=== PATIENT | female | born 1940 | race Caucasian/White ===

== ENCOUNTER 2016-04-27 07:32 | Inpatient (IN) | payer MEDICARE ==
[~2016-04-27] VITALS: Ht 157.5 cm; Wt 103.9 kg
[2016-05-04] MEDS ORDERED: ZOVI400T PO (11:19)
[2016-05-04] MEDS ORDERED: FLUO40CA PO (11:19)
[2016-05-04] MEDS ORDERED: FOLI1TAB4 PO (11:19)
--- NOTE | 2016-05-04 11:35 | MH ---
cc: Siria JAIN M.D. DATE OF ADMISSION: 05/09/2016 ADMITTING DIAGNOSIS Osteoarthritic degeneration, left knee. HISTORY OF PRESENT ILLNESS This pleasant 75-year-old diabetic, morbidly obese female is being admitted today for left total knee arthroplasty due to severe painful osteoarthritic degeneration left knee. PAST MEDICAL HISTORY 1. She recently underwent a right total knee in October. 2. History of anemia. 3. Anesthetic problems. 4. Depression. 5. Diabetes. 6. Emphysema. MEDICATIONS Current medications include: 1. Some skin creams. 2. Welchol. 3. Prempro. 4. Benicar. 5. p.o. glitazone. 6. Mercaptopurine. 7. Fluoxetine. 8. Bydureon. 9. Valacyclovir. REVIEW OF SYSTEMS Noncontributory. FAMILY HISTORY Noncontributory. PAST SURGICAL HISTORY Other surgeries include: 1. Carpal tunnel release. 2. Meniscal surgery. 3. Cholecystectomy. 4. Left ankle fracture surgery. SOCIAL HISTORY She does not smoke or drink. ALLERGIES No known allergies. PHYSICAL EXAMINATION GENERAL: We find a 75-year-old female well-developed, well-nourished, oriented x3, complaining of pain in her left knee. VITAL SIGNS: Blood pressure 122/78, pulse 78 and regular, respirations 18, temperature 97.7, pulse oximetry 97% on room air. HEENT: Eyes PERRLA, EOMI. Ears, nose and mouth clear. NECK: Supple. LUNGS: Clear. HEART: Regular rate. ABDOMEN: Soft. Positive bowel sounds. Nontender. EXTREMITIES: The left knee is tender with crepitance on range of motion. Neurovascularly intact to her toes. IMPRESSION The impression at this time is severe painful osteoarthritic degeneration, left knee. PLAN Admission for a left total knee arthroplasty today. The patient was given a prescription for postoperative pain and anticoagulation control in the office and understands to use the Hibiclens scrub and Bactroban preoperatively. MD MIRELLA Rice/ZOILA /2:33 PM /11:29 AM
[2016-05-04] MEDS ORDERED: MERC50TA PO (12:14)
[2016-05-04] MEDS ORDERED: PIOG30TA4 PO (12:19)
[2016-05-04] MEDS ORDERED: COLE1PAK PO (12:19)
[2016-05-04] MEDS ORDERED: EXEN1INJ SQ (12:19)
[2016-05-04] MEDS ORDERED: BENI40TA7 PO (12:19)
[2016-05-09] VITALS (7 sets, daily range): BP systolic 118–142; BP diastolic 49–63; PULSE 76–97; RESP 16–18; TEMP 96–99.6; O2SAT 96–98
[2016-05-09] MEDS ORDERED: LACTATED RINGER'S 1000 ML IV SCH (06:00)
[2016-05-09] MEDS ORDERED: INSULIN HUMAN REGULAR 1,000 UNITS/10 ML VIAL SQ PRN (06:00)
[2016-05-09] MEDS ORDERED: METOPROLOL TARTRATE 25 MG TAB PO PRN (06:00)
[2016-05-09] MEDS ORDERED: SODIUM CHLORID 0.9% 500 ML IV SCH (06:00)
[2016-05-09] MEDS ORDERED: VANCOMYCIN HCL 1000 MG VIAL ONE (06:06)
[2016-05-09] MEDS ORDERED: SODIUM CHLOR 0.9% 250 ML INJ 250 ML ONE (06:06)
[2016-05-09] MEDS ORDERED: VALA1TAB PO (06:07)
[2016-05-09 06:14] LABS: AUTOMATED NEUTROPHIL # 3.9 TH/MM3 (1.8-7.7); BASOPHIL # 0.1 TH/MM3 (0-0.2); BASOPHIL % 1.2 % (0.0-2.0); EOSINOPHIL # 0.1 TH/MM3 (0-0.4); EOSINOPHIL % 2.4 % (0.0-4.0); HEMO FLAGS DIFF FINAL; LYMPH % 23.4 % (9.0-44.0); LYMPHOCYTE # 1.4 TH/MM3 (1.0-4.8); MEAN CORPUSCULAR HEMOGLOBIN 34.4 PG (27.0-34.0); MEAN CORPUSCULAR HGB CONC 34.4 % (32.0-36.0); MONO % 8.2 % (0.0-8.0); NEUT % 64.8 % (16.0-70.0); PLATELET COUNT 241 TH/MM3 (150-450); RED CELL DISTRIBUTION WIDTH 16.2 % (11.6-17.2)
[2016-05-09] MEDS ORDERED: ceFAZolin 2 GM PREMIX 50 ML IV SCH (06:15)
[2016-05-09] MEDS ORDERED: CHLORHEXIDINE GLUCONATE 4% SOLN 120 ML BTL TOP SCH (06:15)
[2016-05-09] MEDS: TRANEXAMIC ACID IV SCH ×2 (06:15→08:26)
[2016-05-09] MEDS: SODIUM CHLORIDE 0.9% IV SCH ×2 (06:15→08:26)
[2016-05-09] MEDS ORDERED: VANCOMYCIN 1000 MG/NS 250 ML (for <70 kg) IV SCH ×2 (06:15)
[2016-05-09 06:24] LABS: BLOOD, URINE NEG (NEG); GLUCOSE,URINE NEG (NEG); GRANULAR CAST, URINE 1 /lpf; KETONE, URINE NEG (NEG); NITRITE,URINE NEG (NEG); SQUAMOUS EPITHELIAL CELL URINE <1 /hpf (0-5); TRANSITIONAL EPI CELLS, URINE 1 /hpf; URINE COLOR YELLOW (YELLW/STRAW)
[2016-05-09 06:31] LABS: ALKALINE PHOSPHATASE 75 U/L (45-117); TOTAL BILIRUBIN ADULT 0.3 MG/DL (0.2-1.0)
[2016-05-09 06:32] LABS: COMMENT (UR) CATH-CULT NOT IND; CULTURE IF INDICATED CATH CULTURE NOT IND
[2016-05-09 06:32] LABS: ALT (GPT) 26 U/L (10-53); ANION GAP 8 MEQ/L (5-15); AST (GOT) 26 U/L (15-37); BICARBONATE 23.3 MEQ/L (21.0-32.0); BLOOD UREA NITROGEN 25 MG/DL (7-18); CHLORIDE 109 MEQ/L (98-107); GLOMERULAR FILTRATION RATE 53 ML/MIN (>89); POTASSIUM 4.7 MEQ/L (3.5-5.1); SODIUM (NA) 140 MEQ/L (136-145)
[2016-05-09 06:36] LABS: APTT (PATIENT) 26.4 SEC (24.3-30.1); INTERNATIONAL NORMALIZED RATIO 0.9 RATIO; PROTHROMBIN TIME - PATIENT 9.9 SEC (9.8-11.6)
[2016-05-09] MEDS ORDERED: METOCLOPRAMIDE HCL 10 MG/2 ML VIAL ONE (07:12)
[2016-05-09] MEDS ORDERED: DEXAMETHASONE SOD PHOS 4 MG/ML VIAL ONE (07:12)
[2016-05-09] MEDS ORDERED: FAMOTIDINE 20 MG/2 ML VIAL ONE (07:12)
[2016-05-09] MEDS ORDERED: MIDAZOLAM HCL 5 MG/5 ML VIAL ONE (07:12)
[2016-05-09] MEDS: BUPIVACAINE LIPOSO PF 1.3% INJ 20 ML, BUPIVACAINE PF 0.25% INJ 20 ML in SODIUM CHLORIDE... P-ARTICULR SCH ×2 (07:30→10:10)
[2016-05-09] MEDS ORDERED: TOBRAMYCIN SULFATE 1200 MG VIAL ONE (08:32)
--- NOTE | 2016-05-09 08:43 | HHI.FF ---
Face to Face Verification Diagnosis: (1) Total knee replacement status Physical Therapy Gait training Knee: Total knee, Protocol: Left, Full weight bearing Canvas Knee Splint: When in bed & 2 pillows btw thighs Nursing RN: 3 days/week x 2 weeks Nursing: Ramila teaching, Dressing changes Dressing Changes: Daily dressing change, 4x4s, Gauze, Paper tape I have seen patient Sweta Dawson on 05/09/16. My clinical findings support the need for the requested home health care services because: Limited ability to care for self Infection w/ risk of complications I certify that my clinical findings support that this patient is homebound because: Unsteady gait/balance Siria Rios MD May 09, 2016 08:43
[2016-05-09] MEDS ORDERED: TEMAZEPAM 15 MG CAP PO PRN (08:45)
[2016-05-09] MEDS ORDERED: NALOXONE HCL 0.4 MG/ML AMP IV PRN (08:45)
[2016-05-09] MEDS ORDERED: TRANEXAMIC ACID INJ 0 MG in SODIUM CHLORIDE 0.9% INJ 100 ML IV SCH (08:45)
[2016-05-09] MEDS ORDERED: diphenhydrAMINE HCL 50 MG/ML VIAL IV PRN (08:45)
[2016-05-09] MEDS ORDERED: ACETAMINOPHEN 325 MG TAB PO PRN (08:45)
[2016-05-09] MEDS ORDERED: SODIUM CHLORIDE 0.9% FLUSH 5 ML FLUSH IVF PRN (08:45)
[2016-05-09] MEDS ORDERED: ACETAMINOPHEN/HYDROcodone 325 MG/7.5 MG TAB PO PRN (08:45)
[2016-05-09] MEDS: SODIUM CHLORIDE 0.9% FLUSH 5 ML FLUSH IVF SCH ×2 (09:00→21:39)
[2016-05-09] MEDS: MERCAPTOPURINE 50 MG TAB PO SCH (09:00)
[2016-05-09] MEDS ORDERED: ceFAZolin INJ 1,000 MG VIAL XX ONE (09:00)
[2016-05-09] MEDS ORDERED: SODIUM CHLORIDE 0.9% IV SCH (09:00)
[2016-05-09] MEDS ORDERED: NON-FORMULARY DRUG (Olmesartan-Hydrochlorothiazide (Benicar Hct) 1 TAB) PO SCH (09:00)
[2016-05-09] MEDS: valACYclovir HCL 500 MG TAB PO SCH (09:00)
[2016-05-09] MEDS: FOLIC ACID 1 MG TAB PO SCH (09:00)
[2016-05-09] MEDS: PIOGLITAZONE HCL 30 MG TAB PO SCH (09:00)
[2016-05-09] MEDS ORDERED: TRANEXAMIC ACID IV SCH (09:00)
[2016-05-09] MEDS: COLESEVELAM HCL 625 MG TAB PO SCH (09:00)
[2016-05-09] MEDS ORDERED: TOBRAMYCIN SULFATE 1200 MG VIAL OTHER ONE ×2 (09:28→10:04)
--- NOTE | 2016-05-09 09:32 | PD.CONS ---
HPI Service [facility] Consult Requested By Dr Rios Reason for Consult medical management Primary Care Physician Taco Jaramillo Diagnoses: (1) Diabetes (2) Emphysema of lung (3) Anemia (4) Osteoarthritis of knee (5) Total knee replacement status History of Present Illness Pleasant 75-year-old female with past medical history of diabetes mellitus, morbidly obese with BMI of 41.9, hypertension, depression, osteoarthritis. Patient today for left total knee arthroplasty due to severe painful osteoarthritic degeneration left knee. Patient was seen later after surgery. She has no pain currentl o home health occupational therapist pump. In the chair, Appears in nad. No cp, sob, n/v/d/c. She complaints of rash in her groin worse on the right inguinal area, says is painful. 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 She also has a h/o Chrons and follows with [facility]. Review of Systems Constitutional: DENIES: Fever, Chills, Change in appetite Endocrine: DENIES: Heat/cold intolerance Eyes: DENIES: Blurred vision, Eye pain Ears, nose, mouth, throat: DENIES: Tinnitus, Hearing loss, Vertigo, Nasal discharge, Oral lesions, Throat pain, Hoarseness, Ear Pain, Running Nose, Epistaxis, Sinus Pain, Toothache, Odynophagia Respiratory: DENIES: Apneas, Cough, Snoring, Wheezing, Hemoptysis, Sputum production, Shortness of breath Cardiovascular: DENIES: Chest pain, Palpitations, Syncope, Dyspnea on Exertion , PND, Lower Extremity Edema, Orthopnea, Claudication Gastrointestinal: DENIES: Abdominal pain, Black stools, Bloody stools, Constipation, Diarrhea, Nausea, Vomiting, Difficulty Swallowing, Anorexia Genitourinary: DENIES: Urinary frequency, Urinary incontinence, Urgency Musculoskeletal: COMPLAINS OF: Joint pain Integumentary: COMPLAINS OF: Rash Neurologic: DENIES: Abnormal gait, Headache, Localized weakness, Paresthesias, Seizures, Speech Problems, Tremor, Poor Balance Psychiatric: DENIES: Anxiety, Depression Past Family Social History Allergies: Coded Allergies: No Known Allergies (Verified , 09/13/07) Past Medical History Diabetes mellitus, hypertension, morbidly obese BMI 41.9, osteoarthritis, anemia , depression, emphysema Past Surgical History Status post recent right total knee arthroplasty Carpal tunnel release Meniscal surgery Cholecystectomy Left ankle fracture surgery Reported Medications Reported Meds & Active Scripts Active Reported Valacyclovir (Valacyclovir HCl) 1 Gm Tab 1,000 Mg PO DAILY Welchol (Colesevelam HCl) 3.75 Gm Pkt 3.75 Gm PO DAILY Bydureon Pen Inj (Exenatide) 2 Mg Pfpen 2 Mg SQ Q7D Pioglitazone (Pioglitazone HCl) 30 Mg Tab 30 Mg PO DAILY Benicar Hct (Olmesartan-Hydrochlorothiazide) 40-25 mg Tab 1 Tab PO DAILY Mercaptopurine 50 Mg Tab 100 Mg PO DAILY Folate (Folic Acid) 1 Mg Tab 1 Mg PO DAILY Fluoxetine (Fluoxetine HCl) 40 Mg Cap 40 Cap PO DAILY Family History Coronary artery disease, diabetes and stroke runs in family Social History Denies alcohol use, illicit drug use or tobacco use. Physical Exam Vital Signs Vital Signs Date Time Temp Pulse Resp B/P Pulse Ox O2 Delivery O2 Flow Rate FiO2 05/09/16 05:57 97.1 76 18 118/60 96 Physical Exam GENERAL: This is a well-nourished, well-developed patient, in no apparent distress. SKIN: Intertriginous red beefy rash in the groin bilaterally worse on the right inguinal area. HEAD: Atraumatic. Normocephalic. No temporal or scalp tenderness. EYES: Pupils equal round and reactive. Extraocular motions intact. No scleral icterus. No injection or drainage. ENT: Nose without bleeding, purulent drainage or septal hematoma. Throat without erythema, tonsillar hypertrophy or exudate. Uvula midline. Airway patent. NECK: Trachea midline. No JVD or lymphadenopathy. Supple, nontender, no meningeal signs. CARDIOVASCULAR: Regular rate and rhythm without murmurs, gallops, or rubs. RESPIRATORY: Clear to auscultation. Breath sounds equal bilaterally. No wheezes , rales, or rhonchi. GASTROINTESTINAL: Abdomen soft, non-tender, nondistended. No hepato-splenomegaly , or palpable masses. No guarding. MUSCULOSKELETAL: Extremities without clubbing, cyanosis, or edema. No calf tenderness. SCDs in place. NEUROLOGICAL: Awake and alert. Cranial nerves II through XII intact. Motor and sensory grossly within normal limits. Five out of 5 muscle strength in all muscle groups. Normal speech. Laboratory Laboratory Tests Test 05/09/16 05/09/16 05:58 06:00 Urine Color YELLOW Urine Turbidity CLEAR Urine pH 5.0 Urine Specific [place] 1.019 Urine Protein TRACE Urine Glucose (UA) NEG Urine Ketones NEG Urine Occult Blood NEG Urine Nitrite NEG Urine Bilirubin NEG Urine Urobilinogen LESS THAN 2.0 Urine Leukocyte Esterase TRACE Urine RBC LESS THAN 1 Urine WBC 1 Urine Squamous Epithelial <1 Cells Urine Transitional Epithelial 1 Cells Urine Granular Casts 1 Microscopic Urinalysis Comment CATH-CULT NOT IND White Blood Count 6.0 Red Blood Count 3.50 Hemoglobin 12.1 Hematocrit 35.0 Mean Corpuscular Volume 100.0 Mean Corpuscular Hemoglobin 34.4 Mean Corpuscular Hemoglobin 34.4 Concent Red Cell Distribution Width 16.2 Platelet Count 241 Mean Platelet Volume 9.5 Neutrophils (%) (Auto) 64.8 Lymphocytes (%) (Auto) 23.4 Monocytes (%) (Auto) 8.2 Eosinophils (%) (Auto) 2.4 Basophils (%) (Auto) 1.2 Neutrophils # (Auto) 3.9 Lymphocytes # (Auto) 1.4 Monocytes # (Auto) 0.5 Eosinophils # (Auto) 0.1 Basophils # (Auto) 0.1 CBC Comment DIFF FINAL Differential Comment Prothrombin Time 9.9 Prothromb Time International 0.9 Ratio Activated Partial 26.4 Thromboplast Time Sodium Level 140 Potassium Level 4.7 Chloride Level 109 Carbon Dioxide Level 23.3 Anion Gap 8 Blood Urea Nitrogen 25 Creatinine 1.02 Estimat Glomerular Filtration 53 Rate Random Glucose 137 Calcium Level 8.5 Total Bilirubin 0.3 Aspartate Amino Transf 26 (AST/SGOT) Alanine Aminotransferase 26 (ALT/SGPT) Alkaline Phosphatase 75 Total Protein 6.7 Albumin 3.1 Blood Type O POSITIVE Antibody Screen NEGATIVE Blood Bank Comment Result Diagram: 05/09/16 0600 05/09/16 0600 Imaging Last Impressions Knee X-Ray 05/09/16 0839 Signed Impressions: Service Date/Time: Monday, May 09, 2016 11:27 - CONCLUSION: 1. Postoperative left total knee replacement. No complications identified. Michael De La Garza MD Assessment and Plan Assessment and Plan Pleasant 75-year-old female with past medical history of diabetes mellitus, morbidly obese with BMI of 41.9, hypertension, also osteoarthritis. Patient today for left total knee arthroplasty due to severe painful osteoarthritic degeneration left knee. Severe OA S/P left total knee arthroplasty Management per surgeon Dr Rios DVT ppx per surgeon Rash, intertriginous areas. Patient has a h/o HSV , continue valtrex. Will add nystatin/triamcinolone cream bid topical. HTN : continue Olmesartan-Hydrochlorothiazide 40-25 mg daily DM2 continue home meds , monitor BS Depression: continue Fluoxetine 40 Mg daily Chron's disease continue home meds. Follows with Dr Lamar LUJAN as OP Code Status full Discussed Condition With Patient, nurse Georgie Gil MD May 09, 2016 09:32
[2016-05-09] MEDS ORDERED: LACTATED RINGER'S 1000 ML INJ 1,000 ML IV ONE (10:35)
[2016-05-09] MEDS ORDERED: ONDANSETRON HCL 4 MG/2 ML VIAL IV PUSH ONE (10:35)
[2016-05-09] MEDS ORDERED: PROPOFOL 200 MG/20 ML AMP IV ONE (10:35)
[2016-05-09] MEDS ORDERED: COMMODE 3-IN-11 MIS (10:45)
[2016-05-09] MEDS ORDERED: CPMMACHINE (10:45)
[2016-05-09] MEDS ORDERED: WALKER WHEELS/F1 MIS (10:45)
[2016-05-09] MEDS ORDERED: DO NOT ADM ANY ANTICOAGULANT DRUGS XX PRN (11:15)
[2016-05-09] MEDS ORDERED: Post-op Orders (for Pharmacy) MISC XX ONE (11:15)
[2016-05-09] MEDS ORDERED: fentaNYL CITRATE 250 MCG/5 ML AMP ONE (11:19)
[2016-05-09] MEDS ORDERED: *morphine SULFATE 8 MG/ML PERIprocedure ONLY ONE (11:23)
[2016-05-09] MEDS: LACTATED RINGER'S 1000 ML INJ 1,000 ML IV SCH ×2 (11:50→21:39)
--- NOTE | 2016-05-09 11:53 | RADRPT ---
EXAM DATE/TIME: 05/09/2016 11:27 [facility] COMPARISON: No previous studies available for comparison. INDICATIONS : Post op left knee surgery. MEDICAL HISTORY : None. SURGICAL HISTORY : None. ENCOUNTER: Initial ACUITY: 1 day PAIN SCORE: 4/10 LOCATION: Left knee FINDINGS: Two view examination of the left knee demonstrates postoperative left total knee replacement. Normal alignment. Air in soft tissues. CONCLUSION: 1. Postoperative left total knee replacement. No complications identified. Michael De La Garza MD on May 09, 2016 at 11:51 Board Certified Radiologist. This report was verified electronically.
--- NOTE | 2016-05-09 12:00 | MP ---
cc: Siria RIOS M.D. DATE OF SURGERY 05/09/2016 PREOPERATIVE DIAGNOSIS Osteoarthritic degeneration left knee. POSTOPERATIVE DIAGNOSIS Osteoarthritic degeneration left knee. SURGERY PERFORMED Left total knee arthroplasty using Consensus components with pre-made cutting jigs, size 3 femur, 1 tibia, 12 insert and #1 patella with two batches of antibiotic impregnated cobalt blue cement. SURGEON Dr. Rios SUPERINTENDENT MEASUREMENT Malcom Tran, [employer] ANESTHESIA General intubation and block. PROCEDURE After successful induction of anesthesia, the patient is placed on the operating room table in the supine position. The knee is prepped and draped in the usual manner. A tourniquet is inflated at the upper thigh and set to 300 mmHg pressure after exsanguination of the lower extremity. A longitudinal incision is made extending from 3 inches proximal to the superior pole of the patella, across the patella in longitudinal fashion, and down past the insertion of the tibial tubercle into the proximal tibia. The incision is carried down through subcutaneous tissue along the medial aspect of the patella and retinaculum, down through the capsule to expose the knee joint. The patella and patellar tendon are freed up enough to allow the patella to be inverted and retracted off the lateral side of the knee joint. The knee joint is left exposed. Small osteophytes are removed. All soft tissue is removed to allow proper position of the femoral and tibial cutting jig guide. The first femoral jig is then inserted along the distal end of the femur after first measuring to decide whether this is a small, medium, or large component. The notch is then drilled and the tibial cutting guide inserted into the femoral cutting guide, along with the ankle brace to allow for proper measurement of the tibial cutting surface that needed to be resected. Pins are inserted into the tibial cutting jig and femoral cutting jig to hold them in place. An oscillating saw is then used to resect the surface of the tibia. The surface of the tibia is then completely removed using sharp and blunt dissection. The anterior and posterior cuts of the femur are then made as well using an oscillating saw through the cutting guide. All guides are then removed and the varus/valgus angulation cutting guide applied to the femur for proper measurement of the proper amount of valgus. The anterior cutting guide for the femur is then inserted at the anterior femoral cuts made. Next, the first block trial is inserted into the femur to allow for proper condyle drill holes to be made which are then made followed by removal of the bone between the condyles using an oscillating saw as well as the bone removed at the most posterior surface of the condyle. After this, this guide is removed and the chamfer cuts made using the chamfer cutting guide from both anterior and posterior. Next, the femoral trial is then inserted, the tibial surface reflected anterior to expose the tibial surface and a tibial stem guide is inserted after first measuring for a standard, standard plus, large, or large plus surface to be used. After the stem is impacted the trial tibial surface is applied followed by the trial meniscal components. After full range of motion is found with the appropriate length meniscal components varying the patella is prepared by resecting the posterior aspect of the patella using an oscillating saw, inserting a trial. The trial is then removed and the cruciate cutting guide applied using the bur to cut the cruciate cuts. After cruciate cuts are made all trials are removed. The wound is irrigated copiously with antibiotic solution and Water Pik and the actual components inserted into place using Consensus components with pre-made cutting jigs, size 3 femur, 1 tibia, 12 insert and #1 patella with two batches of antibiotic impregnated cobalt blue cement. After the cement has hardened and the components are found to have full range of motion with no instability, the tourniquet is deflated, total tourniquet time being 60 minutes at 300 mmHg pressure. 120 cc of Exparel used around the knee for extra pain control. The wound again is irrigated copiously with antibiotic solution, meticulous hemostasis achieved. The deep fascia approximated with running #2 Quill, the subcutaneous tissue approximated using interrupted and running 2-0 and 3-0 Monocryl sutures, and Steri-Strips and sterile dressing and knee immobilizer applied. DRAINS No drain utilized. ESTIMATED BLOOD LOSS 200 cc. COUNTS Sponge and suture counts were correct. The patient tolerated the procedure well and left the operating in satisfactory condition. J. MD MIRELLA Forbes/SSB /10:41 AM /11:51 AM
[2016-05-09] MEDS ORDERED: BUPIVACAINE HCL PF 0.25% 30 ML VIAL NB ONE (12:02)
[2016-05-09] MEDS ORDERED: BUPIVACAINE HCL PF 0.5% 30 ML VIAL NB ONE (12:02)
[2016-05-09] MEDS: MORPHINE SULFATE 30 MG/30 ML PCA IV SCH (12:21)
[2016-05-09] MEDS: PCA - TOTAL MG MORPHINE DELIVERED PER SHIFT SCH ×2 (14:00→21:39)
[2016-05-09] MEDS: NYSTATIN/TRIAMCINOLONE CREAM 15 GM TOPICAL SCH (21:00)
[2016-05-10] MEDS: MORPHINE SULFATE 30 MG/30 ML PCA IV SCH (01:56)
[2016-05-10 04:00] VITALS: BP 127/60; PULSE 110; RESP 17; TEMP 98.2; O2SAT 90
[2016-05-10] MEDS: PCA - TOTAL MG MORPHINE DELIVERED PER SHIFT SCH (06:00)
[2016-05-10 08:00] VITALS: BP 109/48; PULSE 109; RESP 19; TEMP 98.4; O2SAT 96
[2016-05-10 08:02] LABS: HEMATOCRIT 33.3 % (35.0-46.0); REVIEW FLAG FINAL
--- NOTE | 2016-05-10 08:18 | PD.ORT.PN ---
Subjective Subjective Remarks pt comfortable today. No complaints. Objective Vitals Vital Signs Date Time Temp Pulse Resp B/P Pulse Ox O2 Delivery O2 Flow Rate FiO2 05/10/16 04:00 98.2 110 17 127/60 90 05/09/16 23:59 99.6 97 16 139/62 96 05/09/16 23:00 97 Nasal Cannula 2.00 05/09/16 19:53 Nasal Cannula 2.00 05/09/16 19:00 98.4 92 16 122/49 96 05/09/16 16:36 98 Nasal Cannula 2.00 05/09/16 16:22 96.0 93 16 131/60 96 05/09/16 12:50 98.3 95 17 142/63 96 05/09/16 12:30 90 16 127/65 97 Nasal Cannula 2 05/09/16 12:21 15 05/09/16 12:15 92 16 128/60 97 Nasal Cannula 2 05/09/16 12:00 92 16 120/60 97 Nasal Cannula 2 05/09/16 11:45 90 16 129/62 98 Nasal Cannula 2 05/09/16 11:30 88 16 104/43 97 Nasal Cannula 2 05/09/16 11:15 97.7 88 16 142/65 98 Nasal Cannula 2 I/O 05/09/16 05/09/16 05/09/16 05/10/16 05/10/16 05/10/16 07:00 15:00 23:00 07:00 15:00 23:00 Intake Total 100 ml 1364 ml 1174 ml Output Total 100 ml 300 ml 350 ml Balance 0 ml 1064 ml 824 ml Intake Oral 480 ml 480 ml IV Total 100 ml 884 ml 694 ml Output Urine Total 100 ml 300 ml 350 ml # Bowel Movements 0 0 Result Diagram: 05/09/16 0600 05/09/16 0600 Imaging Last 24 hours Impressions Knee X-Ray 05/09/16 0839 Signed Impressions: Service Date/Time: Monday, May 09, 2016 11:27 - CONCLUSION: 1. Postoperative left total knee replacement. No complications identified. Michael De La Garza MD Objective Remarks Dressing dry and intact. Block still working. No calf tenderness. Assessment & Plan Ortho Post Op Day #: 1 Problem List: Assessment and Plan OOB, PT, watch rash in groin - medical management. Siria Rios MD May 10, 2016 08:18
[2016-05-10] MEDS: PIOGLITAZONE HCL 30 MG TAB PO SCH (09:12)
[2016-05-10] MEDS: FOLIC ACID 1 MG TAB PO SCH (09:13)
[2016-05-10] MEDS: SODIUM CHLORIDE 0.9% FLUSH 5 ML FLUSH IVF SCH ×2 (09:13→21:48)
[2016-05-10] MEDS: HYDROCHLOROTHIAZIDE 25 MG TAB PO SCH (09:13)
[2016-05-10] MEDS: LOSARTAN 50 MG TAB PO SCH (09:13)
[2016-05-10] MEDS: MERCAPTOPURINE 50 MG TAB PO SCH (09:19)
[2016-05-10] MEDS: valACYclovir HCL 500 MG TAB PO SCH (09:20)
[2016-05-10] MEDS: NYSTATIN/TRIAMCINOLONE CREAM 15 GM TOPICAL SCH ×2 (09:20→21:47)
[2016-05-10] MEDS: COLESEVELAM HCL 625 MG TAB PO SCH (09:20)
[2016-05-10] MEDS: ENOXAPARIN SODIUM 30 MG/0.3 ML SYRINGE SQ SCH ×2 (09:33→21:47)
[2016-05-10] MEDS: LACTATED RINGER'S 1000 ML INJ 1,000 ML IV SCH ×2 (09:36→21:49)
[2016-05-10] MEDS ORDERED: PNEUMOCOCCAL POLYVALENT INJ 25 MCG/0.5 ML SYR IM ONE (10:00)
[2016-05-10 12:00] VITALS: BP 113/48; PULSE 98; RESP 18; TEMP 98.1; O2SAT 96
[2016-05-10] MEDS: ACETAMINOPHEN/HYDROcodone 325 MG/7.5 MG TAB PO PRN ×3 (12:11→21:48)
[2016-05-10] MEDS: FLUoxetine HCL 20 MG CAP PO SCH (12:14)
--- NOTE | 2016-05-10 12:53 | HHI.PR ---
Subjective Remarks pain controlled very motivated with physical therapy good IS effort Objective Vitals Vital Signs Date Time Temp Pulse Resp B/P Pulse Ox O2 Delivery O2 Flow Rate FiO2 05/10/16 08:00 98.4 109 19 109/48 96 05/10/16 04:00 98.2 110 17 127/60 90 05/09/16 23:59 99.6 97 16 139/62 96 05/09/16 23:00 97 Nasal Cannula 2.00 05/09/16 19:53 Nasal Cannula 2.00 05/09/16 19:00 98.4 92 16 122/49 96 05/09/16 16:36 98 Nasal Cannula 2.00 05/09/16 16:22 96.0 93 16 131/60 96 I/O 05/09/16 05/09/16 05/09/16 05/10/16 05/10/16 05/10/16 06:59 14:59 22:59 06:59 14:59 22:59 Intake Total 100 ml 1364 ml 1174 ml Output Total 100 ml 300 ml 350 ml Balance 0 ml 1064 ml 824 ml Intake Oral 480 ml 480 ml IV Total 100 ml 884 ml 694 ml Output Urine Total 100 ml 300 ml 350 ml # Bowel Movements 0 0 Result Diagram: 05/10/16 0705 05/09/16 0600 Imaging Last Impressions Knee X-Ray 05/09/16 0839 Signed Impressions: Service Date/Time: Monday, May 09, 2016 11:27 - CONCLUSION: 1. Postoperative left total knee replacement. No complications identified. Michael De La Garza MD Objective Remarks GENERAL: awake and alert, oriented x 3 SKIN: Warm and dry. EYES: No scleral icterus. No injection or drainage. NECK: Supple, trachea midline. No JVD or lymphadenopathy. CARDIOVASCULAR: Regular rate and rhythm without murmurs, gallops, or rubs. RESPIRATORY: Breath sounds equal bilaterally. No accessory muscle use. GASTROINTESTINAL: Abdomen soft, non-tender, nondistended. MUSCULOSKELETAL: No cyanosis, or edema. left knee- post op dressing in place Procedures left total knee arthroplasty Urinary Catheter: Yes Assessment to: Continue Tsang insert reason: Surgical/Invasive Proced Date of Insertion: May 09, 2016 A/P Problem List: (1) Diabetes ICD Code: E11.9 Status: Acute (2) Emphysema of lung ICD Code: J43.9 Status: Acute (3) Anemia ICD Code: D64.9 Status: Acute (4) Osteoarthritis of knee ICD Code: M17.9 Status: Acute (5) Total knee replacement status ICD Code: Z96.659 Status: Acute Assessment and Plan Pleasant 75-year-old female with past medical history of diabetes mellitus, morbidly obese with BMI of 41.9, hypertension, also osteoarthritis. Patient today for left total knee arthroplasty due to severe painful osteoarthritic degeneration left knee. Severe OA S/P left total knee arthroplasty pain Management per surgeon Dr Gabriel Mcgrath for DVT ppx per surgeon Rash, intertriginous areas. Patient has a h/o HSV , continue valtrex. HTN : continue Olmesartan-Hydrochlorothiazide 40-25 mg daily DM2 continue home meds , monitor BS Depression: continue Fluoxetine 40 Mg daily Chron's disease continue home meds. Follows with Dr Lamar LUJAN as OP CM ff along with DC planning- she prefers to go home wiht home PT Vishnu Gunter MD May 10, 2016 12:53
[2016-05-10 16:00] VITALS: BP 107/46; PULSE 91; RESP 18; TEMP 96.8; O2SAT 95
[2016-05-10] MEDS: ONDANSETRON HCL 4 MG/2 ML VIAL IVP PRN (16:42)
[2016-05-10 18:27] VITALS: O2SAT 95
[2016-05-10 20:00] VITALS: BP 125/54; PULSE 98; RESP 18; TEMP 99.4; O2SAT 95
[2016-05-10] MEDS: DOCUSATE SODIUM 100 MG CAP PO SCH (21:47)
[2016-05-10] MEDS: MULTIVITAMINS/MINERALS THERAPEUTIC TAB PO SCH (21:47)
[2016-05-11] VITALS (7 sets, daily range): BP systolic 107–129; BP diastolic 50–62; PULSE 92–112; RESP 18–19; TEMP 96.6–99.4; O2SAT 92–95
[2016-05-11] MEDS: ACETAMINOPHEN/HYDROcodone 325 MG/7.5 MG TAB PO PRN ×3 (05:52→19:24)
[2016-05-11 07:21] LABS: HEMATOCRIT 29.5 % (35.0-46.0); REVIEW FLAG FINAL
[2016-05-11] MEDS ORDERED: PT OWN MED: Exenatide Pen Inj (Bydureon Pen Inj) 2 MG SQ SCH (09:00)
[2016-05-11] MEDS: COLESEVELAM HCL 625 MG TAB PO SCH (09:54)
[2016-05-11] MEDS: DOCUSATE SODIUM 100 MG CAP PO SCH ×2 (09:57→19:51)
[2016-05-11] MEDS: FLUoxetine HCL 20 MG CAP PO SCH (09:57)
[2016-05-11] MEDS: FOLIC ACID 1 MG TAB PO SCH (09:58)
[2016-05-11] MEDS: valACYclovir HCL 500 MG TAB PO SCH (09:58)
[2016-05-11] MEDS: SODIUM CHLORIDE 0.9% FLUSH 5 ML FLUSH IVF SCH ×2 (09:58→19:51)
[2016-05-11] MEDS: HYDROCHLOROTHIAZIDE 25 MG TAB PO SCH (09:58)
[2016-05-11] MEDS: MULTIVITAMINS/MINERALS THERAPEUTIC TAB PO SCH ×2 (09:59→19:50)
[2016-05-11] MEDS: LOSARTAN 50 MG TAB PO SCH (09:59)
[2016-05-11] MEDS: PIOGLITAZONE HCL 30 MG TAB PO SCH (09:59)
[2016-05-11] MEDS: MERCAPTOPURINE 50 MG TAB PO SCH (10:05)
[2016-05-11] MEDS: NYSTATIN/TRIAMCINOLONE CREAM 15 GM TOPICAL SCH ×2 (10:06→19:52)
[2016-05-11] MEDS: ENOXAPARIN SODIUM 30 MG/0.3 ML SYRINGE SQ SCH ×2 (10:07→19:51)
[2016-05-11] MEDS ORDERED: BACITRACIN OINT 0.9 GM PKT TOP PRN (10:15)
[2016-05-11] MEDS: LACTATED RINGER'S 1000 ML INJ 1,000 ML IV SCH ×2 (10:39→20:15)
--- NOTE | 2016-05-11 10:48 | HHI.PR ---
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 500 mg daily since July 2015 at one point was on Acycolvir history of anal vaginal fistula 1989 Objective Vitals Vital Signs Date Time Temp Pulse Resp B/P Pulse Ox O2 Delivery O2 Flow Rate FiO2 05/11/16 08:00 98.8 110 19 120/50 93 05/11/16 07:41 Room Air 05/11/16 04:00 99.4 112 18 129/62 93 05/11/16 00:00 99.1 108 18 114/56 92 05/10/16 20:00 99.4 98 18 125/54 95 05/10/16 18:27 95 Nasal Cannula 2.00 05/10/16 16:00 96.8 91 18 107/46 95 05/10/16 13:25 Room Air 05/10/16 12:00 98.1 98 18 113/48 96 I/O 05/10/16 05/10/16 05/10/16 05/11/16 05/11/16 05/11/16 06:59 14:59 22:59 06:59 14:59 22:59 Intake Total 1174 ml 1260 ml 360 ml 240 ml Output Total 350 ml 400 ml 750 ml 1050 ml Balance 824 ml 860 ml -390 ml -810 ml Intake Oral 480 ml 1260 ml 360 ml 240 ml IV Total 694 ml Output Urine Total 350 ml 400 ml 750 ml 1050 ml # Bowel Movements 0 0 0 0 Result Diagram: 05/11/16 0644 05/09/16 0600 Imaging Last Impressions Knee X-Ray 05/09/16 0839 Signed Impressions: Service Date/Time: Monday, May 09, 2016 11:27 - CONCLUSION: 1. Postoperative left total knee replacement. No complications identified. Michael De La Garza MD Objective Remarks GENERAL: awake and alert, oriented x 3 SKIN: Warm and dry. EYES: No scleral icterus. No injection or drainage. NECK: Supple, trachea midline. No JVD or lymphadenopathy. CARDIOVASCULAR: Regular rate and rhythm without murmurs, gallops, or rubs. RESPIRATORY: Breath sounds equal bilaterally. No accessory muscle use. GASTROINTESTINAL: Abdomen soft, non-tender, nondistended. vaginal exam- labial folds raw, no vaginal discharge MUSCULOSKELETAL: No cyanosis, or edema. left knee- post op dressing in place Procedures left total knee arthroplasty Urinary Catheter: Yes Date of Insertion: May 09, 2016 A/P Problem List: (1) Diabetes ICD Code: E11.9 Status: Acute (2) Emphysema of lung ICD Code: J43.9 Status: Acute (3) Anemia ICD Code: D64.9 Status: Acute (4) Osteoarthritis of knee ICD Code: M17.9 Status: Acute (5) Total knee replacement status ICD Code: Z96.659 Status: Acute Assessment and Plan Pleasant 75-year-old female with past medical history of diabetes mellitus, morbidly obese with BMI of 41.9, hypertension, also osteoarthritis. Patient today for left total knee arthroplasty due to severe painful osteoarthritic degeneration left knee. Severe OA S/P left total knee arthroplasty pain Management per surgeon Dr Gabriel Mcgrath for DVT ppx per surgeon Dipti salazar. Nystatin h/o HSV , continue valtrex. will consult ID for recommendation for both above HTN : continue Olmesartan-Hydrochlorothiazide 40-25 mg daily DM2 continue home meds , monitor BS Depression: continue Fluoxetine 40 Mg daily Chron's disease continue home meds. Follows with Dr Lamar LUJAN as OP CM ff along with DC planning- - now agreeable to [facility] Vishnu Gunter MD May 11, 2016 10:48
[2016-05-11] MEDS ORDERED: ENOX30P SQ (11:05)
--- NOTE | 2016-05-11 11:20 | PD.ORT.PN ---
Subjective Subjective Remarks pt comfortable today. No complaints at moment. Refused class yesterday. Objective Vitals Vital Signs Date Time Temp Pulse Resp B/P Pulse Ox O2 Delivery O2 Flow Rate FiO2 05/11/16 08:00 98.8 110 19 120/50 93 05/11/16 07:41 Room Air 05/11/16 04:00 99.4 112 18 129/62 93 05/11/16 00:00 99.1 108 18 114/56 92 05/10/16 20:00 99.4 98 18 125/54 95 05/10/16 18:27 95 Nasal Cannula 2.00 05/10/16 16:00 96.8 91 18 107/46 95 05/10/16 13:25 Room Air 05/10/16 12:00 98.1 98 18 113/48 96 I/O 05/10/16 05/10/16 05/10/16 05/11/16 05/11/16 05/11/16 06:59 14:59 22:59 06:59 14:59 22:59 Intake Total 1174 ml 1260 ml 360 ml 240 ml Output Total 350 ml 400 ml 750 ml 1050 ml Balance 824 ml 860 ml -390 ml -810 ml Intake Oral 480 ml 1260 ml 360 ml 240 ml IV Total 694 ml Output Urine Total 350 ml 400 ml 750 ml 1050 ml # Bowel Movements 0 0 0 0 Result Diagram: 05/11/16 0644 05/09/16 0600 Imaging Last 24 hours Impressions Knee X-Ray 05/09/16 0839 Signed Impressions: Service Date/Time: Monday, May 09, 2016 11:27 - CONCLUSION: 1. Postoperative left total knee replacement. No complications identified. Michael De La Garza MD Objective Remarks Dressing dry and intact. No calf tenderness. Assessment & Plan Ortho Post Op Day #: 2 Problem List: Assessment and Plan OOB, PT, watch rash in groin - medical management. SNF for rehab possibly tomorrow. Siria Rios MD May 11, 2016 11:20
[2016-05-11] MEDS ORDERED: MAGNESIUM HYDROXIDE SUSP 30 ML CUP PO PRN (22:00)
[2016-05-12] VITALS: BP_SYST 125; BP_SYST 144; BP_DIAS 56; BP_DIAS 66; PULSE 54; PULSE 94; RESP 18; TEMP 98.5; O2SAT 93; O2SAT 96
[2016-05-12] MEDS: ACETAMINOPHEN/HYDROcodone 325 MG/7.5 MG TAB PO PRN ×3 (03:42→13:04)
[2016-05-12] MEDS: ONDANSETRON HCL 4 MG/2 ML VIAL IVP PRN (03:44)
[2016-05-12 08:00] VITALS: BP 95/49; PULSE 94; RESP 18; TEMP 96.2; O2SAT 94
[2016-05-12] MEDS: PIOGLITAZONE HCL 30 MG TAB PO SCH (08:47)
[2016-05-12] MEDS: LOSARTAN 50 MG TAB PO SCH (08:47)
[2016-05-12] MEDS: ENOXAPARIN SODIUM 30 MG/0.3 ML SYRINGE SQ SCH (08:47)
[2016-05-12] MEDS: valACYclovir HCL 500 MG TAB PO SCH (08:49)
[2016-05-12] MEDS: MERCAPTOPURINE 50 MG TAB PO SCH (08:49)
[2016-05-12] MEDS: COLESEVELAM HCL 625 MG TAB PO SCH (08:49)
[2016-05-12] MEDS: MULTIVITAMINS/MINERALS THERAPEUTIC TAB PO SCH (08:49)
[2016-05-12] MEDS: FLUoxetine HCL 20 MG CAP PO SCH (08:50)
[2016-05-12] MEDS: FOLIC ACID 1 MG TAB PO SCH (08:50)
[2016-05-12] MEDS: DOCUSATE SODIUM 100 MG CAP PO SCH (08:51)
[2016-05-12] MEDS: SODIUM CHLORIDE 0.9% FLUSH 5 ML FLUSH IVF SCH (08:51)
[2016-05-12] MEDS: HYDROCHLOROTHIAZIDE 25 MG TAB PO SCH (08:55)
[2016-05-12] MEDS: NYSTATIN/TRIAMCINOLONE CREAM 15 GM TOPICAL SCH (09:00)
--- NOTE | 2016-05-12 09:31 | PD.ORT.PN ---
Subjective Subjective Remarks pt comfortable today. No complaints at moment. Objective Vitals Vital Signs Date Time Temp Pulse Resp B/P Pulse Ox O2 Delivery O2 Flow Rate FiO2 05/12/16 08:00 96.2 94 18 95/49 94 05/12/16 00:00 98.5 94 18 125/56 93 05/11/16 20:00 97.8 102 18 114/53 94 05/11/16 15:44 97.4 95 18 107/52 95 05/11/16 13:23 93 21 05/11/16 12:00 96.6 92 18 121/51 93 I/O 05/11/16 05/11/16 05/11/16 05/12/16 05/12/16 05/12/16 07:00 15:00 23:00 07:00 15:00 23:00 Intake Total 240 ml 1200 ml 480 ml 240 ml Output Total 1050 ml 700 ml Balance -810 ml 500 ml 480 ml 240 ml Intake Oral 240 ml 1200 ml 480 ml 240 ml Output Urine Total 1050 ml 700 ml # Voids 2 4 # Bowel Movements 0 0 1 0 Result Diagram: 05/11/16 0644 05/09/16 0600 Imaging Last 24 hours Impressions Knee X-Ray 05/09/16 0839 Signed Impressions: Service Date/Time: Monday, May 09, 2016 11:27 - CONCLUSION: 1. Postoperative left total knee replacement. No complications identified. Michael De La Garza MD Objective Remarks Dressing dry and intact. No calf tenderness. Sitting up in chair. Assessment & Plan Ortho Post Op Day #: 3 Problem List: Assessment and Plan OOB, PT, watch rash in groin - medical management. Ok for DC to rehab unit today. Siria Rios MD May 12, 2016 09:31
--- NOTE | 2016-05-12 09:39 | HHI.DS ---
Discharge Summary Admission Date May 09, 2016 at 05:27 Discharge Date: May 12, 2016 Admitting Diagnosis osteoarthritic degeneration left knee. Diagnosis: (1) Total knee replacement status Diagnosis: Principal Brief History This is a 75 year old female patient CBC/BMP: 05/11/16 0644 05/09/16 0600 Significant Findings Laboratory Tests Test 05/10/16 05/11/16 07:05 06:44 Hemoglobin 11.1 GM/DL 10.2 GM/DL (11.6-15.3) (11.6-15.3) Hematocrit 33.3 % 29.5 % (35.0-46.0) (35.0-46.0) PE at Discharge Dressing dry and intact. No calf tenderness. Sitting up in chair. Hospital Course pt underwent left total knee arthroplasty on day of admission. She received a course of prophylactic IV antibiotics and started on anticoagulation therapy. She remained afebrile with stable vital signs. She tolerated food and fluids well and began OOB and had PT twice daily. She was discharged on POD #3 in good condition to [facility] for continuation of care tolerating PO pain meds. Pt Condition on Discharge: Good Discharge Disposition: Rehab Inpatient Discharge Instructions Diet Instructions: Diabetic Diet Activities You Can Perform: Weight Bearing as Deepika, Shower Only-No Bath Activities to Avoid: Bathing, Driving Siria Rios MD May 12, 2016 09:39
[2016-05-12] MEDS ORDERED: HYDR-3580 PO (09:40)
--- NOTE | 2016-05-12 10:05 | HHI.PR ---
Subjective Remarks very motivated with physical therapy pain controlled Objective Vitals Vital Signs Date Time Temp Pulse Resp B/P Pulse Ox O2 Delivery O2 Flow Rate FiO2 05/12/16 08:00 96.2 94 18 95/49 94 05/12/16 00:00 98.5 94 18 125/56 93 05/11/16 20:00 97.8 102 18 114/53 94 05/11/16 15:44 97.4 95 18 107/52 95 05/11/16 13:23 93 21 05/11/16 12:00 96.6 92 18 121/51 93 I/O 05/11/16 05/11/16 05/11/16 05/12/16 05/12/16 05/12/16 07:00 15:00 23:00 07:00 15:00 23:00 Intake Total 240 ml 1200 ml 480 ml 240 ml Output Total 1050 ml 700 ml Balance -810 ml 500 ml 480 ml 240 ml Intake Oral 240 ml 1200 ml 480 ml 240 ml Output Urine Total 1050 ml 700 ml # Voids 2 4 # Bowel Movements 0 0 1 0 Result Diagram: 05/11/16 0644 05/09/16 0600 Imaging Last Impressions Knee X-Ray 05/09/16 0839 Signed Impressions: Service Date/Time: Monday, May 09, 2016 11:27 - CONCLUSION: 1. Postoperative left total knee replacement. No complications identified. Michael De La Garza MD Objective Remarks GENERAL: awake and alert, oriented x 3 SKIN: Warm and dry. EYES: No scleral icterus. No injection or drainage. NECK: Supple, trachea midline. No JVD or lymphadenopathy. CARDIOVASCULAR: Regular rate and rhythm without murmurs, gallops, or rubs. RESPIRATORY: Breath sounds equal bilaterally. No accessory muscle use. GASTROINTESTINAL: Abdomen soft, non-tender, nondistended. bilateral groin area- raw surface, mild erythema MUSCULOSKELETAL: No cyanosis, or edema. left knee- post op dressing in place Procedures left total knee arthroplasty Date of Insertion: May 09, 2016 Date of Removal: May 11, 2016 A/P Problem List: (1) Diabetes ICD Code: E11.9 Status: Acute (2) Emphysema of lung ICD Code: J43.9 Status: Acute (3) Anemia ICD Code: D64.9 Status: Acute (4) Osteoarthritis of knee ICD Code: M17.9 Status: Acute (5) Total knee replacement status ICD Code: Z96.659 Status: Acute Assessment and Plan Pleasant 75-year-old female with past medical history of diabetes mellitus, morbidly obese with BMI of 41.9, hypertension, also osteoarthritis. Patient today for left total knee arthroplasty due to severe painful osteoarthritic degeneration left knee. Severe OA S/P left total knee arthroplasty pain Management per surgeon Dr Gabriel Mcgrath for DVT ppx per surgeon Dipti salazar. Nystatin/steroids for 5 days. Monitor h/o HSV , continue valtrex. ID consulted for recommendation for both above HTN : continue Olmesartan-Hydrochlorothiazide 40-25 mg daily DM2 continue home meds , monitor BS Depression: continue Fluoxetine 40 Mg daily Chron's disease continue home meds. Follows with Dr Lamar LUJAN as OP CM ff along with DC planning SNF today if arranged- Vishnu Posadas MD May 12, 2016 10:04
[2016-05-12] MEDS ORDERED: NYSTCRE29 TOPICAL (10:13)
[2016-05-12 12:00] VITALS: BP 106/49; PULSE 93; RESP 18; TEMP 96.6; O2SAT 97
[2016-05-22] MEDS ORDERED: TEMA7.5C9 PO (10:39)
[2016-05-22] MEDS ORDERED: ACTO30TA10 PO (10:39)
[2016-05-22] MEDS ORDERED: PANT40TA3 PO (10:39)
[2016-05-22] MEDS ORDERED: ZINC20OI TOPICAL (10:39)
[2016-05-22] MEDS ORDERED: HYDR-3580 PO ×2 (10:39)
[2016-05-22] MEDS ORDERED: DOCU1CAP39 PO (10:39)
[2016-05-22] MEDS ORDERED: MERC50TA PO (10:39)
[2016-05-22] MEDS ORDERED: VALT500T PO (10:39)
[2016-05-22] MEDS ORDERED: FLUO20CA4 PO (10:39)
[2016-05-22] MEDS ORDERED: FOLI1TAB4 PO (10:39)
== END 2016-05-12 14:16 | DRG 470 ==
LOC: HSDI 05-09 05:27 → N06B 05-09 12:45
PROVIDERS: ADMIT Surgery; ATTEND Surgery
PROC: 3E0T3CZ (ICD-10-PCS; 2016-05-09)
PROC: 0SRD0J9 Replacement of Left Knee Joint with Synthetic Substitute, Cemented, Open Approach (ICD-10-PCS; principal; 2016-05-09 08:06)
DX: M17.12 Unilateral primary osteoarthritis, left knee (principal); K50.90 Crohn's disease, unspecified, without complications; Z68.41 Body mass index [BMI] 40.0-44.9, adult; E11.9 Type 2 diabetes mellitus without complications; E66.01 Morbid (severe) obesity due to excess calories; B00.9 Herpesviral infection, unspecified; J43.9 Emphysema, unspecified; F32.9 Major depressive disorder, single episode, unspecified; I10 Essential (primary) hypertension; B35.6 Tinea cruris; D64.9 Anemia, unspecified; Z23 Encounter for immunization
CPT/HCPCS: 73560; 80053; 81001; 85014; 85018; 85025; 85610; 85730; 86850; 86900; 86901; 90471; 90732; 94150; C1776; C9290; G0009; J0690; J1100; J1650; J2250; J2270; J2405; J2765; J3010; J3260; J3370; J7050; J7120; L1830

== ENCOUNTER 2016-05-23 12:33 | Inpatient (IN) | payer MEDICARE ==
[2016-05-23] VITALS (18 sets, daily range): BP systolic 107–203; BP diastolic 57–118; PULSE 80–135; RESP 16–28; TEMP 97.9–99.6; O2SAT 96–100
[~2016-05-23] VITALS: Ht 157.5 cm; Wt 99.6 kg
[~2016-05-23 12:33] MED LIST: ACTO30TA10 PO; COLE1PAK PO; COMMODE 3-IN-11 MIS; CPMMACHINE; DOCU1CAP39 PO; ENOX30P SQ; EXEN1INJ SQ; FLUO20CA4 PO; FOLI1TAB4 PO; HYDR-3580 PO; MERC50TA PO; NYSTCRE29 TOPICAL; PANT40TA3 PO; TEMA7.5C9 PO; VALA1TAB PO; VALT500T PO; WALKER WHEELS/F1 MIS; ZINC20OI TOPICAL
[2016-05-23] MEDS ORDERED: SODIUM CHLORIDE 0.9% FLUSH 5 ML FLUSH IVF PRN ×3 (12:45→14:45)
[2016-05-23] MEDS ORDERED: methylPREDNISolone SOD SUCC 125 MG/2 ML VIAL IVP ONE (12:45)
[2016-05-23 13:00] LABS: BASOPHIL # 0.1 TH/MM3 (0-0.2); BASOPHIL % 0.8 % (0.0-2.0); EOSINOPHIL % 0.4 % (0.0-4.0); HEMATOCRIT 35.4 % (35.0-46.0); HEMO FLAGS DIFF FINAL; LYMPH % 15.8 % (9.0-44.0); LYMPHOCYTE # 1.6 TH/MM3 (1.0-4.8); MEAN CELL VOLUME 104.5 FL (80.0-100.0); MEAN CORPUSCULAR HEMOGLOBIN 34.9 PG (27.0-34.0); MEAN CORPUSCULAR HGB CONC 33.4 % (32.0-36.0); MONO % 5.3 % (0.0-8.0); NEUT % 77.7 % (16.0-70.0); PLATELET COUNT 733 TH/MM3 (150-450); RED BLOOD COUNT 3.39 MIL/MM3 (4.00-5.30); RED CELL DISTRIBUTION WIDTH 17.8 % (11.6-17.2); WHITE BLOOD COUNT 10.3 TH/MM3 (4.0-11.0)
[2016-05-23] MEDS: RESP: ALBUTEROL 2.5 MG/IPRATROPIUM 0.5 MG NEB (SCH) INH ×3 (13:00→13:24)
--- NOTE | 2016-05-23 13:21 | PD ---
HPI Chief Complaint: Respiratory Distress Time Seen by Provider: 13:08 Travel History International Travel<30 days: No Contact w/Intl Traveler<30days: No Traveled to known affect area: No History of Present Illness HPI This is a 75-year-old female who recently had a hip replacement was discharged from rehabilitation yesterday who presents to the emergency department in severe respiratory distress. She says that around midnight last night she started to have difficulty breathing and ever since then it's gotten worse. She denies a history of congestive heart failure or COPD. She's not been having any trouble breathing prior to this. She denies any fevers or chills. She has had some chest tightness in the center of her chest. PFSH Past Medical History Arthritis: Yes Asthma: No Autoimmune Disease: No Anxiety: No Depression: No Heart Rhythm Problems: No Cancer: No Cardiovascular Problems: Yes (HTN) High Cholesterol: Yes Chemotherapy: No Chest Pain: No Congestive Heart Failure: No COPD: No Cerebrovascular Accident: No Diabetes: Yes Patient Takes Glucophage: No Endocrine: No Genitourinary: No Hepatitis: No Hiatal Hernia: No Immune Disorder: No Musculoskeletal: Yes (arthritis / left ankle fx rtk/ltk / left hand surgery) Neurologic: No Psychiatric: No Reproductive: No Respiratory: No Migraines: No Radiation Therapy: No Seizures: No Sleep Apnea: No Thyroid Disease: No ?: Not Past Surgical History Abdominal Surgery: Yes (Cholestectomy) AICD: No Arteriovenous Shunt: No Body Medical Devices: n/a Cardiac Surgery: No Ear Surgery: No Endocrine Surgery: No Eye Surgery: No Genitourinary Surgery: No Gynecologic Surgery: No Insulin Pump: No Joint Replacement: Yes (LTK) Oral Surgery: No Pacemaker: No Thoracic Surgery: No Social History Alcohol Use: No Tobacco Use: No Substance Use: No Allergies-Medications (Allergen,Severity, Reaction): Coded Allergies: No Known Allergies (Verified , 05/23/16) Reported Meds & Prescriptions Reported Meds & Active Scripts Active Zinc Oxide (Zinc Oxide (Topical)) 20 % Oin 1 Applic TOPICAL BID PRN 10 Days Valtrex (Valacyclovir HCl) 500 Mg Tab 1,000 Mg PO DAILY 10 Days Restoril (Temazepam) 7.5 Mg Cap 7.5 Mg PO HS PRN 10 Days Actos (Pioglitazone HCl) 30 Mg Tab 30 Mg PO DAILY 10 Days Pantoprazole (Pantoprazole Sodium) 40 Mg Tab 40 Mg PO Q12HR 10 Days Mercaptopurine 50 Mg Tab 100 Mg PO DAILY 10 Days Hydrocodone-Acetaminophen 7.5-325 mg Tab 2 Tab PO Q6H PRN Hydrocodone-Acetaminophen 7.5-325 mg Tab 1 Tab PO Q4H PRN Folate (Folic Acid) 1 Mg Tab 1 Mg PO DAILY 30 Days Fluoxetine (Fluoxetine HCl) 20 Mg Cap 20 Mg PO DAILY 30 Days Dok (Docusate Sodium) 100 Mg Cap 100 Mg PO BID PRN 10 Days Nystatin-Triamcinolone 100,000-0.1 Unit/Gm Cream 1 Applic TOPICAL Q12HR 5 Days Reported Lovenox Inj (Enoxaparin Sodium) 30 Mg/0.3 Ml Syr 30 Mg SQ BID Valacyclovir (Valacyclovir HCl) 1 Gm Tab 1,000 Mg PO DAILY Welchol (Colesevelam HCl) 3.75 Gm Pkt 3.75 Gm PO DAILY Bydureon Pen Inj (Exenatide) 2 Mg Pfpen 2 Mg SQ Q7D Review of Systems ROS Limitations: Clinical Condition Physical Exam Narrative GENERAL: Unwell-appearing, severe respiratory distress SKIN: Diaphoretic well healing incision left lower extremity HEAD: Atraumatic. Normocephalic. EYES: Pupils equal and round. No injection or drainage. ENT: Moist mucous membranes NECK: Trachea midline. CARDIOVASCULAR: Tachycardic. No murmur appreciated. 2+ bilateral lower extremity edema. RESPIRATORY: Diffuse wheezing bilaterally with poor air movement, accessory muscle use, speaking 1-2 words GASTROINTESTINAL: Abdomen soft, non-tender, nondistended. MUSCULOSKELETAL: No obvious deformities. NEUROLOGICAL: Awake and alert. No obvious cranial nerve deficits. Moving all extremities. PSYCHIATRIC: Appropriate mood and affect; insight and judgment normal. Data Data Last Documented VS Vital Signs Date Time Temp Pulse Resp B/P Pulse Ox O2 Delivery O2 Flow Rate FiO2 05/23/16 14:10 99 100 05/23/16 14:06 103 28 151/58 BiPAP 05/23/16 12:53 97.9 05/23/16 12:44 15 Orders Complete Blood Count With Diff (05/23/16 12:39) Comprehensive Metabolic Panel (05/23/16 12:39) B-Type Natriuretic Peptide (05/23/16 12:39) D-Dimer (05/23/16 12:39) Act Partial Throm Time (Ptt) (05/23/16 12:39) Prothrombin Time / Inr (Pt) (05/23/16 12:39) Magnesium (Mg) (05/23/16 12:39) Ckmb (Isoenzyme) Profile (05/23/16 12:39) Troponin I (05/23/16 12:39) Arterial Blood Gas (Abg) (05/23/16 12:39) Iv Access Insert/Monitor (05/23/16 12:39) Electrocardiogram (05/23/16 12:39) Ecg Monitoring (05/23/16 12:39) Oximetry (05/23/16 12:39) Oxygen Administration (05/23/16 12:39) Chest, Single Ap (05/23/16 12:39) Sodium Chloride 0.9% Flush (Ns Flush) (05/23/16 12:45) Methylprednisolone So Succ Inj (Solumedr (05/23/16 12:45) Albuterol-Ipratropium Neb (Duoneb Neb) (05/23/16 12:45) Resp Bipap / Cpap Non Invas Vt (05/23/16 12:39) Arterial Blood Gas (Abg) (05/23/16 ) Furosemide Inj (Lasix Inj) (05/23/16 13:30) Nitroglycerin-Dextrose Inj (Nitroglyceri (05/23/16 13:30) Diltiazem Inj (Cardizem Inj) (05/23/16 13:30) CKMB (05/23/16 12:45) CKMB% (05/23/16 12:45) Ct Pulmonary Angiogram (05/23/16 ) Electrocardiogram (05/23/16 13:42) Troponin I (05/23/16 13:42) Heparin Infusion LUKE.Q1H (05/23/16 13:43) Heparin Inj (Heparin Inj) (05/23/16 13:45) Heparin-D5w Inj (Heparin-D5w Inj) (05/23/16 13:45) Cbc No Diff, Includes Plts (05/26/16 06:00) Act Partial Throm Time (Ptt) (05/23/16 20:43) Occult Blood (Hemoccult) Stool (05/23/16 13:43) Succinylcholine Inj (Quelicin Inj) (05/23/16 14:00) Etomidate Inj (Amidate Inj) (05/23/16 14:00) Chest, Single Ap (05/23/16 ) Propofol 1000 Mg/100 Ml Inj (Diprivan 10 (05/23/16 14:21) Hydromorphone Pf Inj (Dilaudid Pf Inj) (05/23/16 14:30) Etomidate Inj (Amidate Inj) (05/23/16 14:30) Succinylcholine Inj (Quelicin Inj) (05/23/16 14:30) Sodium Chloride 0.9% Flush (Ns Flush) (05/23/16 14:30) Restraints Non-Violent LUKE.Q3H (05/23/16 14:21) Insert Ng Tube (05/23/16 14:21) Labs Laboratory Tests Test 05/23/16 05/23/16 05/23/16 05/23/16 12:45 13:30 13:40 13:49 White Blood Count 10.3 TH/MM3 Red Blood Count 3.39 MIL/MM3 Hemoglobin 11.8 GM/DL Hematocrit 35.4 % Mean Corpuscular Volume 104.5 FL Mean Corpuscular Hemoglobin 34.9 PG Mean Corpuscular Hemoglobin 33.4 % Concent Red Cell Distribution Width 17.8 % Platelet Count 733 TH/MM3 Mean Platelet Volume 8.4 FL Neutrophils (%) (Auto) 77.7 % Lymphocytes (%) (Auto) 15.8 % Monocytes (%) (Auto) 5.3 % Eosinophils (%) (Auto) 0.4 % Basophils (%) (Auto) 0.8 % Neutrophils # (Auto) 8.0 TH/MM3 Lymphocytes # (Auto) 1.6 TH/MM3 Monocytes # (Auto) 0.5 TH/MM3 Eosinophils # (Auto) 0.0 TH/MM3 Basophils # (Auto) 0.1 TH/MM3 CBC Comment DIFF FINAL Differential Comment Sodium Level 141 MEQ/L Potassium Level 4.7 MEQ/L Chloride Level 104 MEQ/L Carbon Dioxide Level 26.6 MEQ/L Anion Gap 10 MEQ/L Blood Urea Nitrogen 18 MG/DL Creatinine 1.08 MG/DL Estimat Glomerular Filtration 50 ML/MIN Rate Random Glucose 160 MG/DL Calcium Level 9.0 MG/DL Magnesium Level 2.1 MG/DL Total Bilirubin 0.7 MG/DL Aspartate Amino Transf 66 U/L (AST/SGOT) Alanine Aminotransferase 55 U/L (ALT/SGPT) Alkaline Phosphatase 106 U/L Total Creatine Kinase 174 U/L Creatine Kinase MB 4.2 NG/ML Troponin I 0.78 NG/ML 0.81 NG/ML B-Type Natriuretic Peptide 1574 PG/ML Total Protein 7.6 GM/DL Albumin 2.9 GM/DL Blood Gas Puncture Site LT RADIAL Blood Gas Patient Temperature 98.6 Blood Gas HCO3 22 mmol/L Blood Gas Base Excess -3.6 mmol/L Blood Gas Oxygen Saturation 96 % Arterial Blood pH 7.28 Arterial Blood Partial 48 mmHg Pressure CO2 Arterial Blood Partial 224 mmHG Pressure O2 Arterial Blood Oxygen Content 15.6 Vol % Arterial Blood 2.0 % Carboxyhemoglobin Arterial Blood Methemoglobin 1.6 % Blood Gas Hemoglobin 11.2 G/DL Oxygen Delivery Device BiPAP Blood Gas Ventilator Setting IPAP 12 EPAP 5 Blood Gas Inspired Oxygen 80 % Prothrombin Time 11.0 SEC Prothromb Time International 1.0 RATIO Ratio Activated Partial 22.0 SEC Thromboplast Time D-Dimer Quantitative (PE/DVT) 6.10 MG/L FEU [facility] Medical Decision Making Medical Screen Exam Complete: Yes Emergency Medical Condition: Yes Interpretation(s) EKG: Narrow complex tachycardia No leukocytosis Macrocytosis Thrombocytosis Electrolytes are reassuring Troponin is 0.78 BNP is 1574 ABG: Respiratory acidosis D-dimer is 6 Differential Diagnosis pulmonary embolism, congestive heart failure, myocardial infarction, COPD exacerbation, pneumonia Narrative Course This is a 75-year-old female who recently had a hip replacement who presents to the emergency department with severe shortness of breath. On arrival the patient was in severe respiratory distress. She was placed on BiPAP. Labs were obtained which demonstrate an elevated troponin of 0.7. Patient was placed on heparin. Chest x-ray demonstrated pulmonary congestion. She was initially treated with serial DuoNeb's and steroids, subsequently with chest x- ray findings she was given Lasix, started on a nitroglycerin infusion and given a dose of diltiazem for her heart rate. She continued to deteriorate with increased work of breathing. Decision was made to intubate the patient. Patient was intubated without complication. CT demonstrates edema with no pulmonary embolus. Patient will be admitted to the intensive care unit for further management. Critical Care Narrative Aggregate critical care time was 70 minutes. Time to perform other separately billable procedures was not included in the critical care time. My time did not include minutes spent treating any other patients simultaneously or on activities that did not directly contribute to the patient's treatment. The services I provided to this patient were to treat and/or prevent clinically significant deterioration that could result in: Disability, I provided critical care services requiring my management, as noted below: Chart data review, documentation time, medication orders and management, vital sign assessments/reviewing monitor data, ordering and reviewing lab tests, ordering and interpreting/reviewing x-rays and diagnostic studies, care of the patient and discussion of the patient with the admitting physicians. Procedures Procedure Narrative After the risks and benefits were discussed the following procedure was performed: INTUBATION: The patient was put in optimal position for the procedure. Rapid sequence intubation was initiated by me using 30 milligrams of etomidate IV and 120 milligrams of succinylcholine IV. The patient was intubated with a 7.5 cuffed endotracheal tube. Tube placement was confirmed by visualization of the tube and balloon passing through the cords, capnometry and subsequent chest x- ray. Breath sounds were equal and well aerated bilaterally postintubation. No breath sounds over stomach. Patient tolerated procedure well. Physician Communication Physician Communication Discussed with Dr. De La O Diagnosis Primary Impression: Pulmonary edema Qualified Code: J81.0 - Acute pulmonary edema Admitting Information Admitting Physician Requests: Admit Elvira Zhou MD May 23, 2016 13:20
[2016-05-23 13:29] LABS: ALKALINE PHOSPHATASE 106 U/L (45-117); ALT (GPT) 55 U/L (10-53); ANION GAP 10 MEQ/L (5-15); AST (GOT) 66 U/L (15-37); BICARBONATE 26.6 MEQ/L (21.0-32.0); BLOOD UREA NITROGEN 18 MG/DL (7-18); CHLORIDE 104 MEQ/L (98-107); CREATINE KINASE 174 U/L (26-192); GLOMERULAR FILTRATION RATE 50 ML/MIN (>89); MAGNESIUM 2.1 MG/DL (1.5-2.5); SODIUM (NA) 141 MEQ/L (136-145); TOTAL BILIRUBIN ADULT 0.7 MG/DL (0.2-1.0)
[2016-05-23] MEDS ORDERED: NITROGLYCERIN-DEXTROSE INJ 250 ML IV ONE (13:30)
[2016-05-23] MEDS ORDERED: DILTIAZEM HCL 25 MG/5 ML VIAL IV ONE (13:30)
[2016-05-23] MEDS ORDERED: FUROSEMIDE 40 MG/4 ML VIAL IV PUSH ONE ×2 (13:30→17:00)
[2016-05-23 13:31] LABS: POTASSIUM 4.7 MEQ/L (3.5-5.1)
[2016-05-23] MEDS ORDERED: HEPARIN SODIUM - IV 10,000 UNITS/10 ML VIAL IV ONE (13:45)
[2016-05-23 13:47] LABS: CKMB 4.2 NG/ML (0.5-3.6)
[2016-05-23] MEDS ORDERED: ETOMIDATE 20 MG/10 ML VIAL IV PUSH ONE (14:00)
[2016-05-23] MEDS ORDERED: SUCCINYLCHOLINE CHLORIDE 200 MG/10 ML VIAL IV PUSH ONE (14:00)
[2016-05-23] MEDS ORDERED: PROPOFOL 1000 MG/100 ML INJ 100 ML ONE (14:21)
[2016-05-23] MEDS ORDERED: SUCCINYLCHOLINE CHLORIDE 200 MG/10 ML VIAL IVP ONE (14:30)
[2016-05-23] MEDS ORDERED: ETOMIDATE 20 MG/10 ML VIAL IVP ONE (14:30)
[2016-05-23] MEDS ORDERED: HYDROmorphone HCL PF 1 MG/ML VIAL IV PUSH ONE (14:30)
[2016-05-23 14:43] LABS: BLOOD GAS BASE EXCESS -3.6 mmol/L (-2-2); BLOOD GAS HCO3 22 mmol/L (22-26); BLOOD GAS METHEMOGLOBIN 1.6 % (0-2); BLOOD GAS O2 HGB SATURATION 96 % (90-100); BLOOD GAS OXYGEN CONTENT 15.6 Vol % (12.0-20.0); BLOOD GAS PCO2 48 mmHg (38-42); BLOOD GAS PO2 224 mmHG (61-120); BLOOD GAS TOTAL HGB 11.2 G/DL (12.0-16.0); CRITICAL VALUE YES; TEMP CORR TO 98.6
[2016-05-23 14:44] LABS: DRAW SITE LT RADIAL; FIO2 80 %; NUMBER OF ARTERIAL PUNCTURES 1; OXYGEN DEVICE BiPAP; STAT YES; ULNAR PULSE Y; VENT SETTINGS IPAP 12 EPAP 5
[2016-05-23] MEDS ORDERED: CHLORHEXIDINE GLUCONATE 2 % 1 PACK (2 CLOTHS) TOP PRN (14:45)
[2016-05-23] MEDS ORDERED: ASPIRIN 300 MG SUPP RECTAL ONE (14:45)
[2016-05-23] MEDS ORDERED: MISCELLANEOUS NURSING INFORMATION XX SCH (14:45)
[2016-05-23] MEDS ORDERED: PROPOFOL 1000 MG/100 ML INJ 100 ML IV SCH (14:45)
[2016-05-23] MEDS ORDERED: fentaNYL DRIP 250 ML IV SCH (14:45)
--- NOTE | 2016-05-23 15:04 | RADRPT ---
EXAM DATE/TIME: 05/23/2016 13:13 [place] COMPARISON: No previous studies available for comparison. INDICATIONS : Shortness of breath. MEDICAL HISTORY : Hypertension. Hypercholesterolemia. Crohn's disease. Diabetes. SURGICAL HISTORY : Cholecystectomy. ENCOUNTER: Initial ACUITY: 1 day PAIN SCORE: 5/10 LOCATION: Bilateral chest FINDINGS: The heart size is enlarged. The lungs demonstrate diffuse mixed interstitial and alveolar consolidat ion. A significant effusion is not seen. CONCLUSION: Diffuse pulmonary edema. Jairon Vega MD on May 23, 2016 at 14:56 Board Certified Radiologist. This report was verified electronically.
[2016-05-23] MEDS: HEPARIN-D5W INJ 250 ML IV SCH (15:22)
[2016-05-23] MEDS: RESP: ALBUTEROL 2.5 MG/IPRATROPIUM 0.5 MG NEB (SCH) NEB ×2 (15:24→23:32)
--- NOTE | 2016-05-23 15:34 | HHI.HP ---
[facility] Service Critical Care Medicine Primary Care Physician Unknown Admission Diagnosis respiratory failure Diagnosis: (1) Acute hypoxemic respiratory failure Diagnosis: Principal (2) NSTEMI (non-ST elevated myocardial infarction) Diagnosis: Principal (3) Pulmonary edema Diagnosis: Principal (4) Diabetes Diagnosis: Secondary (5) Emphysema of lung Diagnosis: Secondary (6) Anemia Diagnosis: Secondary (7) Crohns disease Diagnosis: Secondary Chief Complaint: Acute hpoxemic respiratory failure Travel History International Travel<30 Days: No Contact w/Intl Traveler <30 Da: No Traveled to Known Affected Are: No Sepsis Criteria SIRS Criteria (2 or more): Heart rate over 90, RR > 20 or PaCO2 < 32 History of Present Illness Sweta Dawson is a 75 year old female, with history of Osteoarthritis, morbid obesity, anemia, depression, DM2, Crohns Disease, and emphysema, who underwent left total knee replacement by Dr. Rios on 05/09/16. Subsequently was discharged to rehabilitation on 05/12/16 and home yesterday 05/22/16. She presented to the emergency department in severe respiratory distress which started around midnight last night. (Patient was discharged home on Lovenox 30 mg subcutaneous twice a day for DVT prophylaxis) She was profoundly hypoxemic in the ED, chest x-ray showed pulmonary edema. Patient was placed on BiPAP but due to inadequate improvement patient was intubated by Dr. Zhou. Initial troponin was 0.78 without acute EKG changes, BNP was 1574. With troponin elevation and recent knee surgery patient was empirically placed on IV heparin and 1 dose of aspirin was given. A CT angiogram is pending at this time. However PE seems unlikely given the chest x-ray finding of pulmonary edema and troponin elevation, and patient was getting DVT prophylaxis-hypoxemic respiratory failure most likely secondary to cardiogenic pulmonary edema I evaluated the patient in the ED. She is intubated but wakes up easily follows commands. Patient had been started on scheduled aspirin and beta blockers and statins, cardiology consulted and have also added Lasix 20 mg 1 and every 12. 2-D echo is pending at this time. I have updated the at the bedside Review of Systems ROS Limitations: Intubated Past Family Social History Allergies: Coded Allergies: No Known Allergies (Verified , 05/23/16) Past Medical History Osteoarthritis Morbid obesity Anemia, depression, DM2 Crohns Disease Emphysema Past Surgical History Cholecystectomy Left total knee replacement by Dr. Rios on 05/09/16 Right total knee replacement October 2015 Carpal tunnel release Reported Medications Zinc Oxide (Zinc Oxide (Topical)) 20 % Oin 1 Applic TOPICAL BID PRN 10 Days Valtrex (Valacyclovir HCl) 500 Mg Tab 1,000 Mg PO DAILY 10 Days Restoril (Temazepam) 7.5 Mg Cap 7.5 Mg PO HS PRN 10 Days Actos (Pioglitazone HCl) 30 Mg Tab 30 Mg PO DAILY 10 Days Pantoprazole (Pantoprazole Sodium) 40 Mg Tab 40 Mg PO Q12HR 10 Days Mercaptopurine 50 Mg Tab 100 Mg PO DAILY 10 Days Hydrocodone-Acetaminophen 7.5-325 mg Tab 2 Tab PO Q6H PRN Hydrocodone-Acetaminophen 7.5-325 mg Tab 1 Tab PO Q4H PRN Folate (Folic Acid) 1 Mg Tab 1 Mg PO DAILY 30 Days Fluoxetine (Fluoxetine HCl) 20 Mg Cap 20 Mg PO DAILY 30 Days Dok (Docusate Sodium) 100 Mg Cap 100 Mg PO BID PRN 10 Days Nystatin-Triamcinolone 100,000-0.1 Unit/Gm Cream 1 Applic TOPICAL Q12HR 5 Days Lovenox Inj (Enoxaparin Sodium) 30 Mg/0.3 Ml Syr 30 Mg SQ BID Valacyclovir (Valacyclovir HCl) 1 Gm Tab 1,000 Mg PO DAILY Welchol (Colesevelam HCl) 3.75 Gm Pkt 3.75 Gm PO DAILY Bydureon Pen Inj (Exenatide) 2 Mg Pfpen 2 Mg SQ Q7D Active Ordered Medications Reviewed Family History Reviewed Social History Quit smoking 7 years ago Physical Exam Vital Signs Vital Signs Date Time Temp Pulse Resp B/P Pulse Ox O2 Delivery O2 Flow Rate FiO2 05/23/16 15:11 92 19 176/100 100 Ventilator 05/23/16 14:06 103 28 151/58 100 BiPAP 05/23/16 13:51 100 16 187/118 100 BiPAP 05/23/16 13:38 97 80 05/23/16 13:07 130 28 165/79 100 BiPAP 05/23/16 12:54 134 28 203/97 100 BiPAP 05/23/16 12:53 97.9 100 BiPAP 05/23/16 12:53 100 BiPAP 05/23/16 12:44 135 28 186/79 97 BiPAP 05/23/16 12:44 Non-Rebreather 15 05/23/16 12:41 133 28 186/79 96 Physical Exam GENERAL: Acutely ill morbidly obese female who is intubated sedated with propofol SKIN: Well healing incision left lower extremity HEAD: Atraumatic. Normocephalic. EYES: Pupils equal and round. No injection or drainage. ENT: Moist mucous membranes. Orotracheally intubated NECK: Trachea midline. CARDIOVASCULAR: S1-S2 normal. No murmur appreciated. 2+ bilateral lower extremity edema. RESPIRATORY: Diffuse wheezing bilaterally with poor air movement, bibasilar coarse crackles GASTROINTESTINAL: Abdomen soft, non-tender, nondistended. Obese MUSCULOSKELETAL: No obvious deformities. 2+ pedal edema well healing left incision NEUROLOGICAL: Intubated sedated. But wakes up easily and follows commands. No focal deficits Laboratory Laboratory Tests Test 05/23/16 05/23/16 05/23/16 05/23/16 12:45 13:30 13:40 13:49 White Blood Count 10.3 Red Blood Count 3.39 Hemoglobin 11.8 Hematocrit 35.4 Mean Corpuscular Volume 104.5 Mean Corpuscular Hemoglobin 34.9 Mean Corpuscular Hemoglobin 33.4 Concent Red Cell Distribution Width 17.8 Platelet Count 733 Mean Platelet Volume 8.4 Neutrophils (%) (Auto) 77.7 Lymphocytes (%) (Auto) 15.8 Monocytes (%) (Auto) 5.3 Eosinophils (%) (Auto) 0.4 Basophils (%) (Auto) 0.8 Neutrophils # (Auto) 8.0 Lymphocytes # (Auto) 1.6 Monocytes # (Auto) 0.5 Eosinophils # (Auto) 0.0 Basophils # (Auto) 0.1 CBC Comment DIFF FINAL Differential Comment Sodium Level 141 Potassium Level 4.7 Chloride Level 104 Carbon Dioxide Level 26.6 Anion Gap 10 Blood Urea Nitrogen 18 Creatinine 1.08 Estimat Glomerular Filtration 50 Rate Random Glucose 160 Calcium Level 9.0 Magnesium Level 2.1 Total Bilirubin 0.7 Aspartate Amino Transf 66 (AST/SGOT) Alanine Aminotransferase 55 (ALT/SGPT) Alkaline Phosphatase 106 Total Creatine Kinase 174 Creatine Kinase MB 4.2 Troponin I 0.78 0.81 B-Type Natriuretic Peptide 1574 Total Protein 7.6 Albumin 2.9 Blood Gas Puncture Site LT RADIAL Blood Gas Patient Temperature 98.6 Blood Gas HCO3 22 Blood Gas Base Excess -3.6 Blood Gas Oxygen Saturation 96 Arterial Blood pH 7.28 Arterial Blood Partial 48 Pressure CO2 Arterial Blood Partial 224 Pressure O2 Arterial Blood Oxygen Content 15.6 Arterial Blood 2.0 Carboxyhemoglobin Arterial Blood Methemoglobin 1.6 Blood Gas Hemoglobin 11.2 Oxygen Delivery Device BiPAP Blood Gas Ventilator Setting IPAP 12 EPAP 5 Blood Gas Inspired Oxygen 80 Prothrombin Time 11.0 Prothromb Time International 1.0 Ratio Activated Partial 22.0 Thromboplast Time D-Dimer Quantitative (PE/DVT) 6.10 Result Diagram: 05/23/16 1245 05/23/16 1245 Imaging Chest x-ray shows pulmonary edema Assessment and Plan Problem List: (1) Acute hypoxemic respiratory failure ICD Code: J96.01 Status: Acute (2) Pulmonary edema ICD Code: J81.1 Status: Acute (3) NSTEMI (non-ST elevated myocardial infarction) ICD Code: I21.4 Status: Acute (4) COPD with acute exacerbation ICD Code: J44.1 Status: Acute (5) Probable healthcare associated pneumonia Status: Acute (6) Crohns disease ICD Code: K50.90 Status: Chronic (7) Diabetes ICD Code: E11.9 Status: Chronic (8) Emphysema of lung ICD Code: J43.9 Status: Chronic (9) Anemia ICD Code: D64.9 Status: Chronic (10) Osteoarthritis of knee ICD Code: M17.9 Status: Chronic Assessment and Plan NEURO: -Propofol for sedation and ventilator synchrony -When necessary fentanyl for pain -Start sedation vacation in 24 hours RESP: Acute hypoxemic respiratory failure Pulmonary edema Acute COPD exacerbation Probable pneumonia -Intubated and placed on mechanical ventilation ACV 16/550/10/70% -IV Solu-Medrol 60 every 12, DuoNeb every 6 hours scheduled and when necessary -Ventilator bundle, head of bed elevation 30 -Broad spectrum antibiotics -CT pulmonary angiogram to rule out acute pulmonary embolus CV: NSTEMI Acute pulmonary edema /congestive heart failure -Cardiology consulted, 2d echo pending. -Currently on IV heparin, received aspirin. Continue aspirin placed on Coreg and statins -Trend cardiac enzymes -IV Lasix 20 mg 1 and 20 twice a day GI: -Nothing by mouth, IV Protonix : -Monitor renal function closely. Tsang catheter. IV Lasix as above ID: Possible healthcare associated pneumonia -Check sputum culture, IV vancomycin x 1 dose. Cefepime 2 gm IV q8 HEME: -Monitor CBC, CMP, coags -Monitor closely for bleeding when on IV heparin ENDO: Hyperglycemia Type 2 diabetes -Sliding-scale insulin, electrolyte replacement protocol PROPH: -Bilateral lower extremity SCDs. iv Heparin. IV Protonix LINES: -Utilize peripheral IVs, central line if needed CC time 70 min Code Status Full Problem Qualifiers (1) Pulmonary edema: Qualified Code: J81.0 - Acute pulmonary edema (2) Diabetes: (3) Anemia: Bambi De La O MD May 23, 2016 15:34
--- NOTE | 2016-05-23 15:59 | RADRPT ---
EXAM DATE/TIME: 05/23/2016 14:18 [facility] COMPARISON: CHEST SINGLE AP, May 23, 2016, 13:13. INDICATIONS : Post Intubation. MEDICAL HISTORY : None. SURGICAL HISTORY : left knee 2 weeks ago. ENCOUNTER: Initial ACUITY: 1 day PAIN SCORE: Non-responsive. LOCATION: Bilateral chest FINDINGS: A single view of the chest demonstrates extensive prominent interstitial markings throughout both yamini gs., Right greater than left. Findings are characteristic of significant pulmonary edema. No associat ed effusion. Interval placement of an endotracheal tube with the tip appropriately seated position ap proximately 2.5-3 cm above the carley.. CONCLUSION: 1. Pulmonary edema/CHF, unchanged. 2. Interval placement of an endotracheal tube with the tip appropriately positioned above the carley. Doe Broussard MD on May 23, 2016 at 15:53 Board Certified Radiologist. This report was verified electronically.
[2016-05-23] MEDS ORDERED: DOCUSATE SODIUM 100 MG CAP PO PRN (16:15)
[2016-05-23] MEDS ORDERED: IOHEXOL 350 MG/ML 10 ML VIAL (for RAD DIAG) IV ONE (17:14)
[2016-05-23] MEDS ORDERED: SODIUM PHOSPHATE INJ 30 MMOL in SODIUM CHLOR 0.9% 250 ML INJ 240 ML IV PRN (17:15)
[2016-05-23] MEDS ORDERED: MAGNESIUM SULFATE INJ 4 GM in SODIUM CHLORIDE 0.9% INJ 92 ML IV PRN (17:15)
[2016-05-23] MEDS ORDERED: MAGNESIUM SULFATE INJ 2 GM in SODIUM CHLORIDE 0.9% INJ 96 ML IV PRN (17:15)
[2016-05-23] MEDS ORDERED: POTASSIUM CHLOR 40 MEQ PREMIX 100 ML IV PRN ×2 (17:15)
[2016-05-23] MEDS ORDERED: POTASSIUM CHLOR 20 MEQ PREMIX 100 ML IV PRN ×2 (17:15)
[2016-05-23] MEDS ORDERED: POTASSIUM PHOSPHATE MONOBASIC 500 MG TAB PO PRN (17:15)
[2016-05-23] MEDS ORDERED: MAGNESIUM OXIDE 400 MG TAB PO PRN (17:15)
[2016-05-23] MEDS ORDERED: POTASSIUM PHOSPHATE MONOBASIC 500 MG TAB PO/TUBE PRN (17:15)
[2016-05-23] MEDS ORDERED: POTASSIUM CL 40 MEQ/30 ML LIQ UDC PO/TUBE PRN ×2 (17:15)
[2016-05-23] MEDS ORDERED: POTASSIUM PHOSPHATE INJ 30 MMOL in SODIUM CHLOR 0.9% 250 ML INJ 250 ML IV PRN (17:15)
--- NOTE | 2016-05-23 17:39 | RADRPT ---
EXAM DATE/TIME: 05/23/2016 16:59 [facility] COMPARISON: CHEST SINGLE AP, May 23, 2016, 14:18. INDICATIONS : Shortness of breath and respiratory distress. IV CONTRAST: 70 cc Omnipaque 350 (iohexol) IV RADIATION DOSE: 43.14 CTDIvol (mGy) MEDICAL HISTORY : Hypertension. Irritable bowel syndrome. Diabetes mellitus type 1. SURGICAL HISTORY : Cholecystectomy. ENCOUNTER: Initial ACUITY: 1 day PAIN SCALE: Non-responsive LOCATION: Chest TECHNIQUE: Volumetric scanning of the chest was performed using a pulmonary embolism protocol MIP images were reconstructed. Using automated exposure control and adjustment of the mA and/or kV acco rding to patient size, radiation dose was kept as low as reasonably achievable to obtain optimal diag nostic quality images. FINDINGS: No pulmonary embolus is identified. There are mild bilateral pleural effusions. There is ground glass opacity seen throughout the lungs. There is some dependent atelectasis or consolidation seen in the posterior lower lobes bilaterally. Significant areas of adenopathy are not seen. There is an ET tube, and an NG tube in place. There a re some mild coronary artery calcifications present. CONCLUSION: 1. No pulmonary embolus. 2. Ground glass opacity throughout the lungs which may represent processes such as edema. 3. Mild bilateral pleural effusions. Jairon Vega MD on May 23, 2016 at 17:21 Board Certified Radiologist. This report was verified electronically.
[2016-05-23] MEDS: PROPOFOL 1000 MG/100 ML INJ 100 ML IV SCH (17:59)
[2016-05-23] MEDS ORDERED: VANCOMYCIN INJ 1,250 MG in SODIUM CHLOR 0.9% 250 ML INJ 250 ML IV ONE (18:00)
[2016-05-23] MEDS: CEFEPIME INJ 2,000 MG in SODIUM CHLORIDE 0.9% INJ 100 ML IV SCH (18:00)
[2016-05-23] MEDS ORDERED: DEXTROSE 50% IN WATER 50 ML VIAL(D50) IV PUSH PRN (19:30)
[2016-05-23] MEDS ORDERED: GLUCAGON 1 MG/ML VIAL OTHER PRN (19:30)
[2016-05-23] MEDS ORDERED: CHLORHEXIDINE 0.12% (ORAL KIT) 15 ML CUP MT SCH (20:00)
[2016-05-23] MEDS: INSULIN ASPART SUPPLEMENTAL SCALE SQ SCH (20:47)
[2016-05-23] MEDS: CARVEDILOL 6.25 MG TAB PO SCH (20:48)
[2016-05-23] MEDS: methylPREDNISolone SOD SUCC 125 MG/2 ML VIAL IV PUSH SCH (20:48)
[2016-05-23] MEDS: SODIUM CHLORIDE 0.9% FLUSH 5 ML FLUSH IVF SCH (20:48)
[2016-05-23] MEDS: ATORVASTATIN 10 MG TAB PO SCH (20:48)
[2016-05-23] MEDS: FUROSEMIDE 20 MG/2 ML VIAL IV PUSH SCH (20:48)
[2016-05-23] MEDS: CHLORHEXIDINE 0.12% (ORAL KIT) 15 ML CUP MT SCH (20:50)
[2016-05-23] MEDS: NYSTATIN/TRIAMCINOLONE CREAM 15 GM TOPICAL SCH (21:00)
--- NOTE | 2016-05-23 21:02 | EC ---
Study Study Date:05/23/2016 STUDY CONCLUSIONS SUMMARY - Left ventricle: The cavity size was normal. Wall thickness was normal. Systolic function was mildly reduced. The estimated ejection fraction was in the range of 45% to 50%. Wall motion was normal; there were no regional wall motion abnormalities. - Mitral valve: Mild to moderate regurgitation. - Pulmonary arteries: PA peak pressure: 47mm Hg (S). If LV function is below 40, please consider prescribing an ACEI or ARB or document rationale for non-use. PROCEDURE DATA STUDY STATUS: Elective. Procedure: Transthoracic echocardiography. Image quality was good. Scanning was performed from the parasternal, apical, and subcostal acoustic windows. Study completion: The patient tolerated the procedure well. Transthoracic echocardiography. M-mode, complete 2D, complete spectral Doppler, and color Doppler. Patient status: Inpatient. CARDIAC ANATOMY LEFT VENTRICLE: The cavity size was normal. Wall thickness was normal. Systolic function was mildly reduced. The estimated ejection fraction was in the range of 45% to 50%. Wall motion was normal; there were no regional wall motion abnormalities. AORTIC VALVE: Trileaflet; normal thickness leaflets. Doppler: Transvalvular velocity was within the normal range. There was no stenosis. No regurgitation. AORTA: Aortic root: The aortic root was normal in size. MITRAL VALVE: Structurally normal valve. Doppler: Transvalvular velocity was within the normal range. There was no evidence for stenosis. Mild to moderate regurgitation. Peak gradient: 8mm Hg (D). LEFT ATRIUM: The atrium was normal in size. RIGHT VENTRICLE: The cavity size was normal. Wall thickness was normal. PULMONIC VALVE: Doppler: Transvalvular velocity was within the normal range. There was no evidence for stenosis. No regurgitation. TRICUSPID VALVE: Structurally normal valve. Doppler: Transvalvular velocity was within the normal range. Trace regurgitation. PULMONARY ARTERY: The main pulmonary artery was normal-sized. Systolic pressure was within the normal range. RIGHT ATRIUM: The atrium was normal in size. PERICARDIUM: There was no pericardial effusion. SYSTEMIC VEINS: Inferior vena cava: The vessel was normal in size. BASIC MEASUREMENTS ADULT Normal Left ventricle LV internal dimension, ED, chordal level, *42.1 mm 43-52 PLAX LV internal dimension, ES, chordal level, 33.8 mm 23-38 PLAX Fractional shortening, chordal level, PLAX *20 % >29 LV posterior wall thickness, ED 9.29 mm IVS/LVPW ratio, ED 1.04 <1.3 Ventricular septum Septal thickness, ED 9.68 mm Aortic valve Leaflet separation 20 mm 15-26 Left atrium Anterior-posterior dimension 36 mm Right ventricle RV internal dimension, ED, PLAX 26 mm 19-38 BASIC MEASUREMENTS ADULT Normal Aortic valve Leaflet separation 20 mm 15-26 Aorta Root diameter, ED 32 mm 20-37 DOPPLER MEASUREMENTS ADULT Normal Main pulmonary artery Pressure, S *47 mm Hg =30 Mitral valve Peak E-wave velocity 140 cm/s Peak A-wave velocity 187 cm/s Peak gradient, D 8 mm Hg Peak E/A ratio 0.7 Maximal regurgitant velocity 422 cm/s Tricuspid valve Regurgitant peak velocity 303 cm/s Peak RV-RA gradient, S 37 mm Hg Maximal regurgitant velocity 303 cm/s Systemic veins Estimated CVP 10 mm Hg Right ventricle RV pressure, S *47 mm Hg <30 LEGEND: Mean values are shown as u=mean value. Asterisk (*) villa values outside specified normal range. Prepared and signed by Lionel Johansen [id number]
[2016-05-23 21:36] LABS: CKMB 7.4 NG/ML (0.5-3.6)
[2016-05-24] VITALS (18 sets, daily range): BP systolic 91–122; BP diastolic 46–57; PULSE 85–98; RESP 16–25; TEMP 97.7–99.5; O2SAT 10–100
[2016-05-24] MEDS: PROPOFOL 1000 MG/100 ML INJ 100 ML IV SCH ×2 (00:03→04:04)
[2016-05-24] MEDS: INSULIN ASPART SUPPLEMENTAL SCALE SQ SCH ×7 (00:03→23:40)
[2016-05-24 01:27] LABS: APTT (PATIENT) 34.5 SEC (24.3-30.1)
[2016-05-24 01:39] LABS: MAGNESIUM 1.7 MG/DL (1.5-2.5)
[2016-05-24] MEDS: RESP: ALBUTEROL 2.5 MG/IPRATROPIUM 0.5 MG NEB (SCH) NEB ×4 (03:18→20:52)
[2016-05-24] MEDS: CHLORHEXIDINE GLUCONATE 2 % 1 PACK (2 CLOTHS) TOP SCH (03:37)
[2016-05-24] MEDS: CEFEPIME INJ 2,000 MG in SODIUM CHLORIDE 0.9% INJ 100 ML IV SCH ×2 (04:05→15:53)
[2016-05-24 05:41] LABS: AUTOMATED NEUTROPHIL # 8.2 TH/MM3 (1.8-7.7); BASOPHIL % 0.1 % (0.0-2.0); HEMATOCRIT 27.4 % (35.0-46.0); HEMO FLAGS DIFF FINAL; LYMPH % 3.7 % (9.0-44.0); LYMPHOCYTE # 0.3 TH/MM3 (1.0-4.8); MEAN CELL VOLUME 101.1 FL (80.0-100.0); MEAN CORPUSCULAR HEMOGLOBIN 34.4 PG (27.0-34.0); MEAN CORPUSCULAR HGB CONC 34.1 % (32.0-36.0); MONO % 2.6 % (0.0-8.0); NEUT % 93.6 % (16.0-70.0); PLATELET COUNT 483 TH/MM3 (150-450); RED BLOOD COUNT 2.71 MIL/MM3 (4.00-5.30); RED CELL DISTRIBUTION WIDTH 17.3 % (11.6-17.2); WHITE BLOOD COUNT 8.8 TH/MM3 (4.0-11.0)
[2016-05-24] MEDS: HEPARIN-D5W INJ 250 ML IV SCH (06:09)
[2016-05-24 06:42] LABS: ALKALINE PHOSPHATASE 80 U/L (45-117); ALT (GPT) 65 U/L (10-53); ANION GAP 12 MEQ/L (5-15); AST (GOT) 56 U/L (15-37); BICARBONATE 27.3 MEQ/L (21.0-32.0); BLOOD UREA NITROGEN 23 MG/DL (7-18); CHLORIDE 103 MEQ/L (98-107); GLOMERULAR FILTRATION RATE 47 ML/MIN (>89); POTASSIUM 3.3 MEQ/L (3.5-5.1); SODIUM (NA) 142 MEQ/L (136-145); TOTAL BILIRUBIN ADULT 0.5 MG/DL (0.2-1.0)
--- NOTE | 2016-05-24 07:55 | MB ---
cc: PAVITHRA MEZA MD DATE OF CONSULTATION: 05/24/2016 REASON FOR CONSULTATION [id number] NC. HISTORY OF PRESENT ILLNESS Ms. Sweta Dawson is a 75-year-old female who recently underwent a total knee replacement for severe osteoarthritis. She subsequently was discharged to rehab and discharged on home on 05/22/2016. She presented to the emergency room in severe respiratory distress and was found to be profoundly hypoxemic. The patient was placed on BiPAP and subsequently intubated. Consequently she is not able to give much of a history at this point. She does nod her head that she has had progressive shortness of breath. She denies any chest pain prior. PAST MEDICAL HISTORY 1. Morbid obesity. 2. Anemia. 3. Depression. 4. Diabetes. 5. Crohn's. 6. Emphysema. PAST SURGICAL HISTORY 1. Cholecystectomy. 2. Carpal tunnel release. 3. Right total knee replacement in 2015. 4. Left total knee replacement in May 2016. MEDICATIONS Outpatient medications reportedly include: 1. Valtrex. 2. Restoril. 3. Actos. 4. Pantoprazole. 5. Mercaptopurine. 6. Hydrocodone. 7. Folate. 8. Fluoxetine. 9. Docusate. 10. Lovenox. 11. Valacyclovir. 12. Welchol. FAMILY HISTORY Unable. REVIEW OF SYSTEMS Unable. SOCIAL HISTORY The patient is a former smoker. ALLERGIES No known drug allergies. PHYSICAL EXAMINATION VITAL SIGNS: Initial vitals were 133, 28, 186/79. Currently her vitals are 99.3, 92, 16, 115/55. GENERAL: A well-appearing female in no apparent distress on the ventilator. NECK: Free from JVD. LUNGS: Clear to auscultation. CARDIOVASCULAR: Normal S1 and S2. I did not appreciate any murmurs, rubs or gallops. ABDOMEN: Soft. EXTREMITIES: Trace to 1+ edema. ECHOCARDIOGRAM Echocardiogram shows an EF of 45-50% without any focal wall motion abnormalities. Her PA pressure is 47 and there was mild to moderate mitral regurgitation. LABORATORY Lab values show initial hemoglobin of 11.8 which has decreased to 9.3 this morning. Platelets 483. Serial troponins are 0.81/1.28/1.63, with a BNP 1574. Initial blood gas pH was 7.28. EKG EKG shows sinus tachycardia with nonspecific ST-T wave changes. IMPRESSIONS/RECOMMENDATIONS 1. [id number] NC: This is likely a secondary NC. The patient certainly does have multiple CV risk factors. Her presenting complaints were progressive shortness of breath. She was also quite hypoxic and a pH of 7.28 prior to intubation. This certainly would cause some myocardial strain. At this point as well she is fairly anemic. Thus at this point I do not think the risks/benefits are favorable for further evaluation in the label printer. I do agree with continued medical management at this time. After she is extubated we can reevaluate for further ischemic work-up. Of note the patient did have a normal nuclear stress test in August 2012 with an EF of 68%. 2. Cardiomyopathy: The patient's echo was read out at 45-50% for the EF. This as well could be either related to an ischemic insult or secondary to from the profound hypoxemia. 3. Respiratory failure: This will be managed by the primary team. 4. Anemia. Pavithra Meza M.D. ROBERTO/ZOILA /7:14 AM /7:33 AM
[2016-05-24 07:59] LABS: HDL CHOLESTEROL 58.4 MG/DL (40.0-60.0)
[2016-05-24] MEDS ORDERED: FUROSEMIDE 20 MG/2 ML VIAL IV PUSH ONE (08:15)
[2016-05-24] MEDS: POTASSIUM CL 40 MEQ/30 ML LIQ UDC PO SCH (08:23)
[2016-05-24] MEDS: CHLORHEXIDINE 0.12% (ORAL KIT) 15 ML CUP MT SCH ×2 (08:23→19:20)
[2016-05-24] MEDS: CARVEDILOL 6.25 MG TAB PO SCH ×2 (08:23→20:20)
[2016-05-24] MEDS: ASPIRIN EC 81 MG TABEC PO SCH (08:23)
[2016-05-24] MEDS: PANTOPRAZOLE SODIUM 40 MG VIAL IV SCH (08:23)
[2016-05-24] MEDS: NYSTATIN/TRIAMCINOLONE CREAM 15 GM TOPICAL SCH ×2 (08:23→20:22)
[2016-05-24] MEDS: FUROSEMIDE 20 MG/2 ML VIAL IV PUSH SCH ×2 (08:24→17:57)
[2016-05-24] MEDS: methylPREDNISolone SOD SUCC 125 MG/2 ML VIAL IV PUSH SCH ×2 (08:24→20:21)
[2016-05-24] MEDS: SODIUM CHLORIDE 0.9% FLUSH 5 ML FLUSH IVF SCH ×2 (08:25→20:21)
[2016-05-24] MEDS ORDERED: MERCAPTOPURINE 50 MG TAB PO SCH (09:00)
--- NOTE | 2016-05-24 09:15 | RADRPT ---
EXAM DATE/TIME: 05/24/2016 08:22 [facility] COMPARISON: CHEST SINGLE AP, May 23, 2016, 14:18. INDICATIONS : Evaluate heart and lungs. MEDICAL HISTORY : Respiratory Failure. SURGICAL HISTORY : None. ENCOUNTER: Subsequent ACUITY: 3 days PAIN SCORE: Non-responsive. LOCATION: chest FINDINGS: A single view of the chest demonstrates bilateral interstitial infiltrates which are mildly improved on today's examination. No significant pleural effusions. No pneumothorax. ET tube in good position. NG tube in the stomach. Heart size stable. Bony structures stable. CONCLUSION: Mild improvement in the bilateral interstitial infiltrates. Cristi Naranjo MD on May 24, 2016 at 9:11 Board Certified Radiologist. This report was verified electronically.
--- NOTE | 2016-05-24 10:44 | HHI.CCPN ---
Subjective Remarks/Hospital Course Sweta Dawson is a 75 year old female, with history of Osteoarthritis, morbid obesity, anemia, depression, DM2, Crohns Disease, and emphysema, who underwent left total knee replacement by Dr. Rios on 05/09/16. Subsequently was discharged to rehabilitation on 05/12/16 and home yesterday 05/22/16. She presented to the emergency department in severe respiratory distress which started around midnight last night. (Patient was discharged home on Lovenox 30 mg subcutaneous twice a day for DVT prophylaxis) She was profoundly hypoxemic in the ED, chest x-ray showed pulmonary edema. Patient was placed on BiPAP but due to inadequate improvement patient was intubated by Dr. Zhou. Initial troponin was 0.78 without acute EKG changes, BNP was 1574. With troponin elevation and recent knee surgery patient was empirically placed on IV heparin and 1 dose of aspirin was given. A CT angiogram is pending at this time. However PE seems unlikely given the chest x-ray finding of pulmonary edema and troponin elevation, and patient was getting DVT prophylaxis-hypoxemic respiratory failure most likely secondary to cardiogenic pulmonary edema I evaluated the patient in the ED. She is intubated but wakes up easily follows commands. Patient had been started on scheduled aspirin and beta blockers and statins, cardiology consulted and have also added Lasix 20 mg 1 and every 12. 2-D echo is pending at this time. I have updated the at the bedside SUBJECTIVE 05/24/15: Remains intubated sedated, but wakes up easily follows commands. Chest x-ray shows some interval improvement. Patient cardiology consult-further cardiac workup after extubation. 2-D echo shows EF 45-50%, mild -to-moderate MR Objective Vital Signs Date Time Temp Pulse Resp B/P Pulse Ox O2 Delivery O2 Flow Rate FiO2 05/24/16 10:00 97 05/24/16 08:44 10 35 05/24/16 08:00 99.0 18 122/57 05/23/16 16:12 Ventilator 05/23/16 12:44 15 Intake and Output 05/23/16 05/23/16 05/24/16 08:00 16:00 00:00 Intake Total 627 ml Output Total 1375 ml Balance -748 ml Result Diagram: 05/24/16 0449 05/24/16 0449 Other Results Laboratory Tests Test 05/23/16 13:30 Blood Gas Puncture Site LT RADIAL Blood Gas Patient Temperature 98.6 Blood Gas HCO3 22 mmol/L (22-26) Blood Gas Base Excess -3.6 mmol/L (-2-2) Blood Gas Oxygen Saturation 96 % (90-100) Arterial Blood pH 7.28 (7.380-7.420) Arterial Blood Partial 48 mmHg (38-42) Pressure CO2 Arterial Blood Partial 224 mmHG Pressure O2 (61-120) Arterial Blood Oxygen Content 15.6 Vol % (12.0-20.0) Arterial Blood 2.0 % (0-4) Carboxyhemoglobin Arterial Blood Methemoglobin 1.6 % (0-2) Blood Gas Hemoglobin 11.2 G/DL (12.0-16.0) Oxygen Delivery Device BiPAP Blood Gas Ventilator Setting IPAP 12 EPAP 5 Blood Gas Inspired Oxygen 80 % Imaging Chest x-ray shows pulmonary edema Objective Remarks GENERAL: Acutely ill morbidly obese female who is intubated sedated with propofol SKIN: Well healing incision left lower extremity HEAD: Atraumatic. Normocephalic. EYES: Pupils equal and round. No injection or drainage. ENT: Moist mucous membranes. Orotracheally intubated NECK: Trachea midline. CARDIOVASCULAR: S1-S2 normal. No murmur appreciated. 2+ bilateral lower extremity edema. RESPIRATORY: Mild wheezing bilaterally, bibasilar coarse crackles improving GASTROINTESTINAL: Abdomen soft, non-tender, nondistended. Obese MUSCULOSKELETAL: No obvious deformities. 2+ pedal edema well healing left incision NEUROLOGICAL: Intubated sedated. But wakes up easily and follows commands. No focal deficits Urinary Catheter: Yes Assessment to: Continue A/P Problem List: (1) Acute hypoxemic respiratory failure ICD Code: J96.01 Status: Acute (2) Pulmonary edema ICD Code: J81.1 Status: Acute (3) NSTEMI (non-ST elevated myocardial infarction) ICD Code: I21.4 Status: Acute (4) COPD with acute exacerbation ICD Code: J44.1 Status: Acute (5) Probable healthcare associated pneumonia Status: Acute (6) Crohns disease ICD Code: K50.90 Status: Chronic (7) Diabetes ICD Code: E11.9 Status: Chronic (8) Emphysema of lung ICD Code: J43.9 Status: Chronic (9) Anemia ICD Code: D64.9 Status: Chronic (10) Osteoarthritis of knee ICD Code: M17.9 Status: Chronic Assessment and Plan NEURO: -Propofol for sedation and ventilator synchrony -When necessary fentanyl for pain -Start sedation vacation RESP: Acute hypoxemic respiratory failure Pulmonary edema Acute COPD exacerbation Probable pneumonia -Intubated and placed on mechanical ventilation ACV 16/550/10/40% -Start CPAP trials for possible extubation -IV Solu-Medrol 60 every 12, DuoNeb every 6 hours scheduled and when necessary -Ventilator bundle, head of bed elevation 30 -Broad spectrum antibiotics -CT pulmonary angiogram to rule out acute pulmonary embolus CV: NSTEMI Acute pulmonary edema /congestive heart failure Cardiomyopathy probably ischemic -Cardiology Dr. Dillon 2d echo EF 45-50% no wall motion abnormalities. Mild to moderate MR -Currently on IV heparin, received aspirin. Continue aspirin Coreg and statins -Trend cardiac enzymes -IV Lasix 20 mg 1 additional dose, continue 20 mg twice a day GI: -Nothing by mouth, IV Protonix : -Monitor renal function closely. Tsang catheter. IV Lasix as above ID: Possible healthcare associated pneumonia -F/U sputum culture, IV vancomycin x 1 dose 05/23. Continue Cefepime 2 gm IV q8 HEME: -Monitor CBC, CMP, coags -Monitor closely for bleeding when on IV heparin ENDO: Hyperglycemia Type 2 diabetes -Sliding-scale insulin, electrolyte replacement protocol PROPH: -Bilateral lower extremity SCDs. iv Heparin. IV Protonix LINES: -Utilize peripheral IVs, central line if needed CC time 40 min Problem Qualifiers (1) Pulmonary edema: Qualified Code: J81.0 - Acute pulmonary edema (2) Diabetes: (3) Anemia: Bambi De La O MD May 24, 2016 10:44
[2016-05-24 11:00] LABS: APTT (PATIENT) 44.9 SEC (24.3-30.1)
[2016-05-24] MEDS ORDERED: HEPARIN-D5W INJ 250 ML IV SCH (11:00)
[2016-05-24] MEDS: COLESEVELAM HCL 625 MG TAB PO SCH (12:13)
[2016-05-24] MEDS: valACYclovir HCL 500 MG TAB PO SCH (12:13)
[2016-05-24 14:59] LABS: HEMATOCRIT 27.9 % (35.0-46.0); MEAN CELL VOLUME 104.7 FL (80.0-100.0); MEAN CORPUSCULAR HEMOGLOBIN 35.2 PG (27.0-34.0); MEAN CORPUSCULAR HGB CONC 33.6 % (32.0-36.0); PLATELET COUNT 519 TH/MM3 (150-450); RED BLOOD COUNT 2.66 MIL/MM3 (4.00-5.30); RED CELL DISTRIBUTION WIDTH 17.6 % (11.6-17.2); REVIEW FLAG FINAL; WHITE BLOOD COUNT 14.1 TH/MM3 (4.0-11.0)
[2016-05-24 15:29] LABS: APTT (PATIENT) 36.5 SEC (24.3-30.1); PROTHROMBIN TIME - PATIENT 10.7 SEC (9.8-11.6)
[2016-05-24 18:45] LABS: APTT (PATIENT) 35.1 SEC (24.3-30.1)
[2016-05-24] MEDS: ATORVASTATIN 10 MG TAB PO SCH ×2 (20:21→20:38)
--- NOTE | 2016-05-24 20:40 | EKG ---
Date Performed: 05/23/2016 Time Performed: 13:44:50 PTAGE: 75 years EKG: Sinus rhythm WITH OCCASIONAL SUPRAVENTRICULAR PREMATURE COMPLEXES NONSPECIFIC ST & T-WAVE ABNORMALITY BORDERLINE ECG PREVIOUS TRACING : 05/23/2016 12.52 Compared to the previous tracing, rate slower DOCTOR: Jaleesa Cee Interpretating Date/Time 05/24/2016 20:39:44
--- NOTE | 2016-05-24 20:46 | EKG ---
Date Performed: 05/23/2016 Time Performed: 12:52:10 PTAGE: 75 years EKG: Sinus tachycardia Poor R wave progression Slight IVCD ABNORMAL ECG PREVIOUS TRACING : 09/10/2007 08.52 Compared to prior tracing no significant change DOCTOR: Jaleesa Cee Interpretating Date/Time 05/24/2016 20:45:19
[2016-05-24] MEDS ORDERED: ZOLPIDEM TARTRATE 10 MG TAB PO ONE (21:00)
[2016-05-25] VITALS (15 sets, daily range): BP systolic 99–123; BP diastolic 49–59; PULSE 74–100; RESP 12–22; TEMP 97.5–98.4; O2SAT 94–100
[2016-05-25] MEDS: CHLORHEXIDINE GLUCONATE 2 % 1 PACK (2 CLOTHS) TOP SCH (03:05)
[2016-05-25] MEDS: RESP: ALBUTEROL 2.5 MG/IPRATROPIUM 0.5 MG NEB (SCH) NEB ×4 (04:00→22:36)
[2016-05-25] MEDS: CEFEPIME INJ 2,000 MG in SODIUM CHLORIDE 0.9% INJ 100 ML IV SCH ×2 (04:49→16:53)
[2016-05-25] MEDS: INSULIN ASPART SUPPLEMENTAL SCALE SQ SCH ×5 (04:50→20:00)
--- NOTE | 2016-05-25 06:10 | RADRPT ---
EXAM DATE/TIME: 05/25/2016 04:20 [place] COMPARISON: CHEST SINGLE AP, May 24, 2016, 8:22. INDICATIONS : Shortness of breath, possible pulmonary disease. MEDICAL HISTORY : Respiratory failure SURGICAL HISTORY : None. ENCOUNTER: Subsequent ACUITY: 4 - 6 days PAIN SCORE: Non-responsive. LOCATION: Bilateral chest FINDINGS: There has been interval extubation and removal of nasogastric tube. Continued improvement in aeration with decrease in confluence of bilateral infiltrates. Cardiac contours are stable. CONCLUSION: Extubation and improving aeration. Jairon Blount MD on May 25, 2016 at 6:08 Board Certified Radiologist. This report was verified electronically.
[2016-05-25 07:19] LABS: AUTOMATED NEUTROPHIL # 11.6 TH/MM3 (1.8-7.7); BASOPHIL % 0.1 % (0.0-2.0); HEMATOCRIT 28.9 % (35.0-46.0); HEMO FLAGS DIFF FINAL; LYMPH % 3.1 % (9.0-44.0); LYMPHOCYTE # 0.4 TH/MM3 (1.0-4.8); MEAN CELL VOLUME 101.3 FL (80.0-100.0); MEAN CORPUSCULAR HEMOGLOBIN 34.4 PG (27.0-34.0); MONO % 2.9 % (0.0-8.0); NEUT % 93.9 % (16.0-70.0); PLATELET COUNT 539 TH/MM3 (150-450); RED BLOOD COUNT 2.86 MIL/MM3 (4.00-5.30); RED CELL DISTRIBUTION WIDTH 17.1 % (11.6-17.2); WHITE BLOOD COUNT 12.4 TH/MM3 (4.0-11.0)
[2016-05-25 07:21] LABS: APTT (PATIENT) 36.6 SEC (24.3-30.1)
[2016-05-25 07:51] LABS: ANION GAP 10 MEQ/L (5-15)
--- NOTE | 2016-05-25 07:51 | PD.CARD.PN ---
Subjective Subjective Remarks Pt wants to go home Objective Medications Current Medications Medications (Trade) Dose Ordered Sig/Cr Route Start Time Stop Time Status Last Admin (NS Flush) 2 ml UNSCH PRN IVF 05/23/16 14:45 (NS Flush) 2 ml BID IVF 05/23/16 21:00 05/24/16 20:21 (Protonix Inj) 40 mg DAILY IV 05/24/16 09:00 05/24/16 08:23 Miscellaneous Information 1 Q361D XX 05/23/16 14:45 05/23/16 03:00 (Chlorhexidine 2% Cloth) 3 pack Taper DAILY@04 TOP 05/24/16 04:00 05/20/17 03:59 05/25/16 03:05 Chlorhexidine Gluconate 3 pack 3 pack UNSCH PRN TOP 05/23/16 14:45 (Diprivan 1000 Mg/100ml Inj) 100 ml @ 0 mls/hr TITRATE IV 05/23/16 14:45 05/24/16 04:04 (Colace) 100 mg BID PRN PO 05/23/16 16:15 (Purinethol) 100 mg DAILY PO 05/24/16 09:00 Hold (Mycolog Ii Cream) 1 applic Q12HR TOPICAL 05/23/16 21:00 05/24/16 08:23 (Valtrex) 1,000 mg DAILY PO 05/24/16 09:00 05/24/16 12:13 Colesevelam HCl 3750 mg 3,750 mg DAILY PO 05/24/16 09:00 05/24/16 12:13 (Maxipime Inj/NS Inj) 100 ml @ 200 mls/hr Q12H IV 05/23/16 17:00 05/25/16 04:49 (SoluMEDROL INJ) 60 mg Q12HR IV PUSH 05/23/16 21:00 05/24/16 20:21 (Lasix Inj) 20 mg BID@09,18 IV PUSH 05/23/16 18:00 05/24/16 17:57 (Ecotrin Ec) 81 mg DAILY PO 05/24/16 09:00 05/24/16 08:23 (Coreg) 6.25 mg Q12HR PO 05/23/16 21:00 05/24/16 08:23 (Lipitor) 10 mg HS PO 05/23/16 21:00 05/23/16 20:48 Insulin Aspart 1 1 Q4HR SQ 05/23/16 20:00 05/25/16 04:50 Potassium Chloride 100 ml @ 50 mls/hr Q2H PRN IV 05/23/16 17:15 (KCl 20 Meq Premix Inj) 100 ml @ 50 mls/hr Q2H PRN IV 05/23/16 17:15 Potassium Chloride 40 meq 40 meq UNSCH PRN PO/TUBE 05/23/16 17:15 Potassium Chloride 100 ml @ 25 mls/hr UNSCH PRN IV 05/23/16 17:15 Potassium Chloride 100 ml @ 50 mls/hr Q2H PRN IV 05/23/16 17:15 (Magnesium Sulfate Inj/NS Inj) 100 ml @ 50 mls/hr UNSCH PRN IV 05/23/16 17:15 Magnesium Oxide 800 mg 800 mg UNSCH PRN PO 05/23/16 17:15 (Magnesium Sulfate Inj/NS Inj) 100 ml @ 50 mls/hr UNSCH PRN IV 05/23/16 17:15 Potassium Phosphate 2000 mg 2,000 mg Q4H PRN PO 05/23/16 17:15 (Sodium Phosphate Inj/NS 250 ml Inj) 250 ml @ 42 mls/hr UNSCH PRN IV 05/23/16 17:15 (KCl 40 Meq/30 ml Liq) 40 meq UNSCH PRN PO/TUBE 05/23/16 17:15 Potassium Phosphate 2000 mg 2,000 mg UNSCH PRN PO/TUBE 05/23/16 17:15 (Potassium Phosphate Inj/NS 250 ml Inj) 260 ml @ 42 mls/hr UNSCH PRN IV 05/23/16 17:15 (Peridex 0.12% Liq) 15 ml BID@08,20 MT 05/23/16 20:00 05/24/16 08:23 (D50w (Vial) Inj) 25 ml UNSCH PRN IV PUSH 05/23/16 19:30 (Glucagon Inj) 1 mg UNSCH PRN OTHER 05/23/16 19:30 Potassium Chloride 40 meq 40 meq DAILY PO 05/24/16 09:00 05/24/16 08:23 (Heparin-D5W Inj) 250 ml @ 0 mls/hr TITRATE IV 05/24/16 11:00 05/24/16 21:37 (Reading 7.5-325 Mg) 1 tab Q4H PRN PO 05/24/16 17:30 Vital Signs / I&O Vital Signs Date Time Temp Pulse Resp B/P Pulse Ox O2 Delivery O2 Flow Rate FiO2 05/25/16 06:00 86 05/25/16 04:00 97.5 100 19 123/57 97 05/25/16 04:00 100 05/25/16 02:00 86 05/25/16 00:00 92 05/25/16 00:00 97.8 92 20 99/49 94 05/24/16 22:00 95 05/24/16 20:51 97 Nasal Cannula 2.00 05/24/16 20:00 89 05/24/16 20:00 98.2 89 25 91/48 94 05/24/16 18:00 91 05/24/16 16:00 89 21 91/46 95 05/24/16 16:00 89 05/24/16 15:53 97.7 05/24/16 14:00 93 05/24/16 12:00 98.2 88 18 116/57 95 05/24/16 12:00 96 05/24/16 10:00 97 05/24/16 09:42 96 Nasal Cannula 32 05/24/16 08:44 10 35 05/24/16 08:00 90 05/24/16 08:00 99.0 98 18 122/57 100 05/24/16 08:00 35 I/O 05/24/16 05/24/16 05/24/16 05/25/16 05/25/16 05/25/16 07:00 15:00 23:00 07:00 15:00 23:00 Intake Total 468 ml 590 ml 207 ml 94 ml Output Total 1025 ml 1400 ml 1125 ml 300 ml Balance -557 ml -810 ml -918 ml -206 ml Intake Oral 0 ml 360 ml IV Total 468 ml 230 ml 207 ml 94 ml Other 0 ml Output Urine Total 950 ml 1400 ml 1125 ml 300 ml Gastric Drainage Total 75 ml # Bowel Movements 0 1 Physical Exam GENERAL: Well developed, well nourished. No acute distress. HEENT: Jugular venous pressure is normal. CHEST: Lungs clear to auscultation bilaterally. Unlabored respiratory effort. CARDIAC: Regular rate and rhythm without S3, S4, or murmur. ABDOMEN: Soft, nontender, no hepatosplenomegaly. Bowel sounds present. EXTREMITIES: No clubbing, cyanosis, or edema. Laboratory Laboratory Tests Test 05/24/16 05/24/16 05/24/16 05/25/16 10:05 14:26 17:40 00:42 Activated Partial 44.9 SEC 36.5 SEC 35.1 SEC 35.0 SEC Thromboplast Time White Blood Count 14.1 TH/MM3 Red Blood Count 2.66 MIL/MM3 Hemoglobin 9.4 GM/DL Hematocrit 27.9 % Mean Corpuscular Volume 104.7 FL Mean Corpuscular Hemoglobin 35.2 PG Mean Corpuscular Hemoglobin 33.6 % Concent Red Cell Distribution Width 17.6 % Platelet Count 519 TH/MM3 Mean Platelet Volume 8.4 FL Prothrombin Time 10.7 SEC Prothromb Time International 1.0 RATIO Ratio Test 05/25/16 06:34 White Blood Count 12.4 TH/MM3 Red Blood Count 2.86 MIL/MM3 Hemoglobin 9.8 GM/DL Hematocrit 28.9 % Mean Corpuscular Volume 101.3 FL Mean Corpuscular Hemoglobin 34.4 PG Mean Corpuscular Hemoglobin 34.0 % Concent Red Cell Distribution Width 17.1 % Platelet Count 539 TH/MM3 Mean Platelet Volume 8.6 FL Neutrophils (%) (Auto) 93.9 % Lymphocytes (%) (Auto) 3.1 % Monocytes (%) (Auto) 2.9 % Eosinophils (%) (Auto) 0.0 % Basophils (%) (Auto) 0.1 % Neutrophils # (Auto) 11.6 TH/MM3 Lymphocytes # (Auto) 0.4 TH/MM3 Monocytes # (Auto) 0.4 TH/MM3 Eosinophils # (Auto) 0.0 TH/MM3 Basophils # (Auto) 0.0 TH/MM3 CBC Comment DIFF FINAL Differential Comment Activated Partial 36.6 SEC Thromboplast Time Imaging Last 72 hours Impressions Chest X-Ray 05/25/16 0600 Signed Impressions: Service Date/Time: May 04:20 - CONCLUSION: Extubation and improving aeration. Jairon Blount MD Chest X-Ray 05/24/16 0000 Signed Impressions: Service Date/Time: Tuesday, May 24, 2016 08:22 - CONCLUSION: Mild improvement in the bilateral interstitial infiltrates. Cristi J. Siragusa, MD Chest X-Ray 05/23/16 1239 Signed Impressions: Service Date/Time: Monday, May 23, 2016 13:13 - CONCLUSION: Diffuse pulmonary edema. Jairon Vega MD Chest X-Ray 05/23/16 0000 Signed Impressions: Service Date/Time: Monday, May 23, 2016 14:18 - CONCLUSION: 1. Pulmonary edema/CHF, unchanged. 2. Interval placement of an endotracheal tube with the tip appropriately positioned above the carley. Doe Broussard MD CT Angiography 05/23/16 0000 Signed Impressions: Service Date/Time: Monday, May 23, 2016 16:59 - CONCLUSION: 1. No pulmonary embolus. 2. Ground glass opacity throughout the lungs which may represent processes such as edema. 3. Mild bilateral pleural effusions. Jairon Vega MD Assessment and Plan Assessment and Plan NSTEMI- likely secondary to hypoxia, ECHO EF 45-50% - further evaluation for ischemia discussed nuc vs CTA vs radial cath discussed =>she requested coronary CTA, ok if Cr stable today CHF- acute diastolic dysfunction- likely secondary to HTN -BP controlled -limit fluid and salt, change to PO lasix Resp Failure- resolved off vent, pneumonia? per CCM Anemia- certainly contributes her dyspnea Knee surg- ok for knee machine from CV perspective Brooke Dillon MD May 25, 2016 07:51
[2016-05-25 07:52] LABS: ALKALINE PHOSPHATASE 89 U/L (45-117); ALT (GPT) 62 U/L (10-53); BICARBONATE 28.8 MEQ/L (21.0-32.0); BLOOD UREA NITROGEN 29 MG/DL (7-18); CHLORIDE 99 MEQ/L (98-107); GLOMERULAR FILTRATION RATE 49 ML/MIN (>89); SODIUM (NA) 138 MEQ/L (136-145); TOTAL BILIRUBIN ADULT 0.4 MG/DL (0.2-1.0)
[2016-05-25 07:53] LABS: AST (GOT) 39 U/L (15-37); POTASSIUM 3.8 MEQ/L (3.5-5.1)
[2016-05-25] MEDS: COLESEVELAM HCL 625 MG TAB PO SCH (08:49)
[2016-05-25] MEDS: POTASSIUM CL 40 MEQ/30 ML LIQ UDC PO SCH (08:49)
[2016-05-25] MEDS: SODIUM CHLORIDE 0.9% FLUSH 5 ML FLUSH IVF SCH ×2 (08:50→21:00)
[2016-05-25] MEDS: PANTOPRAZOLE SODIUM 40 MG VIAL IV SCH (08:50)
[2016-05-25] MEDS: FUROSEMIDE 20 MG TAB PO SCH ×2 (08:50→16:54)
[2016-05-25] MEDS: methylPREDNISolone SOD SUCC 125 MG/2 ML VIAL IV PUSH SCH (08:50)
[2016-05-25] MEDS: ASPIRIN EC 81 MG TABEC PO SCH (08:50)
[2016-05-25] MEDS: CARVEDILOL 6.25 MG TAB PO SCH ×2 (08:50→21:09)
[2016-05-25] MEDS: NYSTATIN/TRIAMCINOLONE CREAM 15 GM TOPICAL SCH ×2 (08:51→21:00)
[2016-05-25] MEDS: ACETAMINOPHEN/HYDROcodone 325 MG/7.5 MG TAB PO PRN ×2 (08:51→22:20)
[2016-05-25] MEDS: valACYclovir HCL 500 MG TAB PO SCH (08:51)
[2016-05-25] MEDS: CHLORHEXIDINE 0.12% (ORAL KIT) 15 ML CUP MT SCH ×2 (08:52→20:00)
--- NOTE | 2016-05-25 13:19 | HHI.CCPN ---
Subjective Remarks/Hospital Course Sweta Dawson is a 75 year old female, with history of Osteoarthritis, morbid obesity, anemia, depression, DM2, Crohns Disease, and emphysema, who underwent left total knee replacement by Dr. Rios on 05/09/16. Subsequently was discharged to rehabilitation on 05/12/16 and home yesterday 05/22/16. She presented to the emergency department in severe respiratory distress which started around midnight last night. (Patient was discharged home on Lovenox 30 mg subcutaneous twice a day for DVT prophylaxis) She was profoundly hypoxemic in the ED, chest x-ray showed pulmonary edema. Patient was placed on BiPAP but due to inadequate improvement patient was intubated by Dr. Zhou. Initial troponin was 0.78 without acute EKG changes, BNP was 1574. With troponin elevation and recent knee surgery patient was empirically placed on IV heparin and 1 dose of aspirin was given. A CT angiogram is pending at this time. However PE seems unlikely given the chest x-ray finding of pulmonary edema and troponin elevation, and patient was getting DVT prophylaxis-hypoxemic respiratory failure most likely secondary to cardiogenic pulmonary edema I evaluated the patient in the ED. She is intubated but wakes up easily follows commands. Patient had been started on scheduled aspirin and beta blockers and statins, cardiology consulted and have also added Lasix 20 mg 1 and every 12. 2-D echo is pending at this time. I have updated the at the bedside SUBJECTIVE 05/24/15: Remains intubated sedated, but wakes up easily follows commands. Chest x-ray shows some interval improvement. Patient cardiology consult-further cardiac workup after extubation. 2-D echo shows EF 45-50%, mild -to-moderate MR 05/25/16: Extubated yesterday tolerating very well. CHF improving. Dr. Dillon radial cardiac catheterization versus nuclear medicine versus coronary CTA Objective Vital Signs Date Time Temp Pulse Resp B/P Pulse Ox O2 Delivery O2 Flow Rate FiO2 05/25/16 12:00 97 05/25/16 12:00 12 119/59 97 05/25/16 11:36 98.4 05/25/16 09:40 Nasal Cannula 3.00 05/24/16 09:42 32 Intake and Output 05/24/16 05/24/16 05/25/16 08:00 16:00 00:00 Intake Total 468 ml 590 ml 207 ml Output Total 1025 ml 1400 ml 1125 ml Balance -557 ml -810 ml -918 ml Result Diagram: 05/25/16 0634 05/25/16 0634 Other Results Microbiology Date/Time Procedure Status Source Growth 05/24/16 14:00 Stool Occult Blood (CAROLINE) - Final Complete Stool Stool HEMOCCULT POSITIVE Imaging Chest x-ray shows pulmonary edema Objective Remarks GENERAL: Sitting up in chair in no acute distress SKIN: Well healing incision left lower extremity HEAD: Atraumatic. Normocephalic. EYES: Pupils equal and round. No injection or drainage. ENT: Moist mucous membranes. NECK: Trachea midline. CARDIOVASCULAR: S1-S2 normal. No murmur appreciated. 2+ bilateral lower extremity edema. RESPIRATORY: Air entry equal bilaterally no wheezes or crackles GASTROINTESTINAL: Abdomen soft, non-tender, nondistended. Obese MUSCULOSKELETAL: No obvious deformities. 2+ pedal edema well healing left incision NEUROLOGICAL: Alert awake oriented no focal deficits Urinary Catheter: Yes Assessment to: Remove A/P Problem List: (1) Acute hypoxemic respiratory failure ICD Code: J96.01 Status: Acute (2) Pulmonary edema ICD Code: J81.1 Status: Acute (3) NSTEMI (non-ST elevated myocardial infarction) ICD Code: I21.4 Status: Acute (4) COPD with acute exacerbation ICD Code: J44.1 Status: Acute (5) Probable healthcare associated pneumonia Status: Acute (6) Crohns disease ICD Code: K50.90 Status: Chronic (7) Diabetes ICD Code: E11.9 Status: Chronic (8) Emphysema of lung ICD Code: J43.9 Status: Chronic (9) Anemia ICD Code: D64.9 Status: Chronic (10) Osteoarthritis of knee ICD Code: M17.9 Status: Chronic Assessment and Plan NEURO: -Minimize sedation. As needed Lortab for pain. Ambien when necessary daily at bedtime for sleep RESP: Acute hypoxemic respiratory failure-resolved Pulmonary edema Acute COPD exacerbation Probable pneumonia -Extubated 05/24/16 tolerating well -DC Solu-Medrol 60 every 12, start prednisone 20 mg daily for 5 days -DuoNeb every 6 hours scheduled and when necessary -Broad spectrum antibiotics -CT pulmonary angiogram to rule out acute pulmonary embolus CV: NSTEMI Acute pulmonary edema /congestive heart failure Cardiomyopathy probably ischemic -Cardiology Dr. Dillon 2d echo EF 45-50% no wall motion abnormalities. Mild to moderate MR -DC Heparin. Start Lovenox 30 mg sq q12 -Currently on IV heparin, received aspirin. Continue aspirin Coreg and statins -Lasix 20 mg PO BID GI: -Heart healthy diet : -Monitor renal function closely. Tsang catheter. Continue by mouth Lasix ID: Possible healthcare associated pneumonia -F/U sputum culture, IV vancomycin x 1 dose 05/23. Continue Cefepime 2 gm IV q8 HEME: -Monitor CBC, CMP, coags -Monitor closely for bleeding ENDO: Hyperglycemia Type 2 diabetes -Sliding-scale insulin, electrolyte replacement protocol PROPH: -Bilateral lower extremity SCDs. iv Heparin-DC, start Lovenox 30 mg subcutaneous daily . IV Protonix LINES: -Utilize peripheral IVs, central line if needed Level 3. Transfer to Med surg with Tele. [facility] Dr. Arellano to assume care in am Problem Qualifiers (1) Pulmonary edema: Qualified Code: J81.0 - Acute pulmonary edema (2) Diabetes: (3) Anemia: Bambi De La O MD May 25, 2016 13:19 Bambi De La O MD May 25, 2016 13:19
[2016-05-25] MEDS: PANTOPRAZOLE SOD 40 MG DELAYED RELEASE TAB PO SCH (14:00)
[2016-05-25 15:40] LABS: APTT (PATIENT) 38.3 SEC (24.3-30.1)
[2016-05-25] MEDS: ENOXAPARIN SODIUM 30 MG/0.3 ML SYRINGE SQ SCH (16:54)
[2016-05-25] MEDS: ATORVASTATIN 10 MG TAB PO SCH (21:09)
[2016-05-25] MEDS: ZOLPIDEM TARTRATE 10 MG TAB PO PRN (21:09)
[2016-05-26] VITALS (10 sets, daily range): BP systolic 101–119; BP diastolic 51–56; PULSE 79–87; RESP 18–20; TEMP 97.4–98; O2SAT 93–99
[2016-05-26] MEDS: INSULIN ASPART SUPPLEMENTAL SCALE SQ SCH ×6 (03:44→21:01)
[2016-05-26] MEDS: CHLORHEXIDINE GLUCONATE 2 % 1 PACK (2 CLOTHS) TOP SCH (03:58)
[2016-05-26] MEDS: RESP: ALBUTEROL 2.5 MG/IPRATROPIUM 0.5 MG NEB (SCH) NEB ×4 (04:09→21:19)
[2016-05-26] MEDS: CEFEPIME INJ 2,000 MG in SODIUM CHLORIDE 0.9% INJ 100 ML IV SCH ×2 (05:00→17:00)
[2016-05-26] MEDS: ENOXAPARIN SODIUM 30 MG/0.3 ML SYRINGE SQ SCH ×2 (06:00→18:00)
[2016-05-26 06:44] LABS: HEMATOCRIT 28.5 % (35.0-46.0); MEAN CELL VOLUME 102.6 FL (80.0-100.0); MEAN CORPUSCULAR HEMOGLOBIN 34.5 PG (27.0-34.0); MEAN CORPUSCULAR HGB CONC 33.6 % (32.0-36.0); PLATELET COUNT 473 TH/MM3 (150-450); RED BLOOD COUNT 2.78 MIL/MM3 (4.00-5.30); RED CELL DISTRIBUTION WIDTH 17.5 % (11.6-17.2); REVIEW FLAG FINAL; WHITE BLOOD COUNT 9.5 TH/MM3 (4.0-11.0)
--- NOTE | 2016-05-26 07:41 | PD.CARD.PN ---
Subjective Subjective Remarks Pt requests d/c home Objective Vital Signs / I&O Vital Signs Date Time Temp Pulse Resp B/P Pulse Ox O2 Delivery O2 Flow Rate FiO2 05/26/16 04:00 97.6 87 18 119/56 98 05/26/16 00:00 97.6 87 18 119/56 98 05/25/16 22:38 98 Nasal Cannula 2.00 05/25/16 20:20 Nasal Cannula 2.00 05/25/16 20:00 80 05/25/16 20:00 97.5 84 17 115/53 98 05/25/16 18:35 98.3 84 20 108/53 97 05/25/16 18:00 88 05/25/16 16:00 98.0 74 16 104/53 97 05/25/16 16:00 75 05/25/16 14:00 77 05/25/16 12:00 97 05/25/16 12:00 85 12 119/59 97 05/25/16 11:36 98.4 05/25/16 10:00 97 05/25/16 09:53 16 05/25/16 09:40 100 Nasal Cannula 3.00 05/25/16 08:00 97.8 91 22 113/54 98 05/25/16 08:00 84 I/O 05/25/16 05/25/16 05/25/16 05/26/16 05/26/16 05/26/16 07:00 15:00 23:00 07:00 15:00 23:00 Intake Total 94 ml 523 ml 240 ml 100 ml Output Total 300 ml 450 ml Balance -206 ml 73 ml 240 ml 100 ml Intake Oral 360 ml 240 ml 100 ml IV Total 94 ml 163 ml Output Urine Total 300 ml 450 ml # Voids 1 1 # Bowel Movements 1 0 0 Physical Exam GENERAL: Well developed, well nourished. No acute distress. HEENT: Jugular venous pressure is normal. CHEST: Lungs clear to auscultation bilaterally. Unlabored respiratory effort. CARDIAC: Regular rate and rhythm without S3, S4, or murmur. ABDOMEN: Soft, nontender, no hepatosplenomegaly. Bowel sounds present. EXTREMITIES: No clubbing, cyanosis, or edema. Laboratory Laboratory Tests Test 05/25/16 05/26/16 13:35 05:52 Activated Partial 38.3 SEC Thromboplast Time Troponin I 0.80 NG/ML White Blood Count 9.5 TH/MM3 Red Blood Count 2.78 MIL/MM3 Hemoglobin 9.6 GM/DL Hematocrit 28.5 % Mean Corpuscular Volume 102.6 FL Mean Corpuscular Hemoglobin 34.5 PG Mean Corpuscular Hemoglobin 33.6 % Concent Red Cell Distribution Width 17.5 % Platelet Count 473 TH/MM3 Mean Platelet Volume 8.6 FL Assessment and Plan Assessment and Plan NSTEMI- likely secondary to hypoxia, ECHO EF 45-50% - CTA hopefully today -ok for d/c if there is not significant CAD on CTA CHF- acute diastolic dysfunction- likely secondary to HTN -doing well on present meds Resp Failure- resolved off vent, Anemia- certainly contributes her dyspnea Knee surg- Brooke Dillon MD May 26, 2016 07:41
[2016-05-26] MEDS: CHLORHEXIDINE 0.12% (ORAL KIT) 15 ML CUP MT SCH ×2 (08:00→20:00)
[2016-05-26] MEDS: ACETAMINOPHEN/HYDROcodone 325 MG/7.5 MG TAB PO PRN ×3 (08:53→20:57)
[2016-05-26] MEDS: CARVEDILOL 6.25 MG TAB PO SCH ×2 (08:54→20:56)
[2016-05-26] MEDS: ASPIRIN EC 81 MG TABEC PO SCH (08:54)
[2016-05-26] MEDS: FUROSEMIDE 20 MG TAB PO SCH (08:54)
[2016-05-26] MEDS: POTASSIUM CL 40 MEQ/30 ML LIQ UDC PO SCH (08:54)
[2016-05-26] MEDS: PANTOPRAZOLE SOD 40 MG DELAYED RELEASE TAB PO SCH (08:54)
[2016-05-26] MEDS: predniSONE 20 MG TAB PO SCH (08:54)
[2016-05-26] MEDS: SODIUM CHLORIDE 0.9% FLUSH 5 ML FLUSH IVF SCH ×2 (09:00→20:58)
[2016-05-26] MEDS: NYSTATIN/TRIAMCINOLONE CREAM 15 GM TOPICAL SCH ×2 (09:00→21:02)
[2016-05-26] MEDS ORDERED: METOPROLOL TARTRATE 5 MG/5 ML VIAL ONE (10:37)
[2016-05-26] MEDS ORDERED: NITROGLYCERIN 0.4 MG SL 25 TABS/BTL SL ONE (10:38)
[2016-05-26] MEDS: valACYclovir HCL 500 MG TAB PO SCH (10:56)
[2016-05-26] MEDS: COLESEVELAM HCL 625 MG TAB PO SCH (10:56)
--- NOTE | 2016-05-26 11:11 | HHI.PR ---
Subjective Remarks Follow-up non-ST elevation [place]/acute on chronic diastolic CHF 05/26/16-patient seen and examined; currently denies any chest pain or shortness of breath. Vitals stable and she is looking for possible discharge home today. CTA cardiac pending Objective Vitals Vital Signs Date Time Temp Pulse Resp B/P Pulse Ox O2 Delivery O2 Flow Rate FiO2 05/26/16 09:46 98 Nasal Cannula 2.00 05/26/16 08:20 97.4 82 18 116/55 93 05/26/16 04:00 97.6 87 18 119/56 98 05/26/16 00:00 97.6 87 18 119/56 98 05/25/16 22:38 98 Nasal Cannula 2.00 05/25/16 20:20 Nasal Cannula 2.00 05/25/16 20:00 80 05/25/16 20:00 97.5 84 17 115/53 98 05/25/16 18:35 98.3 84 20 108/53 97 05/25/16 18:00 88 05/25/16 16:00 98.0 74 16 104/53 97 05/25/16 16:00 75 05/25/16 14:00 77 05/25/16 12:00 97 05/25/16 12:00 85 12 119/59 97 05/25/16 11:36 98.4 I/O 05/25/16 05/25/16 05/25/16 05/26/16 05/26/16 05/26/16 07:00 15:00 23:00 07:00 15:00 23:00 Intake Total 94 ml 523 ml 240 ml 100 ml Output Total 300 ml 450 ml Balance -206 ml 73 ml 240 ml 100 ml Intake Oral 360 ml 240 ml 100 ml IV Total 94 ml 163 ml Output Urine Total 300 ml 450 ml # Voids 1 1 # Bowel Movements 1 0 0 Result Diagram: 05/26/16 0552 05/25/16 0634 Imaging Last Impressions Chest X-Ray 05/25/16 0600 Signed Impressions: Service Date/Time: May 04:20 - CONCLUSION: Extubation and improving aeration. Jairon Blount MD CT Angiography 05/23/16 0000 Signed Impressions: Service Date/Time: Monday, May 23, 2016 16:59 - CONCLUSION: 1. No pulmonary embolus. 2. Ground glass opacity throughout the lungs which may represent processes such as edema. 3. Mild bilateral pleural effusions. Jairon Vega MD Objective Remarks GENERAL: NAD SKIN: Warm and dry. HEAD: Normocephalic. EYES: No scleral icterus. No injection or drainage. NECK: Supple, trachea midline. No JVD or lymphadenopathy. CARDIOVASCULAR: Regular rate and rhythm without murmurs, gallops, or rubs. RESPIRATORY: Breath sounds equal bilaterally. No accessory muscle use. GASTROINTESTINAL: Abdomen soft, non-tender, nondistended. MUSCULOSKELETAL: No cyanosis; +Trace edema BLE. BACK: Nontender without obvious deformity. No CVA tenderness. Procedures None A/P Problem List: (1) Acute hypoxemic respiratory failure ICD Code: J96.01 Status: Acute (2) NSTEMI (non-ST elevated myocardial infarction) ICD Code: I21.4 Status: Acute (3) Pulmonary edema ICD Code: J81.1 Status: Acute (4) Diabetes ICD Code: E11.9 Status: Chronic (5) Emphysema of lung ICD Code: J43.9 Status: Chronic (6) Anemia ICD Code: D64.9 Status: Chronic (7) Crohns disease ICD Code: K50.90 Status: Chronic (8) Acute on chronic diastolic (congestive) heart failure ICD Code: I50.33 Status: Acute Assessment and Plan 75-year-old female with Acute hypoxemic respiratory failure-resolved Pulmonary edema Acute COPD exacerbation Probable pneumonia -Extubated 05/24/16 -DC Solu-Medrol 60 every 12, on prednisone 20 mg daily for 5 days total -DuoNeb every 6 hours scheduled and when necessary -Broad spectrum antibiotics -CT pulmonary angiogram ruled out acute pulmonary embolus NSTEMI Acute pulmonary edema /congestive heart failure Acute on chronic diastolic CHF Cardiomyopathy probably ischemic -Cardiology Dr. Dillon 2d echo EF 45-50% no wall motion abnormalities. Mild to moderate MR -Plan for CTA cardiac today 05/26/16 -DC Heparin. on Lovenox 30 mg sq q12 - Continue aspirin Coreg and statins -Lasix 20 mg PO BID Possible healthcare associated pneumonia -F/U sputum culture, IV vancomycin x 1 dose 05/23. Continue Cefepime 2 gm IV q8 Hyperglycemia Type 2 diabetes -Sliding-scale insulin, electrolyte replacement protocol PROPH: -Bilateral lower extremity SCDs. Lovenox 30 mg subcutaneous daily . IV Protonix Problem Qualifiers (1) Pulmonary edema: Qualified Code: J81.0 - Acute pulmonary edema (2) Diabetes: (3) Anemia: Eduard Arellano MD May 26, 2016 11:11
[2016-05-26] MEDS ORDERED: Potassium Cl 40 Meq/30 Ml Liq PO (11:17)
[2016-05-26] MEDS ORDERED: FURO20TA PO (11:17)
[2016-05-26] MEDS ORDERED: LIPI10TA PO (11:17)
[2016-05-26] MEDS ORDERED: ASPI81TA11 PO (11:17)
[2016-05-26] MEDS ORDERED: IPRA17I INH (11:17)
[2016-05-26] MEDS ORDERED: SPIRCAP INH (11:17)
[2016-05-26] MEDS ORDERED: POTA-163 PO (11:18)
--- NOTE | 2016-05-26 11:19 | HHI.FF ---
Face to Face Verification Diagnosis: (1) NSTEMI (non-ST elevated myocardial infarction) (2) Acute on chronic diastolic (congestive) heart failure (3) COPD with acute exacerbation Physical Therapy Order: Evaluate and Treat Home Health Nursing Order: Signs/symptoms of disease process I have seen patient Sweta Dawson on 05/26/16. My clinical findings support the need for the requested home health care services because: Patient has SOB Deconditioned w/ increased weakness I certify that my clinical findings support that this patient is homebound because: Poor cardiac reserve Eduard Arellano MD May 26, 2016 11:19
--- NOTE | 2016-05-26 11:24 | HHI.DS ---
Discharge Summary Admission Date May 23, 2016 at 14:32 Discharge Date: May 29, 2016 Admitting Diagnosis respiratory failure (1) Acute hypoxemic respiratory failure ICD Code: J96.01 (2) NSTEMI (non-ST elevated myocardial infarction) ICD Code: I21.4 (3) Pulmonary edema ICD Code: J81.1 (4) Diabetes ICD Code: E11.9 (5) Emphysema of lung ICD Code: J43.9 (6) Anemia ICD Code: D64.9 (7) Crohns disease ICD Code: K50.90 (8) Acute on chronic diastolic (congestive) heart failure ICD Code: I50.33 (9) HCAP (healthcare-associated pneumonia) ICD Code: J18.9 Procedures None Brief History - From Admission Sweta Dawson is a 75 year old female, with history of Osteoarthritis, morbid obesity, anemia, depression, DM2, Crohns Disease, and emphysema, who underwent left total knee replacement by Dr. Rios on 05/09/16. Subsequently was discharged to rehabilitation on 05/12/16 and home yesterday 05/22/16. She presented to the emergency department in severe respiratory distress which started around midnight last night. (Patient was discharged home on Lovenox 30 mg subcutaneous twice a day for DVT prophylaxis) She was profoundly hypoxemic in the ED, chest x-ray showed pulmonary edema. Patient was placed on BiPAP but due to inadequate improvement patient was intubated by Dr. Zhou. Initial troponin was 0.78 without acute EKG changes, BNP was 1574. With troponin elevation and recent knee surgery patient was empirically placed on IV heparin and 1 dose of aspirin was given. A CT angiogram is pending at this time. However PE seems unlikely given the chest x-ray finding of pulmonary edema and troponin elevation, and patient was getting DVT prophylaxis-hypoxemic respiratory failure most likely secondary to cardiogenic pulmonary edema I evaluated the patient in the ED. She is intubated but wakes up easily follows commands. Patient had been started on scheduled aspirin and beta blockers and statins, cardiology consulted and have also added Lasix 20 mg 1 and every 12. 2-D echo is pending at this time. I have updated the at the bedside CBC/BMP: 05/26/16 0552 05/25/16 0634 Significant Findings Laboratory Tests Test 05/23/16 05/23/16 05/23/16 05/23/16 12:45 13:30 13:40 13:49 Red Blood Count 3.39 MIL/MM3 (4.00-5.30) Mean Corpuscular Volume 104.5 FL (80.0-100.0) Mean Corpuscular Hemoglobin 34.9 PG (27.0-34.0) Red Cell Distribution Width 17.8 % (11.6-17.2) Platelet Count 733 TH/MM3 (150-450) Neutrophils (%) (Auto) 77.7 % (16.0-70.0) Neutrophils # (Auto) 8.0 TH/MM3 (1.8-7.7) Creatinine 1.08 MG/DL (0.50-1.00) Estimat Glomerular Filtration 50 ML/MIN (>89) Rate Random Glucose 160 MG/DL (74-106) Aspartate Amino Transf 66 U/L (15-37) (AST/SGOT) Alanine Aminotransferase 55 U/L (10-53) (ALT/SGPT) Creatine Kinase MB 4.2 NG/ML (0.5-3.6) Troponin I 0.78 NG/ML 0.81 NG/ML (0.02-0.05) (0.02-0.05) B-Type Natriuretic Peptide 1574 PG/ML (0-100) Albumin 2.9 GM/DL (3.4-5.0) Blood Gas Base Excess -3.6 mmol/L (-2-2) Arterial Blood pH 7.28 (7.380-7.420) Arterial Blood Partial 48 mmHg (38-42) Pressure CO2 Arterial Blood Partial 224 mmHG Pressure O2 (61-120) Blood Gas Hemoglobin 11.2 G/DL (12.0-16.0) Activated Partial 22.0 SEC Thromboplast Time (24.3-30.1) D-Dimer Quantitative (PE/DVT) 6.10 MG/L FEU (0.00-0.50) Test 05/23/16 05/24/16 05/24/16 05/24/16 20:26 00:18 00:48 04:49 Total Creatine Kinase 199 U/L (26-192) Creatine Kinase MB 7.4 NG/ML (0.5-3.6) Troponin I 1.28 NG/ML 1.63 NG/ML (0.02-0.05) (0.02-0.05) Activated Partial 34.5 SEC Thromboplast Time (24.3-30.1) Red Blood Count 2.71 MIL/MM3 (4.00-5.30) Hemoglobin 9.3 GM/DL (11.6-15.3) Hematocrit 27.4 % (35.0-46.0) Mean Corpuscular Volume 101.1 FL (80.0-100.0) Mean Corpuscular Hemoglobin 34.4 PG (27.0-34.0) Red Cell Distribution Width 17.3 % (11.6-17.2) Platelet Count 483 TH/MM3 (150-450) Neutrophils (%) (Auto) 93.6 % (16.0-70.0) Lymphocytes (%) (Auto) 3.7 % (9.0-44.0) Neutrophils # (Auto) 8.2 TH/MM3 (1.8-7.7) Lymphocytes # (Auto) 0.3 TH/MM3 (1.0-4.8) Potassium Level 3.3 MEQ/L (3.5-5.1) Blood Urea Nitrogen 23 MG/DL (7-18) Creatinine 1.14 MG/DL (0.50-1.00) Estimat Glomerular Filtration 47 ML/MIN (>89) Rate Random Glucose 163 MG/DL (74-106) Calcium Level 8.3 MG/DL (8.5-10.1) Aspartate Amino Transf 56 U/L (15-37) (AST/SGOT) Alanine Aminotransferase 65 U/L (10-53) (ALT/SGPT) Total Protein 5.6 GM/DL (6.4-8.2) Albumin 2.3 GM/DL (3.4-5.0) LDL Cholesterol 117 MG/DL (0-99) Test 05/24/16 05/24/16 05/24/16 05/25/16 10:05 14:26 17:40 00:42 Activated Partial 44.9 SEC 36.5 SEC 35.1 SEC 35.0 SEC Thromboplast Time (24.3-30.1) (24.3-30.1) (24.3-30.1) (24.3-30.1) White Blood Count 14.1 TH/MM3 (4.0-11.0) Red Blood Count 2.66 MIL/MM3 (4.00-5.30) Hemoglobin 9.4 GM/DL (11.6-15.3) Hematocrit 27.9 % (35.0-46.0) Mean Corpuscular Volume 104.7 FL (80.0-100.0) Mean Corpuscular Hemoglobin 35.2 PG (27.0-34.0) Red Cell Distribution Width 17.6 % (11.6-17.2) Platelet Count 519 TH/MM3 (150-450) Test 05/25/16 05/25/16 05/26/16 06:34 13:35 05:52 White Blood Count 12.4 TH/MM3 (4.0-11.0) Red Blood Count 2.86 MIL/MM3 2.78 MIL/MM3 (4.00-5.30) (4.00-5.30) Hemoglobin 9.8 GM/DL 9.6 GM/DL (11.6-15.3) (11.6-15.3) Hematocrit 28.9 % 28.5 % (35.0-46.0) (35.0-46.0) Mean Corpuscular Volume 101.3 FL 102.6 FL (80.0-100.0) (80.0-100.0) Mean Corpuscular Hemoglobin 34.4 PG 34.5 PG (27.0-34.0) (27.0-34.0) Platelet Count 539 TH/MM3 473 TH/MM3 (150-450) (150-450) Neutrophils (%) (Auto) 93.9 % (16.0-70.0) Lymphocytes (%) (Auto) 3.1 % (9.0-44.0) Neutrophils # (Auto) 11.6 TH/MM3 (1.8-7.7) Lymphocytes # (Auto) 0.4 TH/MM3 (1.0-4.8) Activated Partial 36.6 SEC 38.3 SEC Thromboplast Time (24.3-30.1) (24.3-30.1) Blood Urea Nitrogen 29 MG/DL (7-18) Creatinine 1.10 MG/DL (0.50-1.00) Estimat Glomerular Filtration 49 ML/MIN (>89) Rate Random Glucose 147 MG/DL (74-106) Calcium Level 8.3 MG/DL (8.5-10.1) Aspartate Amino Transf 39 U/L (15-37) (AST/SGOT) Alanine Aminotransferase 62 U/L (10-53) (ALT/SGPT) Total Protein 6.2 GM/DL (6.4-8.2) Albumin 2.3 GM/DL (3.4-5.0) Troponin I 0.80 NG/ML (0.02-0.05) Red Cell Distribution Width 17.5 % (11.6-17.2) Imaging Last Impressions Chest X-Ray 05/25/16 0600 Signed Impressions: Service Date/Time: May 04:20 - CONCLUSION: Extubation and improving aeration. Jairon Blount MD CT Angiography 05/23/16 0000 Signed Impressions: Service Date/Time: Monday, May 23, 2016 16:59 - CONCLUSION: 1. No pulmonary embolus. 2. Ground glass opacity throughout the lungs which may represent processes such as edema. 3. Mild bilateral pleural effusions. Jairon Vega MD PE at Discharge GENERAL: NAD SKIN: Warm and dry. HEAD: Normocephalic. EYES: No scleral icterus. No injection or drainage. NECK: Supple, trachea midline. No JVD or lymphadenopathy. CARDIOVASCULAR: Regular rate and rhythm without murmurs, gallops, or rubs. RESPIRATORY: Breath sounds equal bilaterally. No accessory muscle use. GASTROINTESTINAL: Abdomen soft, non-tender, nondistended. MUSCULOSKELETAL: No cyanosis; +Trace edema BLE. BACK: Nontender without obvious deformity. No CVA tenderness. Hospital Course Patient was admitted secondary to acute hypoxemic respiratory failure for which she was intubated and extubated the following day on 05/24/16. She was diagnosed also with COPD exacerbation and healthcare associated pneumonia. She was started on IV steroid, bronchodilator and oxygen saturation was maintained above 92%. CTA was negative for PE She was subsequently switched to by mouth steroids. She completed treatment for healthcare associated pneumonia with antibiotics. Also secondary to acute pulmonary edema patient was diagnosed with acute on chronic diastolic CHF, for which cardiology was consulted and she had ACS ruled out per protocol. She was started on heparin drip and switched to Lovenox subcutaneous , and continue on beta faby, statin, aspirin, diuretics. CTA cardiac was performed followed by the nuclear stress test which was negative for ischemic area. All electrolyte abnormalities were corrected accordingly. Patient was continue on her medications for other chronic medical conditions. DVT and GI prophylaxis were provided. Prior to discharge, vitals were stable. Pt Condition on Discharge: Stable Discharge Disposition: Disch w/ Home Health Serv Discharge Time: > 30 minutes Discharge Instructions DIET: Follow Instructions for: Heart Healthy Diet Activities you can perform: Regular-No Restrictions Follow up Referrals: Cardiology PCP Follow-up - 1 Week New Medications: Ipratropium HFA 12.9 GM Inh (Atrovent HFA 12.9 GM Inh) 17 Mcg/Act Aer 2 PUFF INH Q6HR PRN SHORTNESS OF BREATH #1 Ref 0 INHALER Potassium Chloride ER (Potassium Chloride ER) 20 Meq Tab 20 MEQ PO BID Electrolyte Replacement #60 Ref 0 TAB Temazepam (Restoril) 15 Mg Cap 15 MG PO HS PRN INSOMNIA #30 Ref 0 CAP Tiotropium Inh (Spiriva Handihaler) 18 Mcg Cap 18 MCG INH DAILY 1 capsule = 18 mcg COPD #30 Ref [address] (Aspirin EC) 81 Mg Tabdr 81 MG PO DAILY Stroke Prevention #30 TAB Atorvastatin (Lipitor) 10 Mg Tab 10 MG PO HS Cholesterol Management #30 TAB Carvedilol (Coreg) 6.25 Mg Tab 12.5 MG PO Q12HR Blood Pressure Management #60 TAB Furosemide (Furosemide) 20 Mg Tab 20 MG PO BID@09,18 Prevent Heart Failure #60 TAB Continued Medications: Colesevelam (Welchol) 3.75 Gm Pkt 3.75 GM PO DAILY Hyperlipidemia,type 2 diabetes #30 Ref 0 PKT Docusate Sodium (Dok) 100 Mg Cap 100 MG PO BID PRN CONSTIPATION Days 10 CAP Enoxaparin Inj (Lovenox Inj) 30 Mg/0.3 Ml Syr 30 MG SQ BID Blood Clot Prevention #10 Ref 0 SYRINGE Exenatide Pen Inj (Bydureon Pen Inj) 2 Mg Pfpen 2 MG SQ Q7D Blood Sugar Management #4 Ref 0 INJECTION Fluoxetine (Fluoxetine) 20 Mg Cap 20 MG PO DAILY Days 30 CAP Folic Acid (Folate) 1 Mg Tab 1 MG PO DAILY Days 30 TAB Hydrocodone-Acetaminophen (Hydrocodone-Acetaminophen) 7.5-325 mg Tab 1 TAB PO Q4H PRN PAIN 6-8 #30 TAB Mercaptopurine (Mercaptopurine) 50 Mg Tab 100 MG PO DAILY Days 10 TAB Nystatin-Triamcinolone (Nystatin-Triamcinolone) 100,000-0.1 Unit/Gm Cream 1 APPLIC TOPICAL Q12HR groin marcelo Days 5 TUBE Pantoprazole (Pantoprazole) 40 Mg Tab 40 MG PO Q12HR Days 10 TAB Pioglitazone (Actos) 30 Mg Tab 30 MG PO DAILY Days 10 TAB Temazepam (Restoril) 7.5 Mg Cap 7.5 MG PO HS PRN INSOMNIA Days 10 CAP Valacyclovir (Valacyclovir) 1 Gm Tab 1000 MG PO DAILY Mgmt Viral Infection #30 Ref 0 TAB Zinc Oxide (Topical) (Zinc Oxide) 20 % Oin 1 APPLIC TOPICAL BID PRN RASH Days 10 TUBE Discontinued Medications: Hydrocodone-Acetaminophen (Hydrocodone-Acetaminophen) 7.5-325 mg Tab 2 TAB PO Q6H PRN pain 9-10 #20 TAB Valacyclovir (Valtrex) 500 Mg Tab 1000 MG PO DAILY Days 10 TAB Eduard Arellano MD May 26, 2016 11:24
--- NOTE | 2016-05-26 12:42 | RADRPT ---
EXAM DATE/TIME: 05/26/2016 11:40 [facility] COMPARISON: No previous studies available for comparison. INDICATIONS : Recent myocardial infarction. Heart disease. RADIATION DOSE: 4.34 CTDIvol (mGy) MEDICAL HISTORY : Hypertension. Diabetes mellitus type 2. Cardiovascular disease SURGICAL HISTORY : Cholecystectomy. ENCOUNTER: Initial ACUITY: 1 day PAIN SCALE: 0/10 LOCATION: chest TECHNIQUE: Low-dose prospectively gated CT images of the heart were obtained and quantitative scott lysis of coronary artery calcification was performed. Comparison was made to a patient database of [facility] age and gender. Using automated exposure control and adjustment of the mA and/or kV according to patient size, radiation dose was kept as low as reasonably achievable to obtain optimal diagnostic quality images. FINDINGS: Coronary arteries are heavily calcified. SCORE: 1041 PERCENTILE: 90 LOCATION: Left main 72 LAD 606 Circumflex 31 RCA 332 TOTAL 1041 RECOMMENDATION: >600 * Very high risk. * Recommend risk factor modification. * LDL target <70 mg/dl. * Consider myocardial ischemia test and subsequent CT or catheter angiography for positive ischemia t est results. * The decision to support continuing with coronary CT angiography is based on medical necessity as de termined by review of data and consultation with the referring physician. Aaron Jordan MD on May 26, 2016 at 12:34 Board Certified Radiologist. This report was verified electronically.
--- NOTE | 2016-05-26 15:02 | MB ---
cc: Siria JAIN M.D. DATE OF CONSULTATION: 05/26/2016. REASON FOR CONSULTATION: Status post left total knee arthroplasty. HISTORY OF PRESENT ILLNESS: This pleasant 75-year-old female well-known to me is now 2-1/2 weeks status post left total knee arthroplasty; this was done May 09. The patient was readmitted a few days ago with an acute [place] and consultation is for postoperative visit. She was brought back to the hospital on 05/23 with respiratory distress and intubated and then extubated and now she is in bed recovering. Since her readmission, she has not had any continuation of therapy and today she is lying in bed fairly comfortable but complaining that her knee is getting stiffer with no therapy. PAST MEDICAL HISTORY: Other past history: 1. The patient has a history of respiratory failure and emphysema. 2. Diabetes. 3. Anemia. 4. Crohn's disease. 5. She has a history of Mone in her groin. 6. Herpes virus. REVIEW OF SYSTEMS: Noncontributory. FAMILY HISTORY: Noncontributory. CURRENT MEDICATIONS: 1. Zinc oxide. 2. Valtrex. 3. Restoril. 4. Actos. 5. Pantoprazole. 6. Mercaptopurine. 7. Hydrocodone. 8. Folic acid. 9. Fluoxetine. 10. Docusate. 11. Nystatin. 12. Lovenox. 13. Valacyclovir. 14. Welchol. 15. . PHYSICAL EXAMINATION: GENERAL: We find a 75-year-old female well-developed, well-nourished and alert and oriented times three complaining of stiffness in her left knee. VITAL SIGNS: Her vital signs now are stable and she is afebrile. EXTREMITIES: On examination of the left lower extremity, her left knee is slightly tender but the wound is well-healed. There is no evidence of inflammation or infection today. Minimal swelling. No erythema. Neurovascularly intact to her toes. Range of motion is somewhat limited from full extension into 60 degrees of flexion. IMPRESSION AT THIS TIME: The patient is now 2-1/2 weeks status post left total knee arthroplasty. The patient needs to start back on her CPM machine and daily physical therapy which we will have ordered for her and we will follow her up in the office when she gets out of the hospital in one to two weeks time for a recheck. J. MD MIRELLA Forbes/MANNY /2:21 PM /2:50 PM
[2016-05-26] MEDS: ZOLPIDEM TARTRATE 10 MG TAB PO PRN (20:56)
[2016-05-26] MEDS: ATORVASTATIN 10 MG TAB PO SCH ×2 (20:56→21:00)
[2016-05-27 00:04] VITALS: BP 101/51; PULSE 82; RESP 18; TEMP 98; O2SAT 98
[2016-05-27] MEDS: INSULIN ASPART SUPPLEMENTAL SCALE SQ SCH ×6 (00:13→20:00)
[2016-05-27] MEDS: CHLORHEXIDINE GLUCONATE 2 % 1 PACK (2 CLOTHS) TOP SCH (04:00)
[2016-05-27] MEDS: CEFEPIME INJ 2,000 MG in SODIUM CHLORIDE 0.9% INJ 100 ML IV SCH ×2 (05:00→17:05)
[2016-05-27] MEDS: ENOXAPARIN SODIUM 30 MG/0.3 ML SYRINGE SQ SCH ×2 (05:15→17:05)
[2016-05-27 05:35] VITALS: BP 125/58; PULSE 84; RESP 18; TEMP 97.9; O2SAT 98
[2016-05-27 07:24] LABS: HEMATOCRIT 33.8 % (35.0-46.0); MEAN CELL VOLUME 102.9 FL (80.0-100.0); MEAN CORPUSCULAR HEMOGLOBIN 33.7 PG (27.0-34.0); MEAN CORPUSCULAR HGB CONC 32.7 % (32.0-36.0); PLATELET COUNT 507 TH/MM3 (150-450); RED BLOOD COUNT 3.28 MIL/MM3 (4.00-5.30); RED CELL DISTRIBUTION WIDTH 17.5 % (11.6-17.2); REVIEW FLAG FINAL; WHITE BLOOD COUNT 7.4 TH/MM3 (4.0-11.0)
[2016-05-27 08:00] VITALS: BP 118/64; PULSE 87; RESP 16; TEMP 97.9; O2SAT 99
[2016-05-27] MEDS: CHLORHEXIDINE 0.12% (ORAL KIT) 15 ML CUP MT SCH ×2 (08:00→20:00)
[2016-05-27] MEDS: COLESEVELAM HCL 625 MG TAB PO SCH (08:25)
[2016-05-27] MEDS: CARVEDILOL 6.25 MG TAB PO SCH ×2 (08:27→21:05)
[2016-05-27] MEDS: valACYclovir HCL 500 MG TAB PO SCH (08:27)
[2016-05-27] MEDS: PANTOPRAZOLE SOD 40 MG DELAYED RELEASE TAB PO SCH (08:27)
[2016-05-27] MEDS: SODIUM CHLORIDE 0.9% FLUSH 5 ML FLUSH IVF SCH ×2 (08:28→21:06)
[2016-05-27] MEDS: NYSTATIN/TRIAMCINOLONE CREAM 15 GM TOPICAL SCH ×2 (08:28→21:09)
[2016-05-27] MEDS: predniSONE 20 MG TAB PO SCH (08:28)
[2016-05-27] MEDS: ASPIRIN EC 81 MG TABEC PO SCH (08:28)
[2016-05-27] MEDS: RESP: ALBUTEROL 2.5 MG/IPRATROPIUM 0.5 MG NEB (SCH) NEB (09:27)
[2016-05-27] MEDS: ACETAMINOPHEN/HYDROcodone 325 MG/7.5 MG TAB PO PRN ×2 (11:15→21:06)
[2016-05-27 12:00] VITALS: BP 111/56; PULSE 86; RESP 16; TEMP 97.9; O2SAT 99
--- NOTE | 2016-05-27 12:07 | HHI.PR ---
Subjective Remarks Follow-up non-ST elevation [place]/acute on chronic diastolic CHF 05/26/16-patient seen and examined; currently denies any chest pain or shortness of breath. Vitals stable and she is looking for possible discharge home today. CTA cardiac pending 05/27/16-patient seen and examined. No shortness of breath or chest pain. Case discussed with cardiology Dr. Torres. Objective Vitals Vital Signs Date Time Temp Pulse Resp B/P Pulse Ox O2 Delivery O2 Flow Rate FiO2 05/27/16 08:00 97.9 87 16 118/64 99 05/27/16 05:35 97.9 84 18 125/58 98 05/27/16 00:04 98.0 82 18 101/51 98 05/26/16 21:19 98 Nasal Cannula 1.00 05/26/16 21:05 Room Air 05/26/16 20:00 81 05/26/16 20:00 97.6 81 20 101/55 99 05/26/16 16:03 97.8 79 18 107/51 95 I/O 05/26/16 05/26/16 05/26/16 05/27/16 05/27/16 05/27/16 07:00 15:00 23:00 07:00 15:00 23:00 Intake Total 100 ml 480 ml Balance 100 ml 480 ml Intake Oral 100 ml 480 ml IV Total 0 ml # Voids 1 2 2 # Bowel Movements 0 1 0 Result Diagram: 05/27/16 0616 05/25/16 0634 Imaging Last Impressions Chest X-Ray 05/25/16 0600 Signed Impressions: Service Date/Time: May 04:20 - CONCLUSION: Extubation and improving aeration. Jairon Blount MD CT Angiography 05/23/16 0000 Signed Impressions: Service Date/Time: Monday, May 23, 2016 16:59 - CONCLUSION: 1. No pulmonary embolus. 2. Ground glass opacity throughout the lungs which may represent processes such as edema. 3. Mild bilateral pleural effusions. Jairon Vega MD Objective Remarks GENERAL: NAD SKIN: Warm and dry. HEAD: Normocephalic. EYES: No scleral icterus. No injection or drainage. NECK: Supple, trachea midline. No JVD or lymphadenopathy. CARDIOVASCULAR: Regular rate and rhythm without murmurs, gallops, or rubs. RESPIRATORY: Breath sounds equal bilaterally. No accessory muscle use. GASTROINTESTINAL: Abdomen soft, non-tender, nondistended. MUSCULOSKELETAL: No cyanosis; +Trace edema BLE. BACK: Nontender without obvious deformity. No CVA tenderness. Procedures None A/P Problem List: (1) Acute hypoxemic respiratory failure ICD Code: J96.01 Status: Acute (2) NSTEMI (non-ST elevated myocardial infarction) ICD Code: I21.4 Status: Acute (3) Pulmonary edema ICD Code: J81.1 Status: Acute (4) Diabetes ICD Code: E11.9 Status: Chronic (5) Emphysema of lung ICD Code: J43.9 Status: Chronic (6) Anemia ICD Code: D64.9 Status: Chronic (7) Crohns disease ICD Code: K50.90 Status: Chronic (8) Acute on chronic diastolic (congestive) heart failure ICD Code: I50.33 Status: Acute Assessment and Plan 75-year-old female with Acute hypoxemic respiratory failure-resolved Pulmonary edema Acute COPD exacerbation Probable pneumonia -Extubated 05/24/16 -s/p Solu-Medrol 60 every 12, continue prednisone 20 mg daily for 5 days total -DuoNeb every 6 hours scheduled and when necessary -Broad spectrum antibiotics including cefepime -CT pulmonary angiogram ruled out acute pulmonary embolus NSTEMI Acute pulmonary edema /congestive heart failure Acute on chronic diastolic CHF Cardiomyopathy probably ischemic -Cardiology Dr. Dillon 2d echo EF 45-50% no wall motion abnormalities. Mild to moderate MR -Abnormal CTA cardiac performed 05/26/16 therefore cardiology to talk to patient regarding possible left heart catheterization -DC Heparin. on Lovenox 30 mg sq q12 - Continue aspirin Coreg and statins -Lasix 20 mg PO BID Status post left total knee arthroplasty: Recent surgery 2 half weeks ago, appreciate input from orthopedic surgery. Continue with PT Possible healthcare associated pneumonia -F/U sputum culture, IV vancomycin x 1 dose 05/23. Continue Cefepime 2 gm IV q8 Hyperglycemia Type 2 diabetes -Sliding-scale insulin, electrolyte replacement protocol PROPH: -Bilateral lower extremity SCDs. Lovenox 30 mg subcutaneous daily . IV Protonix Problem Qualifiers (1) Pulmonary edema: Qualified Code: J81.0 - Acute pulmonary edema (2) Diabetes: (3) Anemia: Eduard Arellano MD May 27, 2016 12:06
--- NOTE | 2016-05-27 13:43 | PD.CARD.PN ---
Subjective Subjective Remarks No chest pain, no shortness of breath Objective Medications Current Medications (NS Flush) 2 ml UNSCH PRN IVF 05/23/16 14:45 Miscellaneous Information 1 Q361D XX 05/23/16 14:45 05/23/16 03:00 (Chlorhexidine 2% Cloth) 3 pack Taper DAILY@04 TOP 05/24/16 04:00 05/20/17 03:59 05/27/16 04:00 (Chlorhexidine 2% Cloth) 3 pack UNSCH PRN TOP 05/23/16 14:45 (Colace) 100 mg BID PRN PO 05/23/16 16:15 (Purinethol) 100 mg DAILY PO 05/24/16 09:00 Hold (Mycolog Ii Cream) 1 applic Q12HR TOPICAL 05/23/16 21:00 05/27/16 08:28 (Valtrex) 1,000 mg DAILY PO 05/24/16 09:00 05/27/16 08:27 Colesevelam HCl 3750 mg 3,750 mg DAILY PO 05/24/16 09:00 05/27/16 08:25 (Maxipime Inj/NS Inj) 100 ml @ 200 mls/hr Q12H IV 05/23/16 17:00 05/27/16 05:00 (Ecotrin Ec) 81 mg DAILY PO 05/24/16 09:00 05/27/16 08:28 (Lipitor) 10 mg HS PO 05/23/16 21:00 05/25/16 21:09 (NovoLOG SUPPLEMENTAL SCALE) 1 Q4HR SQ 05/23/16 20:00 05/27/16 00:13 (Peridex 0.12% Liq) 15 ml BID@08,20 MT 05/23/16 20:00 05/27/16 08:00 (D50w (Vial) Inj) 25 ml UNSCH PRN IV PUSH 05/23/16 19:30 (Glucagon Inj) 1 mg UNSCH PRN OTHER 05/23/16 19:30 ([place] 7.5-325 Mg) 1 tab Q4H PRN PO 05/24/16 17:30 05/27/16 11:15 (Protonix) 40 mg DAILY PO 05/25/16 14:00 05/27/16 08:27 (Lovenox Inj) 30 mg Q12H SQ 05/25/16 18:00 05/27/16 05:15 (Deltasone) 20 mg DAILY PO 05/26/16 09:00 05/29/16 08:59 05/27/16 08:28 (Ambien) 10 mg HS PRN PO 05/25/16 17:45 05/26/16 20:56 (Coreg) 12.5 mg Q12HR PO 05/26/16 21:00 05/27/16 08:27 Vital Signs / I&O Vital Signs Date Time Temp Pulse Resp B/P Pulse Ox O2 Delivery O2 Flow Rate FiO2 05/27/16 12:00 97.9 86 16 111/56 99 05/27/16 08:30 Nasal Cannula 2.00 05/27/16 08:00 97.9 87 16 118/64 99 05/27/16 05:35 97.9 84 18 125/58 98 05/27/16 00:04 98.0 82 18 101/51 98 05/26/16 21:19 98 Nasal Cannula 1.00 05/26/16 21:05 Room Air 05/26/16 20:00 81 05/26/16 20:00 97.6 81 20 101/55 99 05/26/16 16:03 97.8 79 18 107/51 95 I/O 05/26/16 05/26/16 05/26/16 05/27/16 05/27/16 05/27/16 07:00 15:00 23:00 07:00 15:00 23:00 Intake Total 100 ml 480 ml Balance 100 ml 480 ml Intake Oral 100 ml 480 ml IV Total 0 ml # Voids 1 2 2 # Bowel Movements 0 1 0 Physical Exam GENERAL: NAD SKIN: Warm and dry. HEAD: Atraumatic. Normocephalic. EYES: Pupils equal and round. No scleral icterus. No injection or drainage. ENT: No nasal bleeding or discharge. Mucous membranes pink and moist. NECK: Trachea midline. No JVD. CARDIOVASCULAR: Regular rate and rhythm. RESPIRATORY: No accessory muscle use. Decreased breath sounds bilaterally, no rales noted GASTROINTESTINAL: Abdomen soft, non-tender, nondistended. Hepatic and splenic margins not palpable. MUSCULOSKELETAL: Left knee with skylar from previous surgery NEUROLOGICAL: Awake and alert. No obvious cranial nerve deficits. Motor grossly within normal limits. Five out of 5 muscle strength in the arms and legs. Normal speech. PSYCHIATRIC: Appropriate mood and affect; insight and judgment normal. Laboratory Laboratory Tests Test 05/27/16 06:16 White Blood Count 7.4 TH/MM3 Red Blood Count 3.28 MIL/MM3 Hemoglobin 11.1 GM/DL Hematocrit 33.8 % Mean Corpuscular Volume 102.9 FL Mean Corpuscular Hemoglobin 33.7 PG Mean Corpuscular Hemoglobin 32.7 % Concent Red Cell Distribution Width 17.5 % Platelet Count 507 TH/MM3 Mean Platelet Volume 8.9 FL Assessment and Plan Problem List: (1) Acute hypoxemic respiratory failure (2) NSTEMI (non-ST elevated myocardial infarction) (3) Pulmonary edema (4) Probable healthcare associated pneumonia (5) COPD with acute exacerbation (6) Acute on chronic diastolic (congestive) heart failure Assessment and Plan 1) Patient was suppose to have a coronary CTA, but a calcium score was done and noted to be high... does not help in the acute setting, just puts her in a higher risk category for future events 2) Will do pharmacologic nuclear stress test in the morning. If positive, then her and I will discuss medical management vs cardiac catheterization 3) Continue with current medical management Problem Qualifiers (1) Pulmonary edema: Qualified Code: J81.0 - Acute pulmonary edema Remington Torres DO May 27, 2016 13:43
[2016-05-27 16:00] VITALS: BP 118/58; PULSE 85; RESP 16; TEMP 98.1; O2SAT 96
[2016-05-27 20:00] VITALS: PULSE 78
[2016-05-27] MEDS: ATORVASTATIN 10 MG TAB PO SCH (21:00)
[2016-05-27] MEDS: ZOLPIDEM TARTRATE 10 MG TAB PO PRN (21:06)
[2016-05-28] VITALS: BP 122/59; PULSE 84; RESP 22; TEMP 98.1; O2SAT 99
[2016-05-28 04:00] VITALS: BP 155/76; PULSE 61; RESP 20; TEMP 98.2; O2SAT 97
[2016-05-28] MEDS: INSULIN ASPART SUPPLEMENTAL SCALE SQ SCH ×6 (04:00→20:00)
[2016-05-28] MEDS: CHLORHEXIDINE GLUCONATE 2 % 1 PACK (2 CLOTHS) TOP SCH (04:00)
[2016-05-28] MEDS: CEFEPIME INJ 2,000 MG in SODIUM CHLORIDE 0.9% INJ 100 ML IV SCH ×2 (05:00→16:05)
[2016-05-28] MEDS: ENOXAPARIN SODIUM 30 MG/0.3 ML SYRINGE SQ SCH ×2 (05:04→19:10)
[2016-05-28 08:00] VITALS: BP 137/65; PULSE 83; RESP 16; TEMP 98.1; O2SAT 100
[2016-05-28] MEDS: CHLORHEXIDINE 0.12% (ORAL KIT) 15 ML CUP MT SCH ×2 (09:23→20:00)
[2016-05-28] MEDS: CARVEDILOL 6.25 MG TAB PO SCH ×2 (09:24→21:05)
[2016-05-28] MEDS: predniSONE 20 MG TAB PO SCH (09:24)
[2016-05-28] MEDS: PANTOPRAZOLE SOD 40 MG DELAYED RELEASE TAB PO SCH (09:24)
[2016-05-28] MEDS: ASPIRIN EC 81 MG TABEC PO SCH (09:24)
[2016-05-28] MEDS: valACYclovir HCL 500 MG TAB PO SCH (09:24)
[2016-05-28] MEDS: NYSTATIN/TRIAMCINOLONE CREAM 15 GM TOPICAL SCH ×2 (09:28→21:00)
[2016-05-28] MEDS: SODIUM CHLORIDE 0.9% FLUSH 5 ML FLUSH IVF SCH ×2 (09:28→21:05)
[2016-05-28 09:47] LABS: AUTOMATED NEUTROPHIL # 4.1 TH/MM3 (1.8-7.7); BASOPHIL % 0.3 % (0.0-2.0); EOSINOPHIL # 0.1 TH/MM3 (0-0.4); HEMATOCRIT 28.7 % (35.0-46.0); HEMO FLAGS DIFF FINAL; LYMPH % 13.1 % (9.0-44.0); LYMPHOCYTE # 0.7 TH/MM3 (1.0-4.8); MEAN CELL VOLUME 102.2 FL (80.0-100.0); MEAN CORPUSCULAR HEMOGLOBIN 34.4 PG (27.0-34.0); MEAN CORPUSCULAR HGB CONC 33.7 % (32.0-36.0); MONO % 9.8 % (0.0-8.0); NEUT % 74.8 % (16.0-70.0); PLATELET COUNT 321 TH/MM3 (150-450); RED BLOOD COUNT 2.81 MIL/MM3 (4.00-5.30); RED CELL DISTRIBUTION WIDTH 18.1 % (11.6-17.2); WHITE BLOOD COUNT 5.5 TH/MM3 (4.0-11.0)
[2016-05-28] MEDS: ACETAMINOPHEN/HYDROcodone 325 MG/7.5 MG TAB PO PRN ×2 (10:10→21:05)
[2016-05-28 10:13] LABS: BICARBONATE 27.7 MEQ/L (21.0-32.0)
[2016-05-28 10:15] LABS: POTASSIUM 5.2 MEQ/L (3.5-5.1)
[2016-05-28] MEDS ORDERED: REGADENOSON INJ 0.4 MG/5 ML SYR ONE (11:00)
[2016-05-28 11:34] VITALS: PULSE 75
--- NOTE | 2016-05-28 12:48 | HHI.PR ---
Subjective Remarks Follow-up non-ST elevation CT/acute on chronic diastolic CHF 05/26/16-patient seen and examined; currently denies any chest pain or shortness of breath. Vitals stable and she is looking for possible discharge home today. CTA cardiac pending 05/27/16-patient seen and examined. No shortness of breath or chest pain. Case discussed with cardiology Dr. Torres. 05/28/16-patient seen and examined. She had nuclear stress test done today and report pending. Denies any chest pain or shortness of breath. Objective Vitals Vital Signs Date Time Temp Pulse Resp B/P Pulse Ox O2 Delivery O2 Flow Rate FiO2 05/28/16 11:34 75 05/28/16 08:00 98.1 83 16 137/65 100 05/28/16 04:00 98.2 61 20 155/76 97 05/28/16 00:00 98.1 84 22 122/59 99 05/27/16 21:00 Nasal Cannula 2.00 05/27/16 20:00 78 05/27/16 16:00 98.1 85 16 118/58 96 I/O 05/27/16 05/27/16 05/27/16 05/28/16 05/28/16 05/28/16 07:00 15:00 23:00 07:00 15:00 23:00 Intake Total 480 ml 120 ml 100 ml Output Total 650 ml Balance 480 ml 120 ml -550 ml Intake Oral 480 ml 120 ml IV Total 100 ml Output Urine Total 650 ml Stool Total 0 ml # Voids 5 3 # Bowel Movements 0 Result Diagram: 05/28/1630 05/28/16 0830 Objective Remarks GENERAL: NAD SKIN: Warm and dry. HEAD: Normocephalic. EYES: No scleral icterus. No injection or drainage. NECK: Supple, trachea midline. No JVD or lymphadenopathy. CARDIOVASCULAR: Regular rate and rhythm without murmurs, gallops, or rubs. RESPIRATORY: Breath sounds equal bilaterally. No accessory muscle use. GASTROINTESTINAL: Abdomen soft, non-tender, nondistended. MUSCULOSKELETAL: No cyanosis; +Trace edema BLE. BACK: Nontender without obvious deformity. No CVA tenderness. Procedures None A/P Problem List: (1) Acute hypoxemic respiratory failure ICD Code: J96.01 Status: Acute (2) NSTEMI (non-ST elevated myocardial infarction) ICD Code: I21.4 Status: Acute (3) Pulmonary edema ICD Code: J81.1 Status: Acute (4) Diabetes ICD Code: E11.9 Status: Chronic (5) Emphysema of lung ICD Code: J43.9 Status: Chronic (6) Anemia ICD Code: D64.9 Status: Chronic (7) Crohns disease ICD Code: K50.90 Status: Chronic (8) Acute on chronic diastolic (congestive) heart failure ICD Code: I50.33 Status: Acute Assessment and Plan 75-year-old female with Acute hypoxemic respiratory failure-resolved Pulmonary edema Acute COPD exacerbation Probable pneumonia -Extubated 05/24/16 -s/p Solu-Medrol 60 every 12, continue prednisone 20 mg daily for 5 days total until 05/29/16 -DuoNeb every 6 hours scheduled and when necessary -Broad spectrum antibiotics including cefepime -CT pulmonary angiogram ruled out acute pulmonary embolus NSTEMI Acute pulmonary edema /congestive heart failure Acute on chronic diastolic CHF Cardiomyopathy probably ischemic -Cardiology Dr. Dillon 2d echo EF 45-50% no wall motion abnormalities. Mild to moderate MR -Abnormal CTA cardiac performed 05/26/16 -Nuclear stress test performed today 05/28/16 pending report -s/p Heparin. on Lovenox 30 mg sq q12 - Continue aspirin Coreg and statins -Lasix 20 mg PO BID Status post left total knee arthroplasty: Recent surgery 2 half weeks ago, appreciate input from orthopedic surgery. Continue with PT Possible healthcare associated pneumonia -F/U sputum culture, IV vancomycin x 1 dose 05/23. Continue Cefepime 2 gm IV q8 Hyperglycemia Type 2 diabetes -Sliding-scale insulin, electrolyte replacement protocol PROPH: -Bilateral lower extremity SCDs. Lovenox 30 mg subcutaneous daily . IV Protonix Problem Qualifiers (1) Pulmonary edema: Qualified Code: J81.0 - Acute pulmonary edema (2) Diabetes: (3) Anemia: Eduard Arellano MD May 28, 2016 12:48
[2016-05-28] MEDS: COLESEVELAM HCL 625 MG TAB PO SCH (14:08)
--- NOTE | 2016-05-28 15:17 | RADRPT ---
EXAM DATE/TIME: 05/28/2016 10:33 [facility] COMPARISON: No previous studies available for comparison. INDICATIONS : Chest tightness. Acute SD DOSE: 27.9 mCi Tc99m Myoview at stress. 8.7 mCi Tc99m Myoview at rest. 0.4 mg Lexiscan STRESS SYMPTOMS: Chest tightness and shortness of breath. EJECTION FRACTION: 47% MEDICAL HISTORY : Hypercholesterolemia. Hypertension. Diabetes mellitus type 2. Crohn's Disease. SURGICAL HISTORY : Cholecystectomy. Tonsillectomy. Total knee replacement, left. Left ankle. ENCOUNTER: Initial ACUITY: 4 - 6 days PAIN SCALE: 2/10 LOCATION: Midsternal chest TECHNIQUE: The patient underwent pharmacologic stress with infusion of prescribed dose. Continuous ECG tracing was monitored during stress. Gated SPECT imaging was performed after stress and conventional SPECT i maging was performed at rest. The examination was performed on a SPECT/CT scanner, both attenuation and non-corrected datasets were reviewed. FINDINGS: DISTRIBUTION: The maximum perfused segment at stress is in the lateral wall. PERFUSION STUDY: The pattern of perfusion at stress is within normal limits. GATED STUDY: There is intact wall motion and thickening without hypokinetic or dyskinetic segments. CONCLUSION: No areas of ischemia are seen. RISK CATEGORY: Low (<1% Annual Mortality Rate) Jairon Vega MD on May 28, 2016 at 15:09 Board Certified Radiologist. This report was verified electronically.
[2016-05-28 16:00] VITALS: BP 121/58; PULSE 88; RESP 16; TEMP 98; O2SAT 96
--- NOTE | 2016-05-28 16:24 | PD.CARD.PN ---
Subjective Subjective Remarks No chest pain, no shortness of breath Objective Medications Current Medications Medications (Trade) Dose Ordered Sig/Cr Route Start Time Stop Time Status Last Admin Miscellaneous Information 1 Q361D XX 05/23/16 14:45 05/23/16 03:00 (Chlorhexidine 2% Cloth) 3 pack Taper DAILY@04 TOP 05/24/16 04:00 05/20/17 03:59 05/28/16 04:00 (Chlorhexidine 2% Cloth) 3 pack UNSCH PRN TOP 05/23/16 14:45 (Colace) 100 mg BID PRN PO 05/23/16 16:15 (Purinethol) 100 mg DAILY PO 05/24/16 09:00 Hold (Mycolog Ii Cream) 1 applic Q12HR TOPICAL 05/23/16 21:00 05/28/16 09:28 (Valtrex) 1,000 mg DAILY PO 05/24/16 09:00 05/28/16 09:24 Colesevelam HCl 3750 mg 3,750 mg DAILY PO 05/24/16 09:00 05/28/16 14:08 (Maxipime Inj/NS Inj) 100 ml @ 200 mls/hr Q12H IV 05/23/16 17:00 05/28/16 16:05 (Ecotrin Ec) 81 mg DAILY PO 05/24/16 09:00 05/28/16 09:24 (Lipitor) 10 mg HS PO 05/23/16 21:00 05/25/16 21:09 (NovoLOG SUPPLEMENTAL SCALE) 1 Q4HR SQ 05/23/16 20:00 05/28/16 16:03 (Peridex 0.12% Liq) 15 ml BID@08,20 MT 05/23/16 20:00 05/27/16 08:00 (D50w (Vial) Inj) 25 ml UNSCH PRN IV PUSH 05/23/16 19:30 (Glucagon Inj) 1 mg UNSCH PRN OTHER 05/23/16 19:30 ([place] 7.5-325 Mg) 1 tab Q4H PRN PO 05/24/16 17:30 05/28/16 10:10 (Protonix) 40 mg DAILY PO 05/25/16 14:00 05/28/16 09:24 (Lovenox Inj) 30 mg Q12H SQ 05/25/16 18:00 05/28/16 05:04 (Deltasone) 20 mg DAILY PO 05/26/16 09:00 05/29/16 08:59 05/28/16 09:24 (Ambien) 10 mg HS PRN PO 05/25/16 17:45 05/27/16 21:06 (Coreg) 12.5 mg Q12HR PO 05/26/16 21:00 05/28/16 09:24 Vital Signs / I&O Vital Signs Date Time Temp Pulse Resp B/P Pulse Ox O2 Delivery O2 Flow Rate FiO2 05/28/16 11:34 75 05/28/16 09:32 Nasal Cannula 2.00 05/28/16 08:00 98.1 83 16 137/65 100 05/28/16 04:00 98.2 61 20 155/76 97 05/28/16 00:00 98.1 84 22 122/59 99 05/27/16 21:00 Nasal Cannula 2.00 05/27/16 20:00 78 I/O 05/27/16 05/27/16 05/27/16 05/28/16 05/28/16 05/28/16 07:00 15:00 23:00 07:00 15:00 23:00 Intake Total 480 ml 120 ml 100 ml Output Total 650 ml Balance 480 ml 120 ml -550 ml Intake Oral 480 ml 120 ml IV Total 100 ml Output Urine Total 650 ml Stool Total 0 ml # Voids 5 3 # Bowel Movements 0 Physical Exam GENERAL: NAD SKIN: Warm and dry. HEAD: Atraumatic. Normocephalic. EYES: Pupils equal and round. No scleral icterus. No injection or drainage. ENT: No nasal bleeding or discharge. Mucous membranes pink and moist. NECK: Trachea midline. No JVD. CARDIOVASCULAR: Regular rate and rhythm. RESPIRATORY: No accessory muscle use. Decreased breath sounds bilaterally, no rales noted GASTROINTESTINAL: Abdomen soft, non-tender, nondistended. Hepatic and splenic margins not palpable. MUSCULOSKELETAL: Left knee with skylar from previous surgery NEUROLOGICAL: Awake and alert. No obvious cranial nerve deficits. Motor grossly within normal limits. Five out of 5 muscle strength in the arms and legs. Normal speech. PSYCHIATRIC: Appropriate mood and affect; insight and judgment normal. Laboratory Laboratory Tests Test 05/28/16 08:30 White Blood Count 5.5 TH/MM3 Red Blood Count 2.81 MIL/MM3 Hemoglobin 9.7 GM/DL Hematocrit 28.7 % Mean Corpuscular Volume 102.2 FL Mean Corpuscular Hemoglobin 34.4 PG Mean Corpuscular Hemoglobin 33.7 % Concent Red Cell Distribution Width 18.1 % Platelet Count 321 TH/MM3 Mean Platelet Volume 9.3 FL Neutrophils (%) (Auto) 74.8 % Lymphocytes (%) (Auto) 13.1 % Monocytes (%) (Auto) 9.8 % Eosinophils (%) (Auto) 2.0 % Basophils (%) (Auto) 0.3 % Neutrophils # (Auto) 4.1 TH/MM3 Lymphocytes # (Auto) 0.7 TH/MM3 Monocytes # (Auto) 0.5 TH/MM3 Eosinophils # (Auto) 0.1 TH/MM3 Basophils # (Auto) 0.0 TH/MM3 CBC Comment DIFF FINAL Differential Comment Sodium Level 139 MEQ/L Potassium Level 5.2 MEQ/L Chloride Level 103 MEQ/L Carbon Dioxide Level 27.7 MEQ/L Anion Gap 8 MEQ/L Blood Urea Nitrogen 27 MG/DL Creatinine 0.86 MG/DL Estimat Glomerular Filtration 65 ML/MIN Rate Random Glucose 99 MG/DL Calcium Level 8.2 MG/DL Assessment and Plan Problem List: (1) Acute hypoxemic respiratory failure (2) NSTEMI (non-ST elevated myocardial infarction) (3) Pulmonary edema (4) Probable healthcare associated pneumonia (5) COPD with acute exacerbation (6) Acute on chronic diastolic (congestive) heart failure Assessment and Plan 1) Patient was suppose to have a coronary CTA, but a calcium score was done and noted to be high... does not help in the acute setting, just puts her in a higher risk category for future events 2) Nuclear stress test showing no areas of ischemia, continue medical management 3) Will follow up in the office upon discharge 4) Cardiovascularly stable for discharge whenever per the primary team Problem Qualifiers (1) Pulmonary edema: Qualified Code: J81.0 - Acute pulmonary edema Remington Torres DO May 28, 2016 16:24
[2016-05-28 20:00] VITALS: BP 123/50; PULSE 78; PULSE 82; RESP 18; TEMP 98.1; O2SAT 99
[2016-05-28] MEDS: ATORVASTATIN 10 MG TAB PO SCH (21:00)
[2016-05-28] MEDS: ZOLPIDEM TARTRATE 10 MG TAB PO PRN (21:05)
[2016-05-29] VITALS: BP_SYST 60; PULSE 82; RESP 17; TEMP 98; O2SAT 98
[2016-05-29 04:00] VITALS: BP 124/58; PULSE 78; RESP 17; TEMP 98.4; O2SAT 97
[2016-05-29] MEDS: CHLORHEXIDINE GLUCONATE 2 % 1 PACK (2 CLOTHS) TOP SCH (04:00)
[2016-05-29] MEDS: INSULIN ASPART SUPPLEMENTAL SCALE SQ SCH ×3 (04:00→09:08)
[2016-05-29] MEDS: CEFEPIME INJ 2,000 MG in SODIUM CHLORIDE 0.9% INJ 100 ML IV SCH (04:47)
[2016-05-29] MEDS: ENOXAPARIN SODIUM 30 MG/0.3 ML SYRINGE SQ SCH (06:00)
[2016-05-29 08:01] VITALS: BP 131/55; PULSE 82; RESP 22; TEMP 97.9; O2SAT 96
[2016-05-29 08:05] LABS: HEMATOCRIT 29.3 % (35.0-46.0); MEAN CELL VOLUME 102.5 FL (80.0-100.0); MEAN CORPUSCULAR HEMOGLOBIN 34.7 PG (27.0-34.0); MEAN CORPUSCULAR HGB CONC 33.8 % (32.0-36.0); PLATELET COUNT 322 TH/MM3 (150-450); RED BLOOD COUNT 2.86 MIL/MM3 (4.00-5.30); RED CELL DISTRIBUTION WIDTH 17.8 % (11.6-17.2); REVIEW FLAG FINAL; WHITE BLOOD COUNT 5.2 TH/MM3 (4.0-11.0)
[2016-05-29] MEDS ORDERED: CARV6.25 PO (08:29)
[2016-05-29] MEDS: CARVEDILOL 6.25 MG TAB PO SCH (09:08)
[2016-05-29] MEDS: SODIUM CHLORIDE 0.9% FLUSH 5 ML FLUSH IVF SCH (09:09)
[2016-05-29] MEDS: NYSTATIN/TRIAMCINOLONE CREAM 15 GM TOPICAL SCH (09:09)
[2016-05-29] MEDS: ASPIRIN EC 81 MG TABEC PO SCH (09:09)
[2016-05-29] MEDS: COLESEVELAM HCL 625 MG TAB PO SCH (09:09)
[2016-05-29] MEDS: PANTOPRAZOLE SOD 40 MG DELAYED RELEASE TAB PO SCH (09:09)
[2016-05-29] MEDS: valACYclovir HCL 500 MG TAB PO SCH (09:09)
[2016-05-29] MEDS: CHLORHEXIDINE 0.12% (ORAL KIT) 15 ML CUP MT SCH (09:10)
--- NOTE | 2016-05-29 09:16 | HHI.PR ---
Subjective Remarks Follow-up non-ST elevation CT/acute on chronic diastolic CHF 05/26/16-patient seen and examined; currently denies any chest pain or shortness of breath. Vitals stable and she is looking for possible discharge home today. CTA cardiac pending 05/27/16-patient seen and examined. No shortness of breath or chest pain. Case discussed with cardiology Dr. Torres. 05/28/16-patient seen and examined. She had nuclear stress test done today and report pending. Denies any chest pain or shortness of breath. 05/29/16-patient seen and examined, denies any chest pain or shortness of breath. Nuclear stress test on 05/28/16 negative for ischemia area Objective Vitals Vital Signs Date Time Temp Pulse Resp B/P Pulse Ox O2 Delivery O2 Flow Rate FiO2 05/29/16 04:00 98.4 78 17 124/58 97 05/29/16 00:00 98.0 82 17 60/ 98 05/28/16 21:05 Nasal Cannula 2.00 05/28/16 20:00 98.1 78 18 123/50 99 05/28/16 20:00 82 05/28/16 16:00 98.0 88 16 121/58 96 05/28/16 11:34 75 05/28/16 09:32 Nasal Cannula 2.00 I/O 05/28/16 05/28/16 05/28/16 05/29/16 05/29/16 05/29/16 07:00 15:00 23:00 07:00 15:00 23:00 Intake Total 100 ml 320 ml 280 ml Output Total 650 ml Balance -550 ml 320 ml 280 ml Intake Oral 320 ml 180 ml IV Total 100 ml 100 ml Output Urine Total 650 ml Stool Total 0 ml # Voids 4 2 Result Diagram: 05/29/16 0712 05/28/16 0830 Imaging Last Impressions Myocardial Perfusion Scan Nuc Med 05/28/16 0000 Signed Impressions: Service Date/Time: Saturday, May 28, 2016 10:33 - CONCLUSION: No areas of ischemia are seen. RISK CATEGORY: Low (<1%% Annual Mortality Rate) Jairon Vega MD Chest X-Ray 05/25/16 0600 Signed Impressions: Service Date/Time: May 04:20 - CONCLUSION: Extubation and improving aeration. Jairon Blount MD CT Angiography 05/23/16 0000 Signed Impressions: Service Date/Time: Monday, May 23, 2016 16:59 - CONCLUSION: 1. No pulmonary embolus. 2. Ground glass opacity throughout the lungs which may represent processes such as edema. 3. Mild bilateral pleural effusions. Jairon Vega MD Objective Remarks GENERAL: NAD SKIN: Warm and dry. HEAD: Normocephalic. EYES: No scleral icterus. No injection or drainage. NECK: Supple, trachea midline. No JVD or lymphadenopathy. CARDIOVASCULAR: Regular rate and rhythm without murmurs, gallops, or rubs. RESPIRATORY: Breath sounds equal bilaterally. No accessory muscle use. GASTROINTESTINAL: Abdomen soft, non-tender, nondistended. MUSCULOSKELETAL: No cyanosis; +Trace edema BLE. BACK: Nontender without obvious deformity. No CVA tenderness. Procedures None A/P Problem List: (1) Acute hypoxemic respiratory failure ICD Code: J96.01 Status: Acute (2) NSTEMI (non-ST elevated myocardial infarction) ICD Code: I21.4 Status: Acute (3) Pulmonary edema ICD Code: J81.1 Status: Acute (4) Diabetes ICD Code: E11.9 Status: Chronic (5) Emphysema of lung ICD Code: J43.9 Status: Chronic (6) Anemia ICD Code: D64.9 Status: Chronic (7) Crohns disease ICD Code: K50.90 Status: Chronic (8) Acute on chronic diastolic (congestive) heart failure ICD Code: I50.33 Status: Acute Assessment and Plan 75-year-old female with Acute hypoxemic respiratory failure-resolved Pulmonary edema Acute COPD exacerbation Probable pneumonia -Extubated 05/24/16 -s/p Solu-Medrol 60 every 12, continue prednisone 20 mg daily for 5 days total until 05/29/16 -DuoNeb every 6 hours scheduled and when necessary -Broad spectrum antibiotics including cefepime -CT pulmonary angiogram ruled out acute pulmonary embolus NSTEMI Acute pulmonary edema /congestive heart failure Acute on chronic diastolic CHF Cardiomyopathy probably ischemic -Cardiology Dr. Dillon 2d echo EF 45-50% no wall motion abnormalities. Mild to moderate MR -Abnormal CTA cardiac performed 05/26/16 -Nuclear stress test performed 05/28/16 and negative for ischemic area -s/p Heparin. on Lovenox 30 mg sq q12 - Continue aspirin Coreg and statins -Lasix 20 mg PO BID Status post left total knee arthroplasty: Recent surgery 2 half weeks ago, appreciate input from orthopedic surgery. Continue with PT Possible healthcare associated pneumonia -F/U sputum culture, IV vancomycin x 1 dose 05/23. Continue Cefepime 2 gm IV q8 , patient completed treatment therefore will discontinue antibiotics Hyperglycemia Type 2 diabetes -Sliding-scale insulin, electrolyte replacement protocol PROPH: -Bilateral lower extremity SCDs. Lovenox 30 mg subcutaneous daily . IV Protonix Problem Qualifiers (1) Pulmonary edema: Qualified Code: J81.0 - Acute pulmonary edema (2) Diabetes: (3) Anemia: Eduard Arellano MD May 29, 2016 09:16
[2016-05-29] MEDS ORDERED: REST15CA PO (09:19)
[2016-05-29 09:22] VITALS: PULSE 83
== END 2016-05-29 11:38 | disposition home health service (06) | DRG 189 ==
LOC: NEPC 12:33 → NEDA 14:32 → HIMN 17:20 → N04B 05-25 18:43
PROVIDERS: ADMIT Hospitalist; ATTEND Hospitalist
DX: J96.01 Acute respiratory failure with hypoxia (principal); I21.4 Non-ST elevation (NSTEMI) myocardial infarction; I50.33 Acute on chronic diastolic (congestive) heart failure; J18.9 Pneumonia, unspecified organism; J44.0 Chronic obstructive pulmonary disease with (acute) lower respiratory infection; E11.65 Type 2 diabetes mellitus with hyperglycemia; K50.90 Crohn's disease, unspecified, without complications; D64.9 Anemia, unspecified; E78.00 Pure hypercholesterolemia, unspecified; I10 Essential (primary) hypertension; I25.5 Ischemic cardiomyopathy; M17.9 Osteoarthritis of knee, unspecified; Z87.891 Personal history of nicotine dependence; Z96.649 Presence of unspecified artificial hip joint; Z96.652 Presence of left artificial knee joint
CPT/HCPCS: 31500; 36600; 71010; 71275; 75571; 76937; 78452; 80048; 80053; 80061; 82272; 82550; 82552; 82805; 82948; 83735; 83880; 84100; 84484; 85025; 85027; 85379; 85610; 85730; 87070; 87205; 87641; 93005; 93017; 93306; 94002; 94003; 94640; 94664; 96365; 96375; A9502; C9113; J0330; J0692; J1170; J1644; J1650; J1815; J1940; J2785; J2930; J3370; J7050; J7512; Q9967